=== PATIENT | female | born 1940 | race Caucasian/White ===

== ENCOUNTER → 2017-11-19 12:39 | Outpatient (CLI) | payer MEDICARE, SELFPAY ==
[2017-11-19 13:52] LABS: Hematocrit 40.4 % (37-47); Hemoglobin 13.7 g/dl (12.0-15.0); Mean Corp Hgb Conc 33.9 g/gl (32-36); Mean Corpuscular Hgb 24.2 pg (27.0-32.0); Mean Corpuscular Volume 71.5 fL (81-99); Mean Platelet Vol. 10.3 fl (6.2-12.0); Platelet Count 369 K/mm3 (150-450); RBC Distribution Width CV 19.9 % (11.6-14.6); Red Blood Count 5.65 M/mm3 (4.2-5.4); White Blood Count 9.2 K/mm3 (4.4-11.0)
[2017-11-19 13:54] LABS: Scan Indicated on CBC? Y/N NO
[2017-11-19 14:34] LABS: ALB/GLOB Ratio 0.7 RATIO (0.9-2.4); AST(SGOT) 26 U/L (15-37); Alanine Aminotransfer ALT/SGPT 39 U/L (13-56); Albumin, Serum 3.5 g/dL (3.2-5.0); Alkaline Phosphatase 94 U/L (45-117); Anion Gap 11 (5-15); BUN 21 mg/dL (7-18); BUN/Creat Ratio 16.3 RATIO (10-20); Calcium,Total 9.1 mg/dL (8.5-10.1); Chloride 101 mmol/L (98-107); Cholesterol 139 mg/dL (200); Creatinine, Serum 1.29 mg/dL (0.55-1.02); EST Glomerular Filtration Rate 43 mL/min (>60); Est Glom Filt Rate - Afr Amer 52 mL/min (>60); Globulin 4.9 g/dL (2.2-4.2); Glucose 174 mg/dL (70-110); High Density Lipoprotein 49 mg/dL; Potassium 4.3 mmol/L (3.5-5.1); Protein, Total 8.4 g/dL (6.4-8.2); Sodium Level 136 mmol/L (136-145); Triglycerides 108 mg/dL; Very Low Density Lipoprotein 22 mg/dL (5-40)
[2017-11-19 14:36] LABS: Hemoglobin A1c 6.9 % (4.2-6.3)
== END ==
PROVIDERS: Family Provider Family Medicine; PCP Family Medicine; Visit Provider Family Medicine
DX: I10 Essential (primary) hypertension (principal); E11.9 Type 2 diabetes mellitus without complications; E78.2 Mixed hyperlipidemia
CPT/HCPCS: 36415; 80053; 80061; 82043; 83036; 85027

== ENCOUNTER → 2018-02-25 09:51 | Outpatient (CLI) | payer MEDICARE, SELFPAY ==
[2018-02-25 12:40] LABS: Hemoglobin A1c 7.3 % (4.2-6.3)
[2018-02-25 12:46] LABS: AST(SGOT) 28 U/L (15-37); Alanine Aminotransfer ALT/SGPT 33 U/L (13-56); Albumin, Serum 3.4 g/dL (3.2-5.0); Alkaline Phosphatase 94 U/L (45-117); Anion Gap 12 (5-15); Bilirubin, Direct 0.25 mg/dL (0.00-0.30); Calcium,Total 8.9 mg/dL (8.5-10.1); Chloride 105 mmol/L (98-107); Cholesterol 129 mg/dL (200); EST Glomerular Filtration Rate 39 mL/min (>60); Est Glom Filt Rate - Afr Amer 47 mL/min (>60); Globulin 4.7 g/dL (2.2-4.2); Glucose 161 mg/dL (74-106); High Density Lipoprotein 53 mg/dL; Potassium 4.2 mmol/L (3.5-5.1); Protein, Total 8.1 g/dL (6.4-8.2); Sodium Level 140 mmol/L (136-145); Triglycerides 112 mg/dL; Very Low Density Lipoprotein 22 mg/dL (5-40)
[2018-02-25 13:16] LABS: BUN 21 mg/dL (7-18)
== END ==
PROVIDERS: Family Provider Family Medicine; PCP Family Medicine; Visit Provider Family Medicine
DX: E11.9 Type 2 diabetes mellitus without complications (principal); I10 Essential (primary) hypertension; E78.5 Hyperlipidemia, unspecified
CPT/HCPCS: 36415; 80048; 80061; 80076; 83036

== ENCOUNTER → 2018-02-27 11:33 | Outpatient (CLI) | payer MEDICARE, SELFPAY ==
[2018-02-27 14:02] LABS: Microalbumin:Creatinine Ratio 93.3 mg/g CRE (<30 mg/g CRE)
== END ==
PROVIDERS: Family Provider Family Medicine; PCP Family Medicine; Visit Provider Family Medicine
DX: I10 Essential (primary) hypertension (principal); E78.5 Hyperlipidemia, unspecified; E11.9 Type 2 diabetes mellitus without complications
CPT/HCPCS: 82043; 82570

== ENCOUNTER → 2018-08-07 10:15 | Outpatient (CLI) | payer MEDICARE, SELFPAY ==
[2018-08-07 13:25] LABS: Anion Gap 8 (5-15); BUN 17 mg/dL (7-18); BUN/Creat Ratio 13.8 RATIO (10-20); Calcium,Total 9.1 mg/dL (8.5-10.1); Chloride 105 mmol/L (98-107); Cholesterol 152 mg/dL (200); Creatinine, Serum 1.23 mg/dL (0.55-1.02); EST Glomerular Filtration Rate 45 mL/min (>60); Est Glom Filt Rate - Afr Amer 55 mL/min (>60); Glucose 145 mg/dL (74-106); High Density Lipoprotein 46 mg/dL; Potassium 4.2 mmol/L (3.5-5.1); Sodium Level 137 mmol/L (136-145); Triglycerides 99 mg/dL; Very Low Density Lipoprotein 20 mg/dL (5-40)
== END ==
PROVIDERS: Family Provider Family Medicine; PCP Family Medicine; Visit Provider Family Medicine
DX: I48.91 Unspecified atrial fibrillation (principal); I10 Essential (primary) hypertension
CPT/HCPCS: 36415; 80048; 80061; 82330

== ENCOUNTER → 2019-02-25 15:59 | Outpatient (CLI) | payer MEDICARE, SELFPAY ==
[2019-02-25 18:58] LABS: Anion Gap 10 (5-15); BUN 28 mg/dL (7-18); BUN/Creat Ratio 22.4 RATIO (10-20); Calcium,Total 9.7 mg/dL (8.5-10.1); Chloride 103 mmol/L (98-107); Creatinine, Serum 1.25 mg/dL (0.55-1.02); EST Glomerular Filtration Rate 44 mL/min (>60); Est Glom Filt Rate - Afr Amer 54 mL/min (>60); Glucose 175 mg/dL (74-106); Potassium 5.1 mmol/L (3.5-5.1); Sodium Level 139 mmol/L (136-145)
== END ==
PROVIDERS: Family Provider Family Medicine; PCP Family Medicine; Referring Provider Family Medicine; Visit Provider Family Medicine
DX: I10 Essential (primary) hypertension (principal)
CPT/HCPCS: 36415; 80048

== ENCOUNTER → 2019-05-29 14:59 | Outpatient (CLI) | payer MEDICARE, SELFPAY ==
[2019-05-29 17:19] LABS: Anion Gap 11 (5-15); BUN 20 mg/dL (7-18); BUN/Creat Ratio 14.1 RATIO (10-20); Calcium,Total 9.3 mg/dL (8.5-10.1); Chloride 104 mmol/L (98-107); Cholesterol 158 mg/dL (200); Creatinine, Serum 1.42 mg/dL (0.55-1.02); EST Glomerular Filtration Rate 38 mL/min (>60); Est Glom Filt Rate - Afr Amer 46 mL/min (>60); Glucose 120 mg/dL (74-106); High Density Lipoprotein 50 mg/dL; Potassium 4.6 mmol/L (3.5-5.1); Sodium Level 137 mmol/L (136-145); Triglycerides 138 mg/dL; Very Low Density Lipoprotein 28 mg/dL (5-40)
== END ==
PROVIDERS: Family Provider Family Medicine; PCP Family Medicine; Referring Provider Family Medicine; Visit Provider Family Medicine
DX: E11.9 Type 2 diabetes mellitus without complications (principal)
CPT/HCPCS: 36415; 80048; 80061

== ENCOUNTER 2020-02-17 13:28 | Emergency (ER) | payer MEDICARE, SELFPAY ==
[2020-02-17 13:29] VITALS: BP 133/84; PULSE 118; RESP 24; TEMP 36.2; O2SAT 98; BMI 24.8
--- NOTE | 2020-02-17 14:07 | EKG12_ITS ---
Test Reason : Blood Pressure : / mmHG Vent. Rate : 089 BPM Atrial Rate : 077 BPM P-R Int : 000 ms QRS Dur : 082 ms QT Int : 374 ms P-R-T Axes : 000 009 212 degrees QTc Int : [address] & T wave abnormality, consider inferolateral ischemia Abnormal ECG Confirmed by ABY COLON, FELICIANO ([id number]), editor department CAT LEWIS ([id number]) on 02/22/2020 2:16:50 PM Referred By: JONATHAN Confirmed By:FELICIANO BADILLO MD
[2020-02-17 14:36] LABS: Absolute Lymphocyte Count 1.36 X10^3/uL (0.83-4.51); Absolute Neutrophil Count 11.1 X10^3/uL (2.0-7.7); Basophil# 0.02 X10^3/uL; Basophil% 0.1 % (0-1); Eosinophil# 0.02 X10^3/uL; Eosinophils% 0.1 % (0-5); Hematocrit 31.9 % (37-47); Hemoglobin 9.6 g/dL (12.0-15.0); Lymphocyte # 1.36 X10^3/ul (4.0); Lymphocyte % 9.8 % (19-41); Mean Corp Hgb Conc 30.1 g/dL (32-36); Mean Corpuscular Hgb 21.1 pg (27.0-32.0); Monocyte# 1.16 X10^3/uL; Monocyte% 8.3 % (0-10); NRBC Flagged by Analyzer 1.4 % (0-5); Neutrophil # 11.13 X10^3/uL (2.7-7.7); POSITIVE MORPHOLOGY YES; Platelet Count 360 K/mm3 (150-450); RBC Distribution Width CV 31.2 % (11.6-14.6); RBC Distribution Width SD 63.4 fl (35.1-43.9); Red Blood Count 4.56 M/mm3 (4.2-5.4); White Blood Count 13.9 K/mm3 (4.4-11.0)
[2020-02-17 14:41] LABS: Differential Indicated SCAN CRITERIA MET
--- NOTE | 2020-02-17 14:50 | RAD_ITS ---
STUDY: X-RAY - LEFT FOOT CLINICAL: Female, 79 years old. Poorly healing wound. Swelling. TECHNIQUE: 3 view(s) of the foot. COMPARISON: None. FINDINGS: There is an old, healed fracture of the fifth metatarsal. There is no evidence of acute fracture or dislocation. There are no significant degenerative changes. There are no radiodense foreign bodies. There are no definite radiographic findings of osteomyelitis. There is diffuse soft tissue swelling. RAD/Foot min 3 Views IMPRESSION: Old, healed fracture of the fifth metatarsal. No acute fracture or dislocation. Diffuse soft tissue swelling. No radiodense foreign body. No definite radiographic findings of osteomyelitis. Electronically Signed: José Miguel De Leon, at 15:20 EDT Tel , Service support ,
--- NOTE | 2020-02-17 14:50 | RAD_ITS ---
STUDY: X-RAY CHEST REASON FOR EXAM: Female, 79 years old. Shortness of breath TECHNIQUE: Frontal view of the chest COMPARISON: 07/25/2015 FINDINGS: The lungs are clear. There are no pleural effusions. There is no pneumothorax. The heart is enlarged. The visualized osseous structures are within normal limits. RAD/Chest 1 View (Portable) IMPRESSION: Cardiomegaly. Clear lungs. Electronically Signed: José Miguel De Leon, at 15:23 EDT Tel , Service support ,
[2020-02-17 15:08] LABS: Anisocytosis 1+
[2020-02-17 15:12] LABS: ALB/GLOB Ratio 0.4 RATIO (0.9-2.4); AST(SGOT) 42 U/L (15-37); Alanine Aminotransfer ALT/SGPT 19 U/L (13-56); Albumin, Serum 2.2 g/dL (3.2-5.0); Alkaline Phosphatase 186 U/L (45-117); Anion Gap 7 (5-15); BUN 34 mg/dL (7-18); BUN/Creat Ratio 25.6 RATIO (10-20); Calcium,Total 8.9 mg/dL (8.5-10.1); Chloride 109 mmol/L (98-107); Creatinine, Serum 1.33 mg/dL (0.55-1.02); EST Glomerular Filtration Rate 41 mL/min (>60); Est Glom Filt Rate - Afr Amer 50 mL/min (>60); Estimated Creatinine Clearance 28.02 ml/min; Globulin 5.3 g/dL (2.2-4.2); Glucose 254 mg/dL (74-106); Potassium 5.2 mmol/L (3.5-5.1); Protein, Total 7.5 g/dL (6.4-8.2); Sodium Level 136 mmol/L (136-145)
[2020-02-17 15:35] VITALS: BP 116/69; PULSE 99; RESP 20; TEMP 36.6; O2SAT 100
--- NOTE | 2020-02-17 15:57 | NURSING ---
DR HU FOR DR CASTILLO
--- NOTE | 2020-02-17 16:01 | NURSING ---
DR PETTY IN ER
--- NOTE | 2020-02-17 16:10 | NURSING ---
MED SURG TERELETSKY DRY GANGRENE LEFT GREAT TOE, URI
--- NOTE | 2020-02-17 16:58 | PCM.CONS.GEN ---
Reason for Consult Date of Consultation: 02/17/20 Reason for Consultation: Gangrene left 1st toe History of Present Illness: The patient is a 79 year old female presented to the ER with black left 1st toe. Patient relates she stepped on something in Nov 2019, and now the toe is black. She relates she thinks it is getting better. She did have two appointments scheduled to see me in office as a new patient, however she canceled them, first one she canceled due to concerns about the coronavirus and her other scheduled appointment was suppose to be today however she canceled because she declined to come to the ER instead. I was called by both Dr. Farias and Dr. Trinidad. There is concern about critical limb ischemia and transfer is being considered. Patient has pain to the toe. She is a smoker. Her WBC is elevated. She is resting on the bed in the her room in the ER. Past Medical History Allergies nut - unspecified Allergy (Verified 02/17/20 13:29) Itching Home Medications: Ambulatory Orders Medication Instructions Recorded Apixaban [Eliquis] 5 mg PO BID 02/17/20 Metoprolol Tartrate [Lopressor 50 mg PO BID 02/17/20 (beta margy)] Smoking Status: Former smoker Tobacco Use: Non-smoker - *Family History Maternal History Items: No pertinent history Review of Systems Constitutional: Denies: Chills, Fever Gastrointestinal: Denies: Nausea, Vomiting - Physical Exam Vitals/I&O's: Vital Signs Temp Pulse Resp BP Pulse Ox 98 F 99 20 H 116/69 100 02/17/20 15:35 02/17/20 15:35 02/17/20 15:35 02/17/20 15:35 02/17/20 15:35 Oxygen Delivery Method Room Air Weight: 61.689 kg Body Mass Index (BMI) 24.8 Intake and Output for Last 24 Hours 02/15/20 02/16/20 02/17/20 23:59 23:59 23:59 Intake Total 500 / 500 Balance 500 / 500 General: Alert, Oriented x3, Cooperative, No apparent distress Extremities: No Calf Tenderness, Cool - Left foot is cool, Diminished Peripheral Pulses, Tenderness - to the left 1st toe, - - There is dry gangrene to the 1st toe on the left foot, there is mottled appears to the left foot and distal leg with decreased temperature and delayed capillary fill time to the toes, there is small eschar to the distal left 3rd toe, pedal pulses diminished. There is no visible abscess, and otherwise no open ulcerations, no drainage, no fluctuance, no maloder present to the foot or ankle bilateral. Sensation intact to light touch bilateral foot. Musculoskeletal: Muscle Wasting Psych/Mental Status: Normal Affect, Appropriate, Alert and oriented to time, place, person, mood and affect Laboratory Results 02/17/20 14:18: WBC 13.9 H, RBC 4.56, Hgb 9.6 L, Hct 31.9 L, MCV 70.0 L, MCH 21.1 L, MCHC 30.1 L, RDW Std Deviation 63.4 H, RDW Coeff of Marga 31.2 H, Plt Count 360, MPV 10.0, Immature Gran % (Auto) 1.700 H, Neut % (Auto) 80.0 H, Lymph % (Auto) 9.8 L, Green % (Auto) 8.3, Eos % (Auto) 0.1, Baso % (Auto) 0.1, Absolute Neuts (auto) 11.1 H, Absolute Lymphs (auto) 1.36, Nucleated RBC % 1.4, Anisocytosis 1+ 02/17/20 14:18: Sodium 136, Potassium 5.2 H, Chloride 109 H, Carbon Dioxide 20.0 L, Anion Gap 7, BUN 34 H, Creatinine 1.33 H, Estim Creat Clear Calc 28.02, Est GFR (MDRD) Af Amer 50 L, Est GFR (MDRD) Non-Af 41 L, BUN/Creatinine Ratio 25.6 H, Glucose 254 H, Calcium 8.9, Total Bilirubin 0.70, AST 42 H, ALT 19, Alkaline Phosphatase 186 H, Total Protein 7.5, Albumin 2.2 L, Globulin 5.3 H, Albumin/Globulin Ratio 0.4 L Assessment/Plan All Active Problems Colles' fracture of left radius (Acute) Dehydration (Acute) Atrial fibrillation with RVR (Acute) Diarrhea (Acute) Wrist fracture, left (Acute) Gangrene, critical limb ischemia left foot Lower extremity Peripheral Arterial Disease Evaluation performed. Reviewed findings with patient, discussed with Dr. Farias and Vivi. I was in contact with Dr. Ching to check his availability, and he is not available until Saturday. Given findings patient will be transferred to [facility] today for urgent vascular evaluation and management.
[2020-02-17 17:23] VITALS: BP 104/88; PULSE 113; RESP 14; TEMP 36.6; O2SAT 99
--- NOTE | 2020-02-17 17:54 | ED.VIS.GEN ---
History of Present Illness Chief Complaint: Wound Informant: Patient Onset: Month(s) - 2 Narrative: Presents from home for evaluation wound to left great toe. Reports was walking in the end of November when she felt pain there is no direct injuries. She reports her whole toe was black at one point and has slowly improved. She did not see a healthcare provider since. Reports history of diabetes not on any medications, history of peripheral arterial disease noted from 2016 she is unclear if she seen a vascular surgeon. She is half pack per day smoker. Reports been having increased pain with ambulation. No fevers. No drainage from the wound. Reports daughter was setting up an outpatient podiatry follow-up had one at 1:10 PM today however decided to come to the emergency department. She reports she is had some dyspnea with exertion for the past week with mild cough. Denies fever. Denies wheezing. She is on Eliquis for history of atrial fibrillation along with metoprolol. Denies any headache myalgias vomiting or diarrhea. Prior similar symptoms: No Past Medical History - Allergies and Home Meds Allergies/Adverse Reactions: Allergies nut - unspecified Allergy (Verified 02/17/20 13:29) Itching Primary Care Physician: Theo Hubbard MD [Primary Care Provider] - Past Medical History: - - Atrial fibrillation, diabetes, peripheral arterial disease, Smoking Status: Former smoker - Family History Maternal Family History: Reports: No pertinent history Review of Systems General: Denies: Chills, Fever, Sweats Eyes: Denies: Visual changes - bilaterally, Diplopia ENT: Denies: Rhinorrhea, Sore throat Cardiovascular: Denies: Chest pain, Palpitations Respiratory: Reports: Cough. Denies: Dyspnea, Dyspnea on exertion Gastrointestinal: Denies: Abdominal pain, Nausea, Vomiting, Diarrhea, Melena, Hematochezia Genitourinary: Denies: Dysuria, Hematuria, Frequency Musculoskeletal: Denies: Back pain, Extremity Pain Skin: Reports: Wounds. Denies: Rash Neurological: Denies: Headache, Weakness, Numbness Physical Exam Vital Signs/Narrative: Vital Signs Temp Pulse Resp BP Pulse Ox 02/17/20 17:23 98 F 113 H 14 104/88 H 99 02/17/20 15:35 98 F 99 20 H 116/69 100 Inital Vital Signs reviewed: Yes General: Well nourished, Well developed, No Acute Distress Head: Normocephalic, Atraumatic Eyes: Perrl, EOMI ENT: Moist mucous membranes, No rhinorrhea Neck: Supple, Nontender Cardiovascular: Regular rate, Regular rhythm, No murmurs, Tachycardia Respiratory: No distress, CTA bilaterally, Chest nontender Abdomen: Soft, Nontender, Nondistended, Normal bowel sounds Back: Nontender, Normal Inspection Extremities: - - Left foot: Great toe gangrenous distal phalanx, no drainage. No streaking. Diminished pulses of the left foot however palpable PT pulses. There was noted slight cyanosis distal tips of toes 2 through 4. Skin: - - See above Neurological: Alert, Oriented x3, Cranial nerves II-XII grossly intact, Normal Strength, Normal Sensation Psychological: Normal affect, Normal Mood Diagnostic/Tx/Re-eval Clinical Impression(s) from Imaging Studies Chest X-Ray 02/17/20 14:50 IMPRESSION: Cardiomegaly. Clear lungs. Electronically Signed: José Miguel Haley, at 15:23 EDT Tel , Service support , Foot X-Ray 02/17/20 14:50 IMPRESSION: Old, healed fracture of the fifth metatarsal. No acute fracture or dislocation. Diffuse soft tissue swelling. No radiodense foreign body. No definite radiographic findings of osteomyelitis. Electronically Signed: José Miguel Haley, at 15:20 EDT Tel , Service support , Abnormal Lab Results 02/17/20 02/17/20 14:18 14:18 WBC 13.9 H RBC 4.56 Hgb 9.6 L Hct 31.9 L MCV 70.0 L MCH 21.1 L MCHC 30.1 L RDW Std Deviation 63.4 H RDW Coeff of Marga 31.2 H Plt Count 360 MPV 10.0 Immature Gran % (Auto) 1.700 H Neut % (Auto) 80.0 H Lymph % (Auto) 9.8 L Kay % (Auto) 8.3 Eos % (Auto) 0.1 Baso % (Auto) 0.1 Absolute Neuts (auto) 11.1 H Absolute Lymphs (auto) 1.36 Nucleated RBC % 1.4 Anisocytosis 1+ Sodium 136 Potassium 5.2 H Chloride 109 H Carbon Dioxide 20.0 L Anion Gap 7 BUN 34 H Creatinine 1.33 H Estim Creat Clear Calc 28.02 Est GFR (MDRD) Af Amer 50 L Est GFR (MDRD) Non-Af 41 L BUN/Creatinine Ratio 25.6 H Glucose 254 H Calcium 8.9 Total Bilirubin 0.70 AST 42 H ALT 19 Alkaline Phosphatase 186 H Total Protein 7.5 Albumin 2.2 L Globulin 5.3 H Albumin/Globulin Ratio 0.4 L - Medical Decision Making Patient nontoxic however tachycardic on arrival. Her reported history exam concerns for dry gangrenous screen of the great toe. With patient having appointment with podiatry for which she did not go I did discuss with Dr. Aviles after my evaluation with her reported improving gangrenous findings from her history, he states he would like her admitted for his evaluation likely debridement with vascular involvement. Work-up was initiated, white count 13.9, hemoglobin 9.6, creatinine 1.2. With patient's cough chest x-ray obtained which was negative. EKG is rate controlled atrial fibrillation. I did have hospitalist evaluation in the ED by Dr. Trinidad, who evaluate the patient, states there is limited vascular involvement only on Wednesdays, they will be unable to follow, therefore he asked Dr. Aviles to evaluate in the ED. Evaluated, with concerns of cyanosis and decreased vascular flow, they did feel vascular surgeon needs to be involved therefore recommended tertiary transfer, patient [facility] to [facility]. Transfer line was contacted, patient will be admitted under the service of Dr. Marquez. With concern for dry gangrene, do not feel antibiotics are necessary at this time. ED Disposition - Plan for ED Patient: Disposition: Home or Assisted Living Diagnosis: dry gangrene left great toe, PAD (peripheral artery disease), Intermittent claudication Referrals: Theo Hubbard MD [Primary Care Provider] -
--- NOTE | 2020-02-17 18:02 | NURSING ---
[place] [id number] ROOM 5106 NURSE TO NURSE [phone]ONZ[address]Z
--- NOTE | 2020-02-17 18:10 | NURSING ---
[facility] CALLED. ETA IS 30 TO 45 MIN
--- NOTE | 2020-02-17 18:21 | ED.RN ---
Called report to CHELLE Euceda at [facility].
[2020-02-17 18:30] VITALS: BP 106/76; BP 110/76; PULSE 110; RESP 15; RESP 26; TEMP 36.8; O2SAT 100; O2SAT 99
== END 2020-02-17 19:05 | disposition short-term general hospital (02) ==
PROVIDERS: Emergency Provider Emergency Medicine; PCP Family Medicine
DX: E11.52 Type 2 diabetes mellitus with diabetic peripheral angiopathy with gangrene (principal); I48.91 Unspecified atrial fibrillation; R00.0 Tachycardia, unspecified; R06.09 Other forms of dyspnea; F17.200 Nicotine dependence, unspecified, uncomplicated; Z79.01 Long term (current) use of anticoagulants; Z79.899 Other long term (current) drug therapy
CPT/HCPCS: 71045; 73630; 80053; 85025; 93005; 99285; J7040

== ENCOUNTER → 2020-04-20 15:16 | Outpatient (CLI) | payer MEDICARE, SELFPAY ==
[2020-04-20 17:59] LABS: Vitamin D,25 Hydroxy 57.8 ng/mL
[2020-04-20 18:58] LABS: Anion Gap 8 (5-15); BUN 33 mg/dL (7-18); BUN/Creat Ratio 28.9 RATIO (10-20); Calcium,Total 9.1 mg/dL (8.5-10.1); Chloride 103 mmol/L (98-107); Cholesterol 122 mg/dL (200); Creatinine, Serum 1.14 mg/dL (0.55-1.02); EST Glomerular Filtration Rate 49 mL/min (>60); Est Glom Filt Rate - Afr Amer 59 mL/min (>60); Glucose 133 mg/dL (74-106); High Density Lipoprotein 57 mg/dL; Potassium 4.5 mmol/L (3.5-5.1); Sodium Level 137 mmol/L (136-145); Triglycerides 102 mg/dL; Very Low Density Lipoprotein 20 mg/dL (5-40)
== END ==
PROVIDERS: PCP Family Medicine; Visit Provider Family Medicine
DX: E11.9 Type 2 diabetes mellitus without complications (principal); E55.9 Vitamin D deficiency, unspecified
CPT/HCPCS: 36415; 80048; 80061; 82306

== ENCOUNTER → 2020-05-03 13:31 | Outpatient (CLI) | payer MEDICARE, SELFPAY ==
[2020-05-03 15:14] LABS: Hematocrit 32.4 % (37-47); Hemoglobin 9.4 g/dL (12.0-15.0); Mean Corpuscular Hgb 23.7 pg (27.0-32.0); Mean Corpuscular Volume 81.8 fL (81-99); Mean Platelet Vol. 9.5 fl (6.2-12.0); POSITIVE MORPHOLOGY YES; Platelet Count 438 K/mm3 (150-450); RBC Distribution Width CV 20.7 % (11.6-14.6); RBC Distribution Width SD 61.5 fl (35.1-43.9); Red Blood Count 3.96 M/mm3 (4.2-5.4); White Blood Count 9.5 K/mm3 (4.4-11.0)
[2020-05-03 15:16] LABS: Scan Indicated on CBC? Y/N YES- FLAGS NOTED
[2020-05-03 16:10] LABS: Differential Comment SEE COMMENTS
== END ==
PROVIDERS: PCP Family Medicine
DX: I50.22 Chronic systolic (congestive) heart failure (principal)
CPT/HCPCS: 36415; 85027

== ENCOUNTER → 2020-10-26 15:36 | Outpatient (CLI) | payer MEDICARE, SELFPAY ==
[2020-05-11 13:40] VITALS: BMI 24.8
[2020-10-26 18:37] LABS: Anion Gap 10 (5-15); BUN 48 mg/dL (7-18); BUN/Creat Ratio 29.4 RATIO (10-20); Calcium,Total 9.6 mg/dL (8.5-10.1); Chloride 102 mmol/L (98-107); Cholesterol 140 mg/dL (200); Creatinine, Serum 1.63 mg/dL (0.55-1.02); EST Glomerular Filtration Rate 32 mL/min (>60); Est Glom Filt Rate - Afr Amer 39 mL/min (>60); Glucose 204 mg/dL (74-106); High Density Lipoprotein 66 mg/dL; Potassium 4.9 mmol/L (3.5-5.1); Sodium Level 135 mmol/L (136-145); Triglycerides 89 mg/dL; Very Low Density Lipoprotein 18 mg/dL (5-40)
== END ==
PROVIDERS: PCP Family Medicine; Referring Provider Family Medicine; Visit Provider Family Medicine
DX: E11.9 Type 2 diabetes mellitus without complications (principal)
CPT/HCPCS: 36415; 80048; 80061

== ENCOUNTER 2020-12-27 08:26 | Outpatient (RCR) | payer MEDICARE, SELFPAY ==
[2020-05-11 13:40] VITALS: BMI 24.8
[2020-12-27] MEDS: COVID-19 VACC, MRNA(PFIZER)/PF 30 MCG/0.3 ML SYRINGE IM (11:06)
[2021-01-17] MEDS: COVID-19 VACC, MRNA(PFIZER)/PF 30 MCG/0.3 ML SYRINGE IM (11:03)
== END 2021-03-28 23:59 ==
LOC: IMMUN 08:26
PROVIDERS: PCP Family Medicine; Visit Provider Family Medicine
DX: Z23 Encounter for immunization (principal)
CPT/HCPCS: 0001A; 0002A; 91300

== ENCOUNTER → 2021-01-25 14:42 | Outpatient (CLI) | payer MEDICARE, SELFPAY ==
[2020-05-11 13:40] VITALS: BMI 24.8
[2021-01-25 18:18] LABS: Anion Gap 5 (5-15); BUN 31 mg/dL (7-18); BUN/Creat Ratio 19.9 RATIO (10-20); Calcium,Total 9.5 mg/dL (8.5-10.1); Chloride 105 mmol/L (98-107); Creatinine, Serum 1.56 mg/dL (0.55-1.02); EST Glomerular Filtration Rate 34 mL/min (>60); Est Glom Filt Rate - Afr Amer 41 mL/min (>60); Glucose 162 mg/dL (74-106); Potassium 4.2 mmol/L (3.5-5.1); Sodium Level 135 mmol/L (136-145)
== END ==
PROVIDERS: PCP Family Medicine; Referring Provider Family Medicine; Visit Provider Family Medicine
DX: E11.9 Type 2 diabetes mellitus without complications (principal)
CPT/HCPCS: 36415; 80048

== ENCOUNTER 2021-03-13 20:26 | Inpatient (IN) | payer MEDICARE, SELFPAY ==
[2020-05-11 13:40] VITALS: BMI 24.8
[2021-03-13 20:26] VITALS: BP 125/58; PULSE 65; RESP 18; TEMP 36.6; O2SAT 97; BMI 26.9
[2021-03-13 21:24] LABS: Absolute Lymphocyte Count 2.43 X10^3/uL (0.83-4.51); Absolute Neutrophil Count 6.8 X10^3/uL (2.0-7.7); Basophil# 0.06 X10^3/uL; Basophil% 0.6 % (0-1); Eosinophil# 0.09 X10^3/uL; Eosinophils% 0.9 % (0-5); Lymphocyte # 2.43 X10^3/ul (0.83-4.51); Lymphocyte % 23.1 % (19-41); Mean Corp Hgb Conc 26.3 g/dL (32-36); Mean Corpuscular Hgb 15.7 pg (27.0-32.0); Mean Corpuscular Volume 59.7 fL (81-99); Mean Platelet Vol. 9.9 fl (6.2-12.0); Monocyte# 1.06 X10^3/uL; Monocyte% 10.1 % (0-10); NRBC Flagged by Analyzer 1.7 % (0-5); Neutrophil # 6.84 X10^3/uL (2.7-7.7); Neutrophil % 64.7 % (47-70); POSITIVE COUNT YES; POSITIVE MORPHOLOGY YES; Platelet Count 565 K/mm3 (150-450); RBC Distribution Width CV 20.9 % (11.6-14.6); RBC Distribution Width SD 42.2 fl (35.1-43.9); Red Blood Count 2.68 M/mm3 (4.2-5.4); White Blood Count 10.5 K/mm3 (4.4-11.0)
[2021-03-13 21:53] LABS: Differential Indicated SCAN CRITERIA MET
[2021-03-13 21:54] LABS: Hemoglobin 4.2 g/dL (12.0-15.0)
[2021-03-13 21:55] LABS: Differential Comment SCANNED
[2021-03-13 22:03] LABS: International Normalized Ratio 1.9
[2021-03-13 22:26] VITALS: BP 150/59; PULSE 57; RESP 20; O2SAT 99
--- NOTE | 2021-03-13 22:49 | EX.ED.DYSGE1 ---
HPI History of Present Illness Chief Complaint: Abn Labs Narrative Narrative: Patient presents to the emergency department brought in by her daughter, she has been more somnolent and weak recently, she had an outpatient blood draw which showed low hemoglobin. She does have a history of peripheral vascular disease, she has been seen at [facility], she is on Eliquis. She did say she had a bowel movement today with some blood in it. No abdominal pain, no other injuries. [facility] Medical History (Updated 03/13/21 @ 22:[address] Theo Glover MD) Anemia Atrial fibrillation with RVR CHF (congestive heart failure) Colles' fracture of left radius Congestive heart failure (CHF) Coronary artery disease Dehydration Diabetes Diarrhea High cholesterol PAD (peripheral artery disease) Wrist fracture, left Home Medications apixaban 5 mg PO BID 02/17/20 [History Last Taken 02/17/20] aspirin 81 mg tablet,delayed release 81 mg PO DAILY 05/11/20 [History Last Taken Unknown] atorvastatin 80 mg tablet 80 mg PO DAILY 05/11/20 [History Last Taken Unknown] furosemide 20 mg tablet 20 mg PO DAILY 05/11/20 [History Last Taken Unknown] glipizide 5 mg tablet 5 mg PO DAILY 05/11/20 [History Last Taken Unknown] metoprolol tartrate 50 mg tablet 50 mg PO DAILY tab 05/11/20 [History Last Taken Unknown] amiodarone 200 mg DAILY 03/13/21 [History Last Taken Unknown] Allergy/AdvReac Type Severity Reaction Status Date / Time nut - unspecified Allergy Itching Verified 05/11/20 13:38 Surgical History History of surgery on left wrist S/P arteriogram of extremity S/P cataract extraction S/P right heart catheterization 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 Debbie Adams MD) Smoking Status: Current some day smoker alcohol intake: former ROS ROS ED ROS Narrative Past medical history: Reviewed Medications: Reviewed Social history: Noncontributory Review of systems: All systems negative except as indicated General: No fever. Generalized weakness as in HPI Eyes: No visual changes ENT: No upper airway congestion, normal voice Neck: No neck pain Cardiovascular: No chest pain Respiratory: No shortness of breath or cough Gastrointestinal: No abdominal pain, nausea vomiting or diarrhea. She did notice bright red blood per rectum Genitourinary: No dysuria Musculoskeletal: Denies myalgias no difficulty with ambulation Skin: No rash Neurological: No memory loss, confusion or any focal weakness Psych: No recent behavioral changes Hematologic: No easy bleeding or easy bruising EXAM Physical Exam Narrative Exam Narrative: Physical exam General: Patient appears chronically ill Head: Normocephalic, Atraumatic Eyes: Conjunctiva are quite pale ENT: Slightly dry mucous membranes Neck: Supple, Nontender, No lymphadenopathy Cardiovascular: Regular rate, Regular rhythm Respiratory: No distress, CTA bilaterally Abdomen: Soft, Nontender, Nondistended Back: Nontender, Normal Inspection. Negative for: CVA tenderness Extremities: Nontender, No edema Skin: Pale Rectal: There is bright red blood no obvious hemorrhoid Neurological: Alert, Normal Strength, Normal Sensation Psychological: Normal affect Const Vital Signs: 03/13/21 20:26 03/13/21 20:39 03/13/21 22:26 Temperature 97.8 F Temperature Source Temporal Pulse Rate 65 57 L Respiratory Rate 18 20 H Respiratory Effort Normal Non-Labored Respiratory Pattern Normal Blood Pressure 125/58 H 150/59 H Blood Pressure Mean 80 89 Pulse Ox 97 99 Oxygen Delivery Method Room Air Room Air MDM MDM MDM Narrative Medical decision making narrative: Patient is found to be quite anemic, hemoglobin is 4.2 we will transfuse. Initially she wanted to go to [facility] however they do not have any current beds. I will admit her here in the meantime. If she needs further treatment she can be transferred when there is beds. At this time she is hemodynamically stable thus I believe the bleed was somewhat slow. Lab Data Labs: Laboratory Results - last 24 hr 03/13/21 03/13/21 03/13/21 21:05 21:05 21:05 WBC 10.5 RBC 2.68 L Hgb 4.2 L* Hct 16.0 L MCV 59.7 L MCH 15.7 L MCHC 26.3 L RDW Std Deviation 42.2 RDW Coeff of Marga 20.9 H Plt Count 565 H MPV 9.9 Immature Gran % (Auto) 0.600 Neut % (Auto) 64.7 Lymph % (Auto) 23.1 [place] % (Auto) 10.1 H Eos % (Auto) 0.9 Baso % (Auto) 0.6 Absolute Neuts (auto) 6.8 Absolute Lymphs (auto) 2.43 Nucleated RBC % 1.7 Differential Comment SCANNED Diff Path Review February PT 21.0 H INR 1.9 Blood Type Cancelled Antibody Screen Cancelled Discharge Plan Triage Chief Complaint: Abn Labs ED Provider: Theo Glover Dx/Rx/DC Orders Clinical Impression: Acute GI bleeding, Anemia Prescriptions: No Action furosemide [Lasix] 20 mg tablet 20 mg PO DAILY RF: 0 atorvastatin 80 mg tablet 80 mg PO DAILY RF: 0 aspirin [Adult Low Dose Aspirin] 81 mg tablet,delayed release (DR/EC) 81 mg PO DAILY RF: 0 glipizide 5 mg tablet 5 mg PO DAILY RF: 0 apixaban 5 mg tablet 5 mg PO BID RF: 0 metoprolol tartrate 50 mg tablet 50 mg PO DAILY RF: 0 amiodarone 200 mg tablet 200 mg DAILY RF: 0 Primary Care Provider: Theo Hubbard Referrals: Theo Hubbard MD [Primary Care Provider] - Disposition Disposition: Acute Care Hospital [facility]
--- NOTE | 2021-03-13 23:00 | PCM.HP.STD ---
HPI - General HPI Narrative REBA STEPHENS, is a 80 F who presents to the emergency room after having an outpatient hemoglobin of 4. The patient has a significant past medical history of peripheral vascular disease for which she takes Eliquis routinely. Over the past few days she has noticed some red tinge to her stool. At this time she denies chest pain or shortness of breath, fever or chills and denies nausea. 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 She will be admitted to the hospital for blood transfusion. [facility] Medical History (Updated 03/13/21 @ 22:[address] Theo Glover MD) Anemia Atrial fibrillation with RVR CHF (congestive heart failure) Colles' fracture of left radius Congestive heart failure (CHF) Coronary artery disease Dehydration Diabetes Diarrhea High cholesterol PAD (peripheral artery disease) Wrist fracture, left Home Medications apixaban 5 mg PO BID 02/17/20 [History Last Taken 02/17/20] aspirin 81 mg tablet,delayed release 81 mg PO DAILY 05/11/20 [History Last Taken Unknown] atorvastatin 80 mg tablet 80 mg PO DAILY 05/11/20 [History Last Taken Unknown] furosemide 20 mg tablet 20 mg PO DAILY 05/11/20 [History Last Taken Unknown] glipizide 5 mg tablet 5 mg PO DAILY 05/11/20 [History Last Taken Unknown] metoprolol tartrate 50 mg tablet 50 mg PO DAILY tab 05/11/20 [History Last Taken Unknown] amiodarone 200 mg DAILY 03/13/21 [History Last Taken Unknown] Allergy/AdvReac Type Severity Reaction Status Date / Time nut - unspecified Allergy Itching Verified 05/11/20 13:38 Surgical History History of surgery on left wrist S/P arteriogram of extremity S/P cataract extraction S/P right heart catheterization 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 Debbie dAams MD) Smoking Status: Current some day smoker alcohol intake: former ROS Constitutional Constitutional: Reports fatigue; Denies chills Eyes Eyes: Denies change in vision ENT HEENT: Denies abnormal hearing Cardiovascular Cardiovascular: Denies chest pain Respiratory/Chest Respiratory/Chest: Denies shortness of breath at rest Gastrointestinal Gastrointestinal: Denies abdominal pain Genitourinary Genitourinary: Denies hematuria Integumentary Integumentary: Denies dry skin Neurologic Neurologic: Reports weakness Psychiatric Psychiatric: Denies anxiety Vital Signs Vital Signs Vital Signs: 03/13/21 20:26 03/13/21 20:39 03/13/21 22:26 Temperature 97.8 F Temperature Source Temporal Pulse Rate 65 57 L Respiratory Rate 18 20 H Respiratory Effort Normal Non-Labored Respiratory Pattern Normal Blood Pressure 125/58 H 150/59 H Blood Pressure Mean 80 89 Pulse Ox 97 99 Oxygen Delivery Method Room Air Room Air Weight Weight: 147 lb Body Mass Index (BMI) 26.9 Physical Exam Const oriented x3 Constitutional Narrative: pale HEENT normocephalic Eyes PERRL Neck supple Lymph Lymphatic: no lymphadenopathy noted Resp normal respiratory effort and clear to auscultation bilaterally Cardio regular rate, regular rhythm, S1 normal heart sound and S2 normal heart sound GI soft to palpation and non-tender Skin Skin Narrative: pale Neuro CN's II-XII intact bilaterally Psych affect normal Lab / Micro Data Result Diagrams: 03/13/21 21:05 03/13/21 21:05 Labs: Laboratory Results - last 24 hr 03/13/21 03/13/21 03/13/21 21:05 21:05 21:05 WBC 10.5 RBC 2.68 L Hgb 4.2 L* Hct 16.0 L MCV 59.7 L MCH 15.7 L MCHC 26.3 L RDW Std Deviation 42.2 RDW Coeff of Marga 20.9 H Plt Count 565 H MPV 9.9 Immature Gran % (Auto) 0.600 Neut % (Auto) 64.7 Lymph % (Auto) 23.1 [place] % (Auto) 10.1 H Eos % (Auto) 0.9 Baso % (Auto) 0.6 Absolute Neuts (auto) 6.8 Absolute Lymphs (auto) 2.43 Nucleated RBC % 1.7 Differential Comment SCANNED Diff Path Review February foll PT 21.0 H INR 1.9 Blood Type Cancelled Antibody Screen Cancelled Crossmatch 03/13/21 03/13/21 21:25 21:25 WBC RBC Hgb Hct MCV MCH MCHC RDW Std Deviation RDW Coeff of Marga Plt Count MPV Immature Gran % (Auto) Neut % (Auto) Lymph % (Auto) [place] % (Auto) Eos % (Auto) Baso % (Auto) Absolute Neuts (auto) Absolute Lymphs (auto) Nucleated RBC % Differential Comment Diff Path Review PT INR Blood Type AB POSITIVE Antibody Screen NEGATIVE Crossmatch See Detail Micro: Microbiology 03/13/21 21:10 SARS-CoV-2 Antigen (Rapid) - Final Interface Orders 03/13/21 21:10 Stool Occult Blood (ERIN) - Final Stool Occult Blood Positive Assessment & Plan Assessment/Plan (1) Acute GI bleeding: (2) Status post amputation of toe: (3) Diabetes: (4) Anemia: (5) High cholesterol: (6) PAD (peripheral artery disease): (7) CHF (congestive heart failure): PLAN: Plan 1. Acute anemia secondary to GI blood loss due to anticoagulation with Eliquis?admit patient to general medical floor type cross transfuse 2 units packed red blood cells repeat H&H 1 hour posttransfusion 2. Diabetes?continue home care routine 3. Hyperlipidemia?continue statin 4. DVT prophylaxis?SCDs When hemodynamically stable consider transfer to [facility] or discharge to home to have outpatient procedure to recanalize her bypass in the left leg Visit Charges Inpatient E&M: 07390 Init Hosp L2
[2021-03-13 23:02] LABS: ALB/GLOB Ratio 0.7 RATIO (0.9-2.4); AST(SGOT) 20 U/L (15-37); Alanine Aminotransfer ALT/SGPT 20 U/L (13-56); Albumin, Serum 3.2 g/dL (3.2-5.0); Alkaline Phosphatase 107 U/L (45-117); Anion Gap 12 (5-15); BUN 48 mg/dL (7-18); BUN/Creat Ratio 22.3 RATIO (10-20); Chloride 101 mmol/L (98-107); Creatinine, Serum 2.15 mg/dL (0.55-1.02); EST Glomerular Filtration Rate 24 mL/min (>60); Est Glom Filt Rate - Afr Amer 29 mL/min (>60); Estimated Creatinine Clearance 17.06 ml/min; Globulin 4.8 g/dL (2.2-4.2); Glucose 156 mg/dL (74-106); Sodium Level 133 mmol/L (136-145)
[2021-03-13 23:05] VITALS: BP 144/41; PULSE 57; RESP 15; TEMP 36.8; O2SAT 100
[2021-03-13 23:24] VITALS: BP 144/41; PULSE 60; RESP 17; TEMP 36.4; O2SAT 97
[2021-03-13 23:29] VITALS: BP 138/48; PULSE 59; RESP 13; TEMP 36.6; O2SAT 97
[2021-03-13 23:51] VITALS: BP 138/48; PULSE 56; RESP 13; TEMP 36.8; O2SAT 100
[2021-03-14] VITALS (38 sets, daily range): BP systolic 87–180; BP diastolic 21–101; PULSE 44–63; RESP 16–26; TEMP 30.2–37; O2SAT 17–100; BMI 27.2
[2021-03-14 05:23] LABS: Absolute Lymphocyte Count 2.21 X10^3/uL (0.83-4.51); Absolute Neutrophil Count 4.7 X10^3/uL (2.0-7.7); Basophil# 0.07 X10^3/uL; Basophil% 0.9 % (0-1); Eosinophil# 0.13 X10^3/uL; Eosinophils% 1.6 % (0-5); Hematocrit 22.1 % (37-47); Hemoglobin 6.3 g/dL (12.0-15.0); Lymphocyte # 2.21 X10^3/ul (0.83-4.51); Lymphocyte % 27.9 % (19-41); Mean Corp Hgb Conc 28.5 g/dL (32-36); Mean Corpuscular Hgb 19.6 pg (27.0-32.0); Mean Corpuscular Volume 68.6 fL (81-99); Mean Platelet Vol. 9.3 fl (6.2-12.0); Monocyte# 0.74 X10^3/uL; Monocyte% 9.4 % (0-10); NRBC Flagged by Analyzer 1.5 % (0-5); Neutrophil # 4.73 X10^3/uL (2.7-7.7); Neutrophil % 59.8 % (47-70); POSITIVE MORPHOLOGY YES; Platelet Count 435 K/mm3 (150-450); RBC Distribution Width CV 30.5 % (11.6-14.6); RBC Distribution Width SD 68.7 fl (35.1-43.9); Red Blood Count 3.22 M/mm3 (4.2-5.4); White Blood Count 7.9 K/mm3 (4.4-11.0)
[2021-03-14 05:24] LABS: Differential Indicated SCAN CRITERIA MET
[2021-03-14 05:48] LABS: Differential Comment SCANNED; Hypochromasia 2+
[2021-03-14 05:49] LABS: Anisocytosis 2+; Macrocytosis RARE; Microcytosis 2+
[2021-03-14 05:50] LABS: Anion Gap 7 (5-15); Calcium,Total 8.4 mg/dL (8.5-10.1); Chloride 103 mmol/L (98-107); Creatinine, Serum 1.94 mg/dL (0.55-1.02); EST Glomerular Filtration Rate 27 mL/min (>60); Est Glom Filt Rate - Afr Amer 32 mL/min (>60); Glucose 126 mg/dL (74-106); Potassium 3.8 mmol/L (3.5-5.1); Sodium Level 135 mmol/L (136-145)
[2021-03-14 05:51] LABS: Acanthocytes 2+; BUN 40 mg/dL (7-18); BUN/Creat Ratio 20.6 RATIO (10-20)
--- NOTE | 2021-03-14 08:17 | CASEMGMT ---
As initial nursing assessment, pt has LW/POA, will bring in papers, as per pt daughter Hermila is pt's medical POA. ALONA Wilson
[2021-03-14] MEDS: Amiodarone 200 MG Tablet PO (08:23)
[2021-03-14] MEDS: Metoprolol Tartrate 50 MG Tablet PO (08:23)
[2021-03-14] MEDS: glipiZIDE 5 MG Tablet PO (08:23)
--- NOTE | 2021-03-14 09:40 | CASEMGMT ---
Addendum entered by Dipti Brandt 03/14/21 10:57: TC to pt dtr Hermila to obtain further information. She states that since 2019 until now , pt has had 3 vascular surgeries and one is scheduled for next week. She states pt has had [facility] and recovered at her home after each surgery except for one where she went to a SNF. [facility] is not set up yet but will be when pt has surgery. Hermila sets up pt meds and is involved in her care. She states she feels her mother is getting confused at times and questions her ability to live at home. She states PCP mentioned to the patient that she should not live alone and pt threw a fit. She states she will revisit this again with him. She would like an update from nursing on pt status and plans. Notified nurse. Crib Tender is . Original Note: CHELLE JAIN Assessment: Face to Face with pt for initial transition planning/care coordination assessment. CHELLE JAIN introduced self and role at [facility], pt voices understanding and consents to assessment. Pt is A/O x4 and answers all questions appropriately at this time. Pt lying in bed receiving blood in no distress. Care providers, pharmacy, and demographics verified/updated. Admitting Dx: GI Bleed PCP: Haydee Specialists: Liu, vascular surgeon; Traci, podiatry; biller at [facility] but pt is unsure of his name. Preferred Pharmacy: [facility] [place] Insurance: [facility] Prescription Benefit: yes LW/HPOA: Pt has a LW on file at [facility]. Pt states she does not legally have a DPOA, she states she defers health related decisions to her daughter, Hermila Romero. LNOK: Hermila Romero, daughter Living Arrangements: Pt lives alone in a single story apt with 6 steps, a rail on each side, to enter. Pt states she is independent in ADL's. Transportation: Pt reports she drives self and denies concerns with transportation. DME/HHC/SNF: Pt has a w/c, walker, 2 canes, BSC, 3 grab bars in the bathroom and a shower seat. Pt states she does not currently have HHC but she is planning to stay at her daughter's house after this hospitalization and have [facility]. Asked pt if this was already set up and she states she does not know and asks this RN CM to call her daughter in a couple of hours as she is not home now. Pt states she was supposed to have had vascular surgery and she was going to her daughter's to recooperate. Pt has been in a SNF in [place]. She states never, ever again. Pt states no concerns with going home at time of dc. Pt states no further concerns/needs. CM to follow. Advised pt to ask CM if any further question/concerns/needs arise, voices understanding. Pt Goal: Stay with daughter for short period of time after hospitalization. Plan: Stay at daughter's home with family support. Will follow the [facility].
[2021-03-14 11:55] LABS: Bedside Glucose 134 mg/dL (70-110)
[2021-03-14 12:47] LABS: Pathologist Review Reviewed
[2021-03-14 14:26] LABS: Absolute Lymphocyte Count 1.13 X10^3/uL (0.83-4.51); Absolute Neutrophil Count 7.5 X10^3/uL (2.0-7.7); Basophil# 0.07 X10^3/uL; Basophil% 0.7 % (0-1); Differential Indicated SCAN CRITERIA MET; Eosinophil# 0.08 X10^3/uL; Eosinophils% 0.8 % (0-5); Hemoglobin 8.5 g/dL (12.0-15.0); Lymphocyte # 1.13 X10^3/ul (0.83-4.51); Lymphocyte % 11.6 % (19-41); Mean Corp Hgb Conc 29.3 g/dL (32-36); Mean Corpuscular Volume 71.6 fL (81-99); Mean Platelet Vol. 9.4 fl (6.2-12.0); Monocyte# 0.83 X10^3/uL; Monocyte% 8.5 % (0-10); NRBC Flagged by Analyzer 2.2 % (0-5); Neutrophil # 7.51 X10^3/uL (2.7-7.7); Neutrophil % 77.3 % (47-70); POSITIVE MORPHOLOGY YES; Platelet Count 413 K/mm3 (150-450); RBC Distribution Width CV 29.2 % (11.6-14.6); RBC Distribution Width SD 70.4 fl (35.1-43.9); Red Blood Count 4.05 M/mm3 (4.2-5.4); White Blood Count 9.7 K/mm3 (4.4-11.0)
[2021-03-14 14:40] LABS: Anisocytosis 2+
[2021-03-14 14:41] LABS: Acanthocytes 2+
--- NOTE | 2021-03-14 17:28 | NURSING ---
report called to [facility], daughter informed new room number 116, transferred per wheelchair with belongings to [id number]
--- NOTE | 2021-03-14 18:21 | PCM.PN.HOSP ---
Subjective Subjective Feels better, denies any bloody stools recently. She said on admission that she had some red-tinged stools but she told me that she did not have any dark stools or bright red stools. Occult studies are pending Objective Data Objective Data Vital Signs: Vital Signs Temp Pulse Resp BP Pulse Ox 96.8 F L 55 L 22 H 155/84 H 92 03/14/21 10:28 03/14/21 17:00 03/14/21 17:00 03/14/21 17:00 03/14/21 17:00 Oxygen Flow Rate (L/min) 97 Oxygen Delivery Method Room Air Weight: 149 lb 4.047 oz Body Mass Index (BMI) 27.2 Intake & Output: Intake and Output for Last 24 Hours 03/13/21 03/14/21 03/15/21 03:59 03:59 03:59 Intake Total 810 / 810 1270 / 1270 Output Total 750 / 750 Balance 810 / 810 520 / 520 Lab / Micro Data Result Diagrams: 03/14/21 14:15 03/14/21 05:00 Labs: Laboratory Results - last 24 hr 03/13/21 03/13/21 03/13/21 21:05 21:05 21:05 WBC 10.5 RBC 2.68 L Hgb 4.2 L* Hct 16.0 L MCV 59.7 L MCH 15.7 L MCHC 26.3 L RDW Std Deviation 42.2 RDW Coeff of Marga 20.9 H Plt Count 565 H MPV 9.9 Immature Gran % (Auto) 0.600 Neut % (Auto) 64.7 Lymph % (Auto) 23.1 Duval % (Auto) 10.1 H Eos % (Auto) 0.9 Baso % (Auto) 0.6 Absolute Neuts (auto) 6.8 Absolute Lymphs (auto) 2.43 Nucleated RBC % 1.7 Differential Comment SCANNED Diff Path Review Reviewed Hypochromasia Anisocytosis Microcytosis Macrocytosis Acanthocytes (Spur) PT 21.0 H INR 1.9 Sodium 133 L Potassium 4.0 Chloride 101 Carbon Dioxide 20.0 L Anion Gap 12 BUN 48 H Creatinine 2.15 H Estim Creat Clear Calc 17.06 Est GFR (MDRD) Af Amer 29 L Est GFR (MDRD) Non-Af 24 L BUN/Creatinine Ratio 22.3 H Glucose 156 H Calcium 9.0 Total Bilirubin 1.20 H AST 20 ALT 20 Alkaline Phosphatase 107 Total Protein 8.0 Albumin 3.2 Globulin 4.8 H Albumin/Globulin Ratio 0.7 L POC Glucose Blood Type Antibody Screen Crossmatch 03/13/21 03/13/21 03/13/21 21:05 21:25 21:25 WBC RBC Hgb Hct MCV MCH MCHC RDW Std Deviation RDW Coeff of Marga Plt Count MPV Immature Gran % (Auto) Neut % (Auto) Lymph % (Auto) Duval % (Auto) Eos % (Auto) Baso % (Auto) Absolute Neuts (auto) Absolute Lymphs (auto) Nucleated RBC % Differential Comment Diff Path Review Hypochromasia Anisocytosis Microcytosis Macrocytosis Acanthocytes (Spur) PT INR Sodium Potassium Chloride Carbon Dioxide Anion Gap BUN Creatinine Estim Creat Clear Calc Est GFR (MDRD) Af Amer Est GFR (MDRD) Non-Af BUN/Creatinine Ratio Glucose Calcium Total Bilirubin AST ALT Alkaline Phosphatase Total Protein Albumin Globulin Albumin/Globulin Ratio POC Glucose Blood Type Cancelled AB POSITIVE Antibody Screen Cancelled NEGATIVE Crossmatch See Detail 03/13/21 03/13/21 03/14/21 21:25 21:25 05:00 WBC 7.9 RBC 3.22 L Hgb 6.3 L Hct 22.1 L MCV 68.6 L D MCH 19.6 L MCHC 28.5 L D RDW Std Deviation 68.7 H RDW Coeff of Marga 30.5 H Plt Count 435 MPV 9.3 Immature Gran % (Auto) 0.400 Neut % (Auto) 59.8 Lymph % (Auto) 27.9 Duval % (Auto) 9.4 Eos % (Auto) 1.6 Baso % (Auto) 0.9 Absolute Neuts (auto) 4.7 Absolute Lymphs (auto) 2.21 Nucleated RBC % 1.5 Differential Comment SCANNED Diff Path Review Hypochromasia 2+ Anisocytosis 2+ Microcytosis 2+ Macrocytosis RARE Acanthocytes (Spur) 2+ PT INR Sodium Potassium Chloride Carbon Dioxide Anion Gap BUN Creatinine Estim Creat Clear Calc Est GFR (MDRD) Af Amer Est GFR (MDRD) Non-Af BUN/Creatinine Ratio Glucose Calcium Total Bilirubin AST ALT Alkaline Phosphatase Total Protein Albumin Globulin Albumin/Globulin Ratio POC Glucose Blood Type Antibody Screen Crossmatch See Detail See Detail 03/14/21 03/14/21 03/14/21 05:00 11:49 14:15 WBC 9.7 RBC 4.05 L Hgb 8.5 L Hct 29.0 L MCV 71.6 L MCH 21.0 L MCHC 29.3 L RDW Std Deviation 70.4 H RDW Coeff of Marga 29.2 H Plt Count 413 MPV 9.4 Immature Gran % (Auto) 1.100 H Neut % (Auto) 77.3 H Lymph % (Auto) 11.6 L Duval % (Auto) 8.5 Eos % (Auto) 0.8 Baso % (Auto) 0.7 Absolute Neuts (auto) 7.5 Absolute Lymphs (auto) 1.13 Nucleated RBC % 2.2 Differential Comment Diff Path Review Hypochromasia Anisocytosis 2+ Microcytosis Macrocytosis Acanthocytes (Spur) 2+ PT INR Sodium 135 L Potassium 3.8 Chloride 103 Carbon Dioxide 25.0 Anion Gap 7 BUN 40 H Creatinine 1.94 H Estim Creat Clear Calc 18.90 Est GFR (MDRD) Af Amer 32 L Est GFR (MDRD) Non-Af 27 L BUN/Creatinine Ratio 20.6 H Glucose 126 H Calcium 8.4 L Total Bilirubin AST ALT Alkaline Phosphatase Total Protein Albumin Globulin Albumin/Globulin Ratio POC Glucose 134 H Blood Type Antibody Screen Crossmatch Micro: Microbiology 03/13/21 21:10 Interface Orders SARS-CoV-2 Antigen (Rapid) - Final 03/13/21 21:10 Stool Stool Occult Blood (ERIN) - Final Occult Blood Positive Physical Exam Const alert, oriented x3 and no apparent distress Constitutional Narrative: pale HEENT normocephalic and moist oral mucous membranes Head and Scalp: normocephalic Eyes PERRL, EOMs intact bilaterally and conjunctivae normal Neck supple and no JVD Lymph Lymphatic: no lymphadenopathy noted Resp normal respiratory effort and clear to auscultation bilaterally Auscultation: Negative for crackles, rales, rhonchi or wheezes Cardio regular rate, regular rhythm, S1 normal heart sound, S2 normal heart sound and no murmurs GI soft to palpation, non-tender and non-distended; Negative for hepatosplenomegaly Extremity no clubbing, cyanosis or edema Skin no rashes or lesions noted Neuro no focal motor deficits and no sensory deficits noted Psych affect normal Assessment & Plan Assessment/Plan (1) Acute GI bleeding: (2) Status post amputation of toe: (3) Diabetes: QUALIFIERS: Diabetes mellitus type: type 2 Diabetes mellitus complication status: with kidney complications Diabetes mellitus complication detail: with chronic kidney disease Chronic kidney disease stage: stage 3 (moderate) Chronic kidney disease stage 3 subtype: stage 3b (GFR 30-44) Diabetes mellitus intermediate insulin use: without intermediate use Qualified Code(s): E11.22 - Type 2 diabetes mellitus with diabetic chronic kidney disease; N18.32 - Chronic kidney disease, stage 3b (4) Anemia: QUALIFIERS: Anemia type: other cause Other causes of anemia: acute posthemorrhagic Qualified Code(s): D62 - Acute posthemorrhagic anemia (5) High cholesterol: (6) PAD (peripheral artery disease): (7) CHF (congestive heart failure): QUALIFIERS: Heart failure type: diastolic Heart failure chronicity: chronic Qualified Code(s): I50.32 - Chronic diastolic (congestive) heart failure PLAN: 1. Anemia secondary to acute GI bleed -She had a normal hemoglobin until February 17, 2020 when she was 9.6 and since then she has trended down until she was 4.2 on March 13, 2021 -Status post 4 units PRBCs -Recheck hemoglobin this evening -We will check fecal occult stool as she told me that she did not have any blood in her stools but she told the admitting provider that she had some red tinge to her stools -We will hold her Eliquis secondary to the GI bleed, she will have an outpatient procedure next week to hopefully recannulize her femoral bypass -Continue with PPI twice daily 2. A. fib/chronic diastolic CHF/PAD/HTN/HLD -Continue with amiodarone but will hold her aspirin and her Plavix -Continue with Lipitor but hold Lasix secondary to renal function -Continue with metoprolol -Plan for outpatient procedure next week as long as her hemoglobin stabilizes can plan for discharge versus transfer 3. DM2 -Continue with glipizide -We will continue to monitor blood sugars with sliding scale insulin and Accu-Cheks AC at bedtime DVT: SCDs Visit Charges Inpatient E&M: 83290 Subs Hosp L2
[2021-03-14] MEDS: 0.9% Saline Lock 10 ML Syringe IV (20:16)
[2021-03-14 21:19] LABS: Hemoglobin 8.5 g/dL (12.0-15.0)
[2021-03-14] MEDS: Insulin Lispro 100 UNIT/ML INSULN.PEN SC (21:42)
[2021-03-14] MEDS: Atorvastatin Calcium 80 MG Tablet PO (21:42)
[2021-03-14 22:21] LABS: Bedside Glucose 162 mg/dL (70-110)
[2021-03-15] VITALS (8 sets, daily range): BP systolic 118–155; BP diastolic 45–62; PULSE 54–67; RESP 12–16; TEMP 36.6–36.9; O2SAT 94–98
[2021-03-15 06:50] LABS: Bedside Glucose 129 mg/dL (70-110)
[2021-03-15 07:02] LABS: Absolute Lymphocyte Count 1.46 X10^3/uL (0.83-4.51); Absolute Neutrophil Count 6.5 X10^3/uL (2.0-7.7); Basophil# 0.05 X10^3/uL; Basophil% 0.6 % (0-1); Eosinophil# 0.14 X10^3/uL; Eosinophils% 1.6 % (0-5); Hematocrit 27.7 % (37-47); Hemoglobin 8.3 g/dL (12.0-15.0); Lymphocyte # 1.46 X10^3/ul (0.83-4.51); Lymphocyte % 16.3 % (19-41); Mean Corpuscular Volume 69.9 fL (81-99); Mean Platelet Vol. 9.4 fl (6.2-12.0); Monocyte# 0.73 X10^3/uL; Monocyte% 8.2 % (0-10); NRBC Flagged by Analyzer 1.6 % (0-5); Neutrophil # 6.49 X10^3/uL (2.7-7.7); Neutrophil % 72.6 % (47-70); POSITIVE MORPHOLOGY YES; Platelet Count 372 K/mm3 (150-450); RBC Distribution Width CV 28.9 % (11.6-14.6); Red Blood Count 3.96 M/mm3 (4.2-5.4); White Blood Count 8.9 K/mm3 (4.4-11.0)
[2021-03-15 07:06] LABS: Differential Indicated SCAN CRITERIA MET
[2021-03-15 07:33] LABS: Acanthocytes 2+; Anisocytosis 2+; Target Cells RARE; Tear Drop Cell RARE
[2021-03-15 07:52] LABS: Anion Gap 6 (5-15); BUN 32 mg/dL (7-18); BUN/Creat Ratio 20.3 RATIO (10-20); Calcium,Total 8.6 mg/dL (8.5-10.1); Chloride 108 mmol/L (98-107); Creatinine, Serum 1.58 mg/dL (0.55-1.02); EST Glomerular Filtration Rate 34 mL/min (>60); Est Glom Filt Rate - Afr Amer 41 mL/min (>60); Estimated Creatinine Clearance 23.21 ml/min; Glucose 120 mg/dL (74-106); Potassium 3.9 mmol/L (3.5-5.1); Sodium Level 136 mmol/L (136-145)
[2021-03-15] MEDS: glipiZIDE 5 MG Tablet PO (09:24)
[2021-03-15] MEDS: Metoprolol Tartrate 50 MG Tablet PO (09:25)
[2021-03-15] MEDS: Amiodarone 200 MG Tablet PO (09:25)
[2021-03-15] MEDS: 0.9% Saline Lock 10 ML Syringe IV (09:46)
[2021-03-15 12:16] LABS: Bedside Glucose 159 mg/dL (70-110)
[2021-03-15] MEDS: Insulin Lispro 100 UNIT/ML INSULN.PEN SC (12:16)
[2021-03-15] MEDS: Ferrous Sulfate 325 MG Tablet PO (12:37)
[2021-03-15 13:32] LABS: Hematocrit 28.8 % (37-47); Hemoglobin 8.6 g/dL (12.0-15.0)
--- NOTE | 2021-03-15 13:46 | PCM.DC ---
Discharge Instructions Diet Discharge Diet: Carb Control Diet Activity Discharge Activity: Return to Normal Activity Dressing / Incision Call your doctor if you observe: Fever of 101 or Higher, Shortness of breath, Dizziness, Fainting spells, Swelling in the ankles, Chest pain, Increased palpitations (irregular heartbeat) and - (Bloody stool) Follow Up Care Test Results: Test results from this visit will be discussed in further detail at your follow-up appointment, if applicable. Discharge Plan Admission Admit Date/Time: 03/13/21 23:11 Attending Provider: Colt Dickerson Primary Care Provider: Theo Hubbard Discharge Orders/Prescriptions Prescriptions: New ferrous sulfate 325 mg (65 mg iron) Tablet 325 mg PO 1200,1700 Qty: 60 RF: 0 ascorbic acid (vitamin C) [Vitamin C] 500 mg tablet 500 mg PO BID Qty: 60 RF: 0 pantoprazole [Protonix] 40 mg tablet,delayed release (DR/EC) 40 mg PO DAILY Qty: 30 RF: 0 Continued furosemide [Lasix] 20 mg tablet 20 mg PO DAILY RF: 0 atorvastatin 80 mg tablet 80 mg PO DAILY RF: 0 aspirin [Adult Low Dose Aspirin] 81 mg tablet,delayed release (DR/EC) 81 mg PO DAILY RF: 0 glipizide 5 mg tablet 5 mg PO DAILY RF: 0 metoprolol tartrate 50 mg tablet 50 mg PO DAILY RF: 0 amiodarone 200 mg tablet 200 mg DAILY RF: 0 Held apixaban 5 mg tablet 5 mg PO BID RF: 0 Hold Instructions: Resume on 03/24/21. Hold until after your vascular intervention Referrals / Follow Up: Theo Hubbard MD [Primary Care Provider] - 03/23/21 11:00 am Disposition Disposition (needs filled in before D/C Order can be placed): Home, self care
--- NOTE | 2021-03-15 14:47 | CASEMGMT ---
Per therapy, pt would benefit from PT at discharge. Pt is agreeable at this time and states would like [facility] as she has had them in the recent past and she has [facility]. Call to John at [facility] and he states they can accept pt at this time. Referral faxed to [facility] and they are aware pt to discharge today. John states they will do a start of care tomorrow. Pt also states will be going to stay with daughter in [place] and John aware as well as it was marked on facesheet regarding same. Pt declined need for SN at this time. Pt voices no further questions/concerns/needs. Jeremy CORBETT CM
--- NOTE | 2021-03-15 15:02 | PHA.DC.MC ---
Pharmacy Service has performed discharge medication reconciliation and counseling for this patient. 1. FERROUS SULFATE 325MG PO BID 2. ASCORBIC ACID 500MG PO BID 3. PANTOPRAZOLE 40MG PO DAILY The patient's discharge medication list was reviewed for discrepancies and discrepancies were resolved. Home Medications apixaban 5 mg PO BID 02/17/20 aspirin 81 mg tablet,delayed release 81 mg PO DAILY 05/11/20 atorvastatin 80 mg tablet 80 mg PO DAILY 05/11/20 furosemide 20 mg tablet 20 mg PO DAILY 05/11/20 glipizide 5 mg tablet 5 mg PO DAILY 05/11/20 metoprolol tartrate 50 mg tablet 50 mg PO DAILY tab 05/11/20 amiodarone 200 mg DAILY 03/13/21 ascorbic acid (vitamin C) [Vitamin C] 500 mg PO BID #60 tab 03/15/21 ferrous sulfate 325 mg PO 1200,1700 #60 tab 03/15/21 pantoprazole [Protonix] 40 mg PO DAILY #30 tab 03/15/21 The patient was counseled on the following discharge medications and changes in medications for homegoing were reviewed. The Reason for Use, instructions for use, and potential side effects were reviewed for all new medications. The patient's questions regarding all of their medications were answered. The patient was able to verbally demonstrate an understanding of their discharge medications.
--- NOTE | 2021-03-15 15:14 | PCM.DC.SUM ---
Providers Date of Admission: 03/13/21 Primary Care Physician: Dr. Theo Hubbard MD Reason For Visit: GASTROINTESTINAL BLEED Diagnosis Discharge Diagnosis (1) Acute GI bleeding: Status: Acute Code(s): K92.2 - Gastrointestinal hemorrhage, unspecified (2) Diabetes: Status: Acute Code(s): E11.9 - Type 2 diabetes mellitus without complications Qualifiers: Chronic kidney disease stage: stage 3 (moderate) Chronic kidney disease stage 3 subtype: stage 3b (GFR 30-44) Diabetes mellitus complication detail: with chronic kidney disease Diabetes mellitus complication status: with kidney complications Diabetes mellitus correction insulin use: without correction use Diabetes mellitus type: type 2 Qualified Code(s): E11.22 - Type 2 diabetes mellitus with diabetic chronic kidney disease; N18.32 - Chronic kidney disease, stage 3b (3) Anemia: Status: Acute Code(s): D64.9 - Anemia, unspecified Qualifiers: Anemia type: other cause Other causes of anemia: acute posthemorrhagic Qualified Code(s): D62 - Acute posthemorrhagic anemia (4) High cholesterol: Status: Acute Code(s): E78.00 - Pure hypercholesterolemia, unspecified (5) PAD (peripheral artery disease): Status: Acute Code(s): I73.9 - Peripheral vascular disease, unspecified (6) CHF (congestive heart failure): Status: Acute Code(s): I50.9 - Heart failure, unspecified Qualifiers: Heart failure chronicity: chronic Heart failure type: diastolic Qualified Code(s): I50.32 - Chronic diastolic (congestive) heart failure (7) PAULINA (acute kidney injury): Status: Resolved Code(s): N17.9 - Acute kidney failure, unspecified Medications at Discharge Home Medications apixaban 5 mg PO BID 02/17/20 aspirin 81 mg tablet,delayed release 81 mg PO DAILY 05/11/20 atorvastatin 80 mg tablet 80 mg PO DAILY 05/11/20 furosemide 20 mg tablet 20 mg PO DAILY 05/11/20 glipizide 5 mg tablet 5 mg PO DAILY 05/11/20 metoprolol tartrate 50 mg tablet 50 mg PO DAILY tab 05/11/20 amiodarone 200 mg DAILY 03/13/21 ascorbic acid (vitamin C) [Vitamin C] 500 mg PO BID #60 tab 03/15/21 ferrous sulfate 325 mg PO 1200,1700 #60 tab 03/15/21 pantoprazole [Protonix] 40 mg PO DAILY #30 tab 03/15/21 Hospital Course Operations None Procedures None Summary of Care Provided Minutes Spent on Discharge: 35 Hospital Course: Per HPI: REBA STEPHENS, is a 80 F who presents to the emergency room after having an outpatient hemoglobin of 4.? The patient has a significant past medical history of peripheral vascular disease for which she takes Eliquis routinely.? Over the past few days she has noticed some red tinge to her stool.? At this time she denies chest pain or shortness of breath, fever or chills and denies nausea.? 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 She will be admitted to the hospital for blood transfusion. Hospital Course: 1. Anemia secondary to acute on chronic GI bleed/likely iron deficiency [id number] female presented from home because of abnormal labs. She is getting worked up to have a recannulization of her left femoral bypass and was found to be severely anemic with a hemoglobin of 4.2. She was sent into the hospital for transfusions. She was transfused 4 units PRBCs and has stabilized with a hemoglobin of 8.6 today up from 8.3 this morning. It also appears that she is likely been bleeding since about January of last year and states that at the time she was supposed to have a colonoscopy however she was having a CHF exacerbation at the time so the test was delayed and then never followed back up with general surgery. It also appears based on lab work that she is likely iron deficient therefore after the transfusions she was started on iron replacement. Since she will be on a PPI for about the next month I do recommend that she also take a vitamin C at the same time that she takes her iron supplementation. I recommended she follow-up with her PCP next week and have referral to surgery for an EGD and a colonoscopy after her revascularization procedure next week in [place]. I discussed with her and her daughter the risks and benefits of discharge today and possible outcomes, they expressed understanding and are comfortable with going home today with outpatient follow-up. I discussed with them that if she is to have recurrent GI bleeding that she is to come back into the hospital. At this time she will remain off of her Eliquis until she has had repair of her left femoral bypass by vascular surgery. 2. A. fib, chronic diastolic CHF, peripheral artery disease, hypertension, hyperlipidemia, type 2 diabetes her chronic medical conditions which complicate her care. Her home medications were continued Physical Exam Const alert, oriented x3 and no apparent distress HEENT normocephalic and moist oral mucous membranes Eyes PERRL, EOMs intact bilaterally and conjunctivae normal Neck supple and no JVD Lymph Lymphatic: no lymphadenopathy noted Resp normal respiratory effort and clear to auscultation bilaterally Auscultation: Negative for crackles, rales, rhonchi or wheezes Cardio regular rate, regular rhythm, S1 normal heart sound, S2 normal heart sound and no murmurs GI soft to palpation, non-tender and non-distended; Negative for hepatosplenomegaly Extremity no clubbing, cyanosis or edema Skin no rashes or lesions noted Neuro no focal motor deficits and no sensory deficits noted Psych affect normal ABG / Lab / Microbiology Data Result Diagrams: 03/15/21 13:20 03/15/21 06:30 Laboratory: Laboratory Results - last 24 hr 03/14/21 03/14/21 03/15/21 21:00 21:32 06:30 WBC 8.9 RBC 3.96 L Hgb 8.5 L 8.3 L Hct 29.0 L 27.7 L MCV 69.9 L MCH 21.0 L MCHC 30.0 L RDW Std Deviation 69.0 H RDW Coeff of Marga 28.9 H Plt Count 372 MPV 9.4 Immature Gran % (Auto) 0.700 Neut % (Auto) 72.6 H Lymph % (Auto) 16.3 L Gentry % (Auto) 8.2 Eos % (Auto) 1.6 Baso % (Auto) 0.6 Absolute Neuts (auto) 6.5 Absolute Lymphs (auto) 1.46 Nucleated RBC % 1.6 Anisocytosis 2+ Target Cells RARE Tear Drop Cells RARE Acanthocytes (Spur) 2+ Sodium Potassium Chloride Carbon Dioxide Anion Gap BUN Creatinine Estim Creat Clear Calc Est GFR (MDRD) Af Amer Est GFR (MDRD) Non-Af BUN/Creatinine Ratio Glucose Calcium POC Glucose 162 H 03/15/21 03/15/21 03/15/21 06:30 06:40 12:11 WBC RBC Hgb Hct MCV MCH MCHC RDW Std Deviation RDW Coeff of Marga Plt Count MPV Immature Gran % (Auto) Neut % (Auto) Lymph % (Auto) Gentry % (Auto) Eos % (Auto) Baso % (Auto) Absolute Neuts (auto) Absolute Lymphs (auto) Nucleated RBC % Anisocytosis Target Cells Tear Drop Cells Acanthocytes (Spur) Sodium 136 Potassium 3.9 Chloride 108 H Carbon Dioxide 22.0 Anion Gap 6 BUN 32 H Creatinine 1.58 H Estim Creat Clear Calc 23.21 Est GFR (MDRD) Af Amer 41 L Est GFR (MDRD) Non-Af 34 L BUN/Creatinine Ratio 20.3 H Glucose 120 H Calcium 8.6 POC Glucose 129 H 159 H 03/15/21 13:20 WBC RBC Hgb 8.6 L Hct 28.8 L MCV MCH MCHC RDW Std Deviation RDW Coeff of Marga Plt Count MPV Immature Gran % (Auto) Neut % (Auto) Lymph % (Auto) Gentry % (Auto) Eos % (Auto) Baso % (Auto) Absolute Neuts (auto) Absolute Lymphs (auto) Nucleated RBC % Anisocytosis Target Cells Tear Drop Cells Acanthocytes (Spur) Sodium Potassium Chloride Carbon Dioxide Anion Gap BUN Creatinine Estim Creat Clear Calc Est GFR (MDRD) Af Amer Est GFR (MDRD) Non-Af BUN/Creatinine Ratio Glucose Calcium POC Glucose Microbiology: Microbiology 03/13/21 21:10 Interface Orders SARS-CoV-2 Antigen (Rapid) - Final 03/13/21 21:10 Stool Stool Occult Blood (ERIN) - Final Occult Blood Positive D/C Instructions Discharge Diet: Carb Control Diet Discharge Activity: Return to Normal Activity Call your doctor if you observe: Fever of 101 or Higher, Shortness of breath, Dizziness, Fainting spells, Swelling in the ankles, Chest pain, Increased palpitations (irregular heartbeat) and - (Bloody stool) Meaningful Use Info Meaningful Use Diagnoses (Choose all that apply): None applicable Discharge Plan Admission Admit Date/Time: 03/13/21 23:11 Attending Provider: Colt Dickerson Primary Care Provider: Theo Hubbard Discharge Orders/Prescriptions Prescriptions: New ferrous sulfate 325 mg (65 mg iron) Tablet 325 mg PO 1200,1700 Qty: 60 RF: 0 ascorbic acid (vitamin C) [Vitamin C] 500 mg tablet 500 mg PO BID Qty: 60 RF: 0 pantoprazole [Protonix] 40 mg tablet,delayed release (DR/EC) 40 mg PO DAILY Qty: 30 RF: 0 Continued furosemide [Lasix] 20 mg tablet 20 mg PO DAILY RF: 0 atorvastatin 80 mg tablet 80 mg PO DAILY RF: 0 aspirin [Adult Low Dose Aspirin] 81 mg tablet,delayed release (DR/EC) 81 mg PO DAILY RF: 0 glipizide 5 mg tablet 5 mg PO DAILY RF: 0 metoprolol tartrate 50 mg tablet 50 mg PO DAILY RF: 0 amiodarone 200 mg tablet 200 mg DAILY RF: 0 Held apixaban 5 mg tablet 5 mg PO BID RF: 0 Hold Instructions: Resume on 03/24/21. Hold until after your vascular intervention Referrals / Follow Up: Theo Hubbard MD [Primary Care Provider] - 03/23/21 11:00 am Disposition Disposition (needs filled in before D/C Order can be placed): Home, self care Visit Charges Inpatient E&M: 86505 [facility]
--- NOTE | 2021-03-16 15:13 | CASEMGMT ---
CHELLE JAIN Discharge Follow-Up Phone Call. [place]: 10 Strata: 3 Discharge Date: 03/15/21 Adm Dx: GIB Call to pt to inquire about how she has been doing since being discharged from the hospital. Pt's daughter, Hermila, answered and states pt is napping at this time and would answer any questions. Hermila states pt is Happy to be home and is doing well. She said pt did have a small amt of bright red blood on the TP this morning when she wiped but has not had any further bleeding. She stated pt did not have a BM, but they plan to use BSC from now on to monitor for any further bleeding more closely. They are holding the Eliquis as instructed. They did get the [address] [facility] prior to going home and Hermila states she has re-done pt's med box w/all the new changes. She states they were at [facility] this morning for pre-admission testing and pt's Hgb was 9.2. Pt has a CT scan scheduled for tomorrow to [place] for vascular surgery. She states they may admit pt at [facility] a day early prior to her scheduled surgery next week to monitor for any further issues prior to going to OR. Pt states she rescheduled f/u PCP appt w/Dr Hubbard for 03/22 d/t pt will be @ [facility] 03/23. CHELLE JAIN inquired if [facility] has been out to see pt today. Hermila states, Mom was kind of mixed up when they talked to her about HHC. She does not want HHC until after she comes from having her leg surgery. Hermila states she did notify [facility] of same and they are holding HHC until pt returns home from surgery. Hermial denies having any questions about the discharge instructions and thanked CHELLE JAIN for calling. Estuardo WOODARD RN, CM
== END 2021-03-15 15:50 | disposition home or self-care (01) | DRG 812 ==
LOC: ED 23:07 → ICU 03-14 06:34 → PCU 03-15 11:12 → ICU 03-15 12:59 → PCU 03-15 12:59
PROVIDERS: Admitting Provider Family Medicine; Emergency Provider Emergency Medicine; PCP Family Medicine; Visit Provider Family Medicine
DX: D62 Acute posthemorrhagic anemia (principal); K92.2 Gastrointestinal hemorrhage, unspecified; I13.0 Hypertensive heart and chronic kidney disease with heart failure and stage 1 through stage 4 chronic kidney disease, or unspecified chronic kidney disease; I50.32 Chronic diastolic (congestive) heart failure; N17.9 Acute kidney failure, unspecified; E11.51 Type 2 diabetes mellitus with diabetic peripheral angiopathy without gangrene; E11.22 Type 2 diabetes mellitus with diabetic chronic kidney disease; N18.32 Chronic kidney disease, stage 3b; I48.91 Unspecified atrial fibrillation; Z20.822 Contact with and (suspected) exposure to COVID-19; I25.10 Atherosclerotic heart disease of native coronary artery without angina pectoris; E78.5 Hyperlipidemia, unspecified; F17.200 Nicotine dependence, unspecified, uncomplicated; Z79.01 Long term (current) use of anticoagulants; Z79.84 Long term (current) use of oral hypoglycemic drugs; Z79.82 Long term (current) use of aspirin; Z79.899 Other long term (current) drug therapy; Z89.429 Acquired absence of other toe(s), unspecified side
CPT/HCPCS: 36415; 80048; 80053; 82274; 82962; 85014; 85018; 85025; 85610; 86850; 86900; 86901; 86920; 86922; 87426; 97161; 97165; 99284; P9016; P9040; A4216

== ENCOUNTER → 2021-04-11 09:30 | Outpatient (CLI) | payer MEDICARE, SELFPAY ==
[2021-03-14 00:06] VITALS: BMI 27.2
[2021-04-11 12:40] LABS: Absolute Lymphocyte Count 2.24 X10^3/uL (0.83-4.51); Absolute Neutrophil Count 5.2 X10^3/uL (2.0-7.7); Basophil# 0.08 X10^3/uL; Basophil% 0.9 % (0-1); Eosinophil# 0.19 X10^3/uL; Eosinophils% 2.2 % (0-5); Hematocrit 35.4 % (37-47); Hemoglobin 10.3 g/dL (12.0-15.0); Lymphocyte # 2.24 X10^3/ul (0.83-4.51); Lymphocyte % 25.8 % (19-41); Mean Corp Hgb Conc 29.1 g/dL (32-36); Mean Corpuscular Hgb 24.6 pg (27.0-32.0); Mean Corpuscular Volume 84.5 fL (81-99); Mean Platelet Vol. 9.3 fl (6.2-12.0); Monocyte# 0.95 X10^3/uL; NRBC Flagged by Analyzer 0 % (0-5); Neutrophil # 5.18 X10^3/uL (2.7-7.7); Neutrophil % 59.8 % (47-70); POSITIVE MORPHOLOGY YES; Platelet Count 556 K/mm3 (150-450); Red Blood Count 4.19 M/mm3 (4.2-5.4); White Blood Count 8.7 K/mm3 (4.4-11.0)
[2021-04-11 12:52] LABS: Differential Indicated SCAN CRITERIA MET
== END ==
PROVIDERS: PCP Family Medicine; Referring Provider Family Medicine; Visit Provider Family Medicine
DX: D64.9 Anemia, unspecified (principal)
CPT/HCPCS: 36415; 85025

== ENCOUNTER 2021-04-28 16:41 | Emergency (ER) | payer MEDICARE, SELFPAY ==
[2021-03-14 00:06] VITALS: BMI 27.2
[2021-04-28 16:42] VITALS: BP 143/85; PULSE 73; RESP 18; TEMP 36.4; O2SAT 97; BMI 26.9
--- NOTE | 2021-04-28 17:31 | EX.ED.DYSGE1 ---
HPI History of Present Illness Chief Complaint: Nosebleed Informant: patient Narrative Narrative: Patient is a 80-year-old female with a past medical history of CAD, A. fib on Eliquis who presents to the emerge department for bleeding from right nostril. It started around 11 AM this morning. She has had nosebleeds before in the past. She denies any digital trauma. She states that she does typically use Afrin daily but has not over the past 2 days. She denies any symptoms of anemia including any lightheadedness, chest pain, shortness of breath or syncope. She denies any nausea or vomiting. She tried using Afrin as well as compressing the area today which only helped temporarily but the bleeding returned. [facility] Medical History (Updated 04/28/21 @ 18:[address] Tristan Newton ) Anemia Atrial fibrillation with RVR CHF (congestive heart failure) Colles' fracture of left radius Congestive heart failure (CHF) Coronary artery disease Dehydration Diabetes Diarrhea High cholesterol PAD (peripheral artery disease) Stage 3b chronic kidney disease Wrist fracture, left Home Medications apixaban 5 mg PO BID 02/17/20 [History Last Taken 02/17/20] aspirin 81 mg tablet,delayed release 81 mg PO DAILY 05/11/20 [History Last Taken Unknown] atorvastatin 80 mg tablet 80 mg PO DAILY 05/11/20 [History Last Taken Unknown] furosemide 20 mg tablet 20 mg PO DAILY 05/11/20 [History Last Taken Unknown] glipizide 5 mg tablet 5 mg PO BID 05/11/20 [History Last Taken Unknown] metoprolol tartrate 50 mg tablet 50 mg PO DAILY tab 05/11/20 [History Last Taken Unknown] amiodarone 200 mg DAILY 03/13/21 [History Last Taken Unknown] ascorbic acid (vitamin C) [Vitamin C] 500 mg PO BID #60 tab 03/15/21 [Rx Last Taken Unknown] ferrous sulfate 325 mg PO 1200,1700 #60 tab 03/15/21 [Rx Last Taken Unknown] pantoprazole [Protonix] 40 mg PO DAILY #30 tab 03/15/21 [Rx Last Taken Unknown] sulfamethoxazole 500 mg PO DAILY 04/28/21 [History Last Taken Unknown] Allergy/AdvReac Type Severity Reaction Status Date / Time No Known Allergies Allergy Verified 04/28/21 17:45 Surgical History History of surgery on left wrist S/P arteriogram of extremity S/P cataract extraction S/P right heart catheterization 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 Social History Smoking Status: Former smoker alcohol intake: former ROS ROS ED Constitutional Constitutional ED: Denies chills or fever(s) Eyes Eyes: Denies change in vision ENT ENT ED: Reports other Details: Epistaxis ; Denies rhinorrhea Cardiovascular Cardiovascular: Denies chest pain or palpitations Respiratory/Chest Respiratory/Chest: Denies cough, dyspnea or dyspnea on exertion Gastrointestinal Gastrointestinal: Denies abdominal pain, diarrhea, nausea or vomiting Musculoskeletal Musculoskeletal: Denies back pain or neck pain Integumentary Reports other Details: Sunburn to legs Neurologic Neurologic: Denies dizziness, headache(s) or weakness EXAM Physical Exam Const Vital Signs: 04/28/21 16:42 Temperature 97.6 F L Temperature Source Temporal Pulse Rate 73 Respiratory Rate 18 Blood Pressure 143/85 H Blood Pressure Mean 104 Pulse Ox 97 Oxygen Delivery Method Room Air Positive well nourished and well developed General Appearance ED: well developed and NAD HEENT Reports normocephalic, head/scalp atraumatic and moist mucous membranes HEENT Narrative: Right nostril appears to have cut on nasal septum. Bright red blood present. No pulsatile bleeding present. No foreign body appreciated. Septal perforation present. Eyes PERRL and EOMs intact bilaterally Neck supple Resp normal respiratory effort and clear to auscultation bilaterally Auscultation: Negative for rales, rhonchi or wheezes Cardio regular rate, regular rhythm and no murmurs Extremity normal to inspection General Extremety ED: Negative for edema or tenderness General Extremity: Negative for edema Neuro CN's II-XII intact bilaterally and no sensory deficits noted Sensorium / Orientation: alert Motor Exam: strength 5/5 throughout Psych mental status grossly normal MDM MDM MDM Narrative Medical decision making narrative: Patient presents to the emergency department for right-sided epistaxis. She denies any symptoms of anemia with this. She is on Eliquis. Upon arrival to the ED vital signs within normal limits. Slow venous ooze on examination. There was a small area of bleeding which I did attempt to cauterize with silver nitrate. Patient still had a very slow ooze present afterward. I did attempt to pass a Rhino Rocket but she did not tolerate this at all and was having significant pain. Because of the bleeding was so slow I was able to pack it with a Surgicel which gave her significant relief. She is feeling much better this time. No rebleeding. She is given ENT referral to call Saturday morning for evaluation. Patient was not previously aware of her septal perforation. Discharged home in stable condition. All questions were answered. Discharge Plan Triage Chief Complaint: Nosebleed ED Provider: Tristan Newton Dx/Rx/DC Orders Clinical Impression: Epistaxis Instructions: Nosebleed Prescriptions: No Action furosemide [Lasix] 20 mg tablet 20 mg PO DAILY RF: 0 atorvastatin 80 mg tablet 80 mg PO DAILY RF: 0 aspirin [Adult Low Dose Aspirin] 81 mg tablet,delayed release (DR/EC) 81 mg PO DAILY RF: 0 glipizide 5 mg tablet 5 mg PO BID RF: 0 apixaban 5 mg tablet 5 mg PO BID RF: 0 Hold Instructions: Resume on 03/24/21. Hold until after your vascular intervention metoprolol tartrate 50 mg tablet 50 mg PO DAILY RF: 0 amiodarone 200 mg tablet 200 mg DAILY RF: 0 ferrous sulfate 325 mg (65 mg iron) Tablet 325 mg PO 1200,1700 Qty: 60 RF: 0 ascorbic acid (vitamin C) [Vitamin C] 500 mg tablet 500 mg PO BID Qty: 60 RF: 0 pantoprazole [Protonix] 40 mg tablet,delayed release (DR/EC) 40 mg PO DAILY Qty: 30 RF: 0 sulfamethoxazole 500 mg Tablet 500 mg PO DAILY RF: 0 Primary Care Provider: Theo Hubbard Referrals: Joey Brown MD [STAFF PHYSICIAN] - As Needed Theo Hubbard MD [Primary Care Provider] - Disposition Disposition: Home, Self Care Discharge Date/Time: 04/28/21 20:10
[2021-04-28] MEDS: Silver Nitrate (BKC) 1 EACH TOPICAL (17:45)
[2021-04-28] MEDS: Lidocaine 4% 50 ML Bottle TOPICAL (17:45)
== END 2021-04-28 20:10 | disposition home or self-care (01) ==
PROVIDERS: Emergency Provider Emergency Medicine; PCP Family Medicine
DX: R04.0 Epistaxis (principal); J34.89 Other specified disorders of nose and nasal sinuses; I48.91 Unspecified atrial fibrillation; I25.10 Atherosclerotic heart disease of native coronary artery without angina pectoris; I13.0 Hypertensive heart and chronic kidney disease with heart failure and stage 1 through stage 4 chronic kidney disease, or unspecified chronic kidney disease; I50.9 Heart failure, unspecified; E11.22 Type 2 diabetes mellitus with diabetic chronic kidney disease; N18.32 Chronic kidney disease, stage 3b; E11.51 Type 2 diabetes mellitus with diabetic peripheral angiopathy without gangrene; E78.00 Pure hypercholesterolemia, unspecified; Z79.01 Long term (current) use of anticoagulants; Z79.82 Long term (current) use of aspirin; Z79.84 Long term (current) use of oral hypoglycemic drugs; Z87.891 Personal history of nicotine dependence
CPT/HCPCS: 30901; 99282

== ENCOUNTER → 2021-06-15 10:52 | Outpatient (CLI) | payer MEDICARE, SELFPAY ==
[2021-06-15 12:37] LABS: Hematocrit 37.4 % (37-47); Hemoglobin 11.7 g/dL (12.0-15.0); Mean Corp Hgb Conc 31.3 g/dL (32-36); Mean Corpuscular Hgb 28.3 pg (27.0-32.0); Mean Corpuscular Volume 90.6 fL (81-99); Platelet Count 302 K/mm3 (150-450); RBC Distribution Width SD 49.9 fl (35.1-43.9); Red Blood Count 4.13 M/mm3 (4.2-5.4); White Blood Count 6.8 K/mm3 (4.4-11.0)
== END ==
PROVIDERS: PCP Family Medicine
DX: I25.10 Atherosclerotic heart disease of native coronary artery without angina pectoris (principal)
CPT/HCPCS: 36415; 85027

== ENCOUNTER → 2021-07-26 14:29 | Outpatient (CLI) | payer MEDICARE, SELFPAY ==
[2021-07-26 19:01] LABS: Anion Gap 8 (5-15); BUN 30 mg/dL (7-18); BUN/Creat Ratio 18.6 RATIO (10-20); Calcium,Total 9.2 mg/dL (8.5-10.1); Chloride 101 mmol/L (98-107); Cholesterol 122 mg/dL (200); Creatinine, Serum 1.61 mg/dL (0.55-1.02); EST Glomerular Filtration Rate 33 mL/min (>60); Est Glom Filt Rate - Afr Amer 40 mL/min (>60); Glucose 161 mg/dL (74-106); High Density Lipoprotein 88 mg/dL; Potassium 4.4 mmol/L (3.5-5.1); Sodium Level 136 mmol/L (136-145); Triglycerides 96 mg/dL; Very Low Density Lipoprotein 19 mg/dL (5-40)
== END ==
PROVIDERS: PCP Family Medicine; Referring Provider Family Medicine; Visit Provider Family Medicine
DX: E11.9 Type 2 diabetes mellitus without complications (principal)
CPT/HCPCS: 36415; 80048; 80061

== ENCOUNTER 2022-01-24 14:44 | Outpatient (CLI) | payer MEDICARE, SELFPAY ==
[2022-01-24 18:44] LABS: Anion Gap 7 (5-15); BUN 35 mg/dL (7-18); BUN/Creat Ratio 18.3 RATIO (10-20); Calcium,Total 9.5 mg/dL (8.5-10.1); Chloride 103 mmol/L (98-107); Creatinine, Serum 1.91 mg/dL (0.55-1.02); EST Glomerular Filtration Rate 27 mL/min (>60); Est Glom Filt Rate - Afr Amer 33 mL/min (>60); Glucose 388 mg/dL (74-106); Potassium 4.4 mmol/L (3.5-5.1); Sodium Level 135 mmol/L (136-145); Thyroid Stim Hormone (TSH) 1.28 uIU/mL (0.358-3.74)
== END 2022-01-24 23:59 | disposition home or self-care (01) ==
LOC: MFPLAB 14:47
PROVIDERS: PCP Family Medicine; Referring Provider Family Medicine; Visit Provider Family Medicine
DX: R60.9 Edema, unspecified (principal); J43.9 Emphysema, unspecified; R63.5 Abnormal weight gain
CPT/HCPCS: 36415; 80048; 83880; 84443

== ENCOUNTER → 2022-04-26 | Outpatient (CLI) | payer MEDICARE, SELFPAY ==
[2022-04-26 18:22] LABS: Anion Gap 10 (5-15); BUN 41 mg/dL (7-18); BUN/Creat Ratio 24.6 RATIO (10-20); Calcium,Total 9.4 mg/dL (8.5-10.1); Chloride 100 mmol/L (98-107); Cholesterol 136 mg/dL (200); Creatinine, Serum 1.67 mg/dL (0.55-1.02); EST Glomerular Filtration Rate 31 mL/min (>60); Est Glom Filt Rate - Afr Amer 38 mL/min (>60); Glucose 169 mg/dL (74-106); High Density Lipoprotein 72 mg/dL; Sodium Level 135 mmol/L (136-145); Triglycerides 73 mg/dL; Very Low Density Lipoprotein 15 mg/dL (5-40)
== END | disposition home or self-care (01) ==
LOC: MFPLAB 15:08
PROVIDERS: PCP Family Medicine; Visit Provider Family Medicine
DX: E11.9 Type 2 diabetes mellitus without complications (principal)
CPT/HCPCS: 36415; 80048; 80061

== ENCOUNTER → 2022-07-26 | Outpatient (CLI) | payer MEDICARE, SELFPAY ==
[2022-07-26 10:26] LABS: Anion Gap 11 (5-15); BUN 78 mg/dL (7-18); BUN/Creat Ratio 33.3 RATIO (10-20); Calcium,Total 9.6 mg/dL (8.5-10.1); Chloride 100 mmol/L (98-107); Cholesterol 119 mg/dL (200); Creatinine, Serum 2.34 mg/dL (0.55-1.02); EST Glomerular Filtration Rate 21 mL/min (>60); Est Glom Filt Rate - Afr Amer 26 mL/min (>60); Glucose 255 mg/dL (74-106); High Density Lipoprotein 59 mg/dL; Sodium Level 133 mmol/L (136-145); Triglycerides 126 mg/dL; Very Low Density Lipoprotein 25 mg/dL (5-40)
[2022-07-26 15:37] LABS: Microalbumin,Random Urine 35.8 mg/L (NO RANGE EST.); Microalbumin:Creatinine Ratio 69.8 mg/g CRE (<30 mg/g CRE)
== END | disposition home or self-care (01) ==
LOC: MFPLAB 08:12
PROVIDERS: PCP Family Medicine; Referring Provider Family Medicine; Visit Provider Family Medicine
DX: E11.9 Type 2 diabetes mellitus without complications (principal)
CPT/HCPCS: 36415; 80048; 80061; 82043; 82570

== ENCOUNTER 2022-08-23 15:45 | Inpatient (IN) | payer MEDICARE, SELFPAY ==
[2022-08-23] VITALS (12 sets, daily range): BP systolic 111–168; BP diastolic 56–145; PULSE 50–65; RESP 13–19; TEMP 36.6; O2SAT 93–98; BMI 27.1; BMI 29.3
[2022-08-23 17:33] LABS: Mucous, Urine 0 SEEN /hpf (<or=2+)
[2022-08-23 17:34] LABS: Color, Urine Yellow (Yellow); Glucose, Dipstick 1000 mg/dl (Normal); Ketone-Dipstick 5 mg/dl (Negative); Leukocyte Esterase-Dipstick 500 /ul (Negative); Nitrite-Dipstick Negative (Negative); Occult Blood-Urine 25 /ul (Negative); Protein-Dipstick Negative (Negative); Urine Bilirubin Dipstick Negative (Negative); Urine Clarity Cloudy (Clear); Urine Urobilinogen Normal (Normal)
[2022-08-23 17:43] LABS: Bacteria 3+ /hpf (None Seen); Red Blood Cells-Urine 0-5 SEEN /hpf (0-5); Squamous Epithelial Cells - UA 0-5 SEEN /hpf (5-10); White Blood Cells 10-25 SEEN /hpf (0-5)
[2022-08-23 17:46] LABS: Absolute Lymphocyte Count 1.29 X10^3/uL (0.83-4.51); Absolute Neutrophil Count 8.7 X10^3/uL (2.0-7.7); Basophil# 0.05 X10^3/uL; Basophil% 0.5 % (0-1); Eosinophil# 0.03 X10^3/uL; Eosinophils% 0.3 % (0-5); Hematocrit 34.9 % (37-47); Hemoglobin 11.6 g/dL (12.0-15.0); Lymphocyte # 1.29 X10^3/ul (0.83-4.51); Lymphocyte % 11.7 % (19-41); Mean Corp Hgb Conc 33.2 g/dL (32-36); Mean Corpuscular Hgb 26.5 pg (27.0-32.0); Mean Corpuscular Volume 79.7 fL (81-99); Mean Platelet Vol. 11.2 fl (6.2-12.0); Monocyte# 1.01 X10^3/uL; Monocyte% 9.1 % (0-10); NRBC Flagged by Analyzer 0 % (0-5); Neutrophil # 8.65 X10^3/uL (2.7-7.7); Platelet Count 397 K/mm3 (150-450); RBC Distribution Width CV 16.5 % (11.6-14.6); RBC Distribution Width SD 46.5 fl (35.1-43.9); Red Blood Count 4.38 M/mm3 (4.2-5.4); White Blood Count 11.1 K/mm3 (4.4-11.0)
--- NOTE | 2022-08-23 18:27 | EDS_ITS ---
HPI History of Present Illness Chief Complaint: Fatigue [facility] Medical History (Updated 08/23/22 @ 19:[address] An Hurley MD) Anemia Colles' fracture of left radius Congestive heart failure (CHF) Coronary artery disease Diabetes FH: coronary artery bypass surgery High cholesterol PAD (peripheral artery disease) PAF (paroxysmal atrial fibrillation) Stage 3b chronic kidney disease Home Medications apixaban 5 mg tablet 2.5 mg PO BID blood thinner 02/17/20 [History Last Taken 02/17/20] aspirin 81 mg tablet,delayed release (Adult Low Dose Aspirin) 81 mg PO DAILY 05/11/20 [History Last Taken Unknown] atorvastatin 80 mg tablet 80 mg PO DAILY 05/11/20 [History Last Taken Unknown] furosemide 20 mg tablet (Lasix) 40 mg PO DAILY 05/11/20 [History Last Taken Unknown] metoprolol tartrate 50 mg tablet 50 mg PO DAILY heart 05/11/20 [History Last Taken Unknown] amiodarone 200 mg tablet 200 mg PO DAILY 03/13/21 [History Last Taken Unknown] ascorbic acid (vitamin C) 500 mg tablet (Vitamin C) 500 mg PO BID #60 tabs 03/15/21 [Rx Last Taken Unknown] ferrous sulfate 325 mg (65 mg iron) tablet 325 mg PO 1200,1700 #60 tabs 03/15/21 [Rx Last Taken Unknown] pantoprazole 40 mg tablet,delayed release (Protonix) 40 mg PO DAILY #30 tabs 03/15/21 [Rx Last Taken Unknown] empagliflozin 10 mg tablet (Jardiance) 10 mg PO DAILY 08/23/22 [History Last Taken Unknown] lisinopril 5 mg tablet 10 mg PO QHS 08/23/22 [History Last Taken Unknown] Allergy/AdvReac Type Severity Reaction Status Date / Time No Known Allergies Allergy Verified 08/23/22 15:45 Surgical History (Updated 08/23/22 @ 19:[address] 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 An Hurley MD) household members: none Smoking Status: Former smoker how long ago did patient quit smoking: Smoked 1-3 ppd from 21 until quit 1 yr prior (2020). alcohol intake: never substance use type: does not use EXAM Physical Exam Const Vital Signs: 08/23/22 15:45 08/23/22 16:46 08/23/22 18:03 Temperature 97.8 F Temperature Source Temporal Pulse Rate 65 61 Respiratory Rate 18 18 Respiratory Effort Normal Non-Labored Respiratory Pattern Normal Blood Pressure 138/56 H 111/75 Blood Pressure Mean 83 87 Pulse Ox 98 96 Oxygen Delivery Method Room Air Room Air MDM MDM MDM Narrative Medical decision making narrative: With fatigue and high blood sugar reading need to evaluate for hyperosmolar nonketotic hyperglycemia versus DKA. We will need to evaluate for metabolic infectious causes as well. Patient was started on insulin drip 0.1 units/kg/h. Lab Data Attestation: I reviewed the patient's lab results. Lab results narrative: White count is slightly elevated with shift which is not significant. Urine is consistent with infection. Will send urine culture. I was informed by the lab that her BUN is 90 with a sodium of 122 and a glucose of 686. There are ketones noted in her urine. If there is an anion gap she has mild DKA. There is a component of pseudohyponatremia due to the elevated blood sugar. Furthermore suspect the hyponatremia is due to loop diuretic. Labs: Laboratory Results - last 24 hr 08/23/22 08/23/22 08/23/22 17:20 17:34 17:34 WBC 11.1 H RBC 4.38 Hgb 11.6 L Hct 34.9 L MCV 79.7 L MCH 26.5 L MCHC 33.2 RDW Std Deviation 46.5 H RDW Coeff of Marga 16.5 H Plt Count 397 MPV 11.2 Immature Gran % (Auto) 0.400 Neut % (Auto) 78.0 H Lymph % (Auto) 11.7 L [place] % (Auto) 9.1 Eos % (Auto) 0.3 Baso % (Auto) 0.5 Absolute Neuts (auto) 8.7 H Absolute Lymphs (auto) 1.29 Nucleated RBC % 0 Sodium 122 L Potassium 4.8 Chloride 85 L Carbon Dioxide 20.0 L Anion Gap 17 H BUN 90 H Creatinine 2.78 H Estim Creat Clear Calc 12.98 Est GFR (MDRD) Af Amer 21 L Est GFR (MDRD) Non-Af 17 L BUN/Creatinine Ratio 32.4 H Glucose 686 H* Calcium 10.0 Urine Color Yellow Urine Clarity Cloudy Urine pH 5.0 Ur Specific [place] 1.010 Urine Protein Negative Urine Glucose (UA) 1000 H Urine Ketones 5 H Urine Occult Blood 25 H Urine Nitrite Negative Urine Bilirubin Negative Urine Urobilinogen Normal Ur Leukocyte Esterase 500 H Urine RBC 0-5 SEEN Urine WBC 10-25 SEEN Ur Squamous Epith Cells 0-5 SEEN Urine Bacteria 3+ Urine Mucus 0 SEEN EKG Initial EKG: Attestation: I personally reviewed and interpreted this EKG as follows: Interpretation: Sinus Rhythm (Sinus bradycardia rate of 53. There is an ossific changes which is artifact. TN interval is 170 ms. QS duration 86 ms. QT duration 480 ms. [place] is normal.) Critical Care Time Critical Care Time: Yes Critical care time (excluding procedures): 30-74 minutes (36), Including time spent: (History, physical, documentation, review of prior records), Discussing w/Patient &/or Family/Supplier Quality Specialist, Discussing w/Consultants and Arranging Admission or Transfer Discharge Plan Dx/Rx/DC Orders Clinical Impression: DKA, type 2, Urinary tract infection, Acute hyponatremia, Acute prerenal azotemia, Acute kidney injury superimposed on chronic kidney disease Disposition Disposition: Acute Care Hospital [facility] Discharge Date/Time: 08/23/22 19:20
[2022-08-23 18:28] LABS: Anion Gap 17 (5-15); BUN 90 mg/dL (7-18); BUN/Creat Ratio 32.4 RATIO (10-20); Chloride 85 mmol/L (98-107); Creatinine, Serum 2.78 mg/dL (0.55-1.02); EST Glomerular Filtration Rate 17 mL/min (>60); Est Glom Filt Rate - Afr Amer 21 mL/min (>60); Estimated Creatinine Clearance 12.98 ml/min; Glucose 686 mg/dL (74-106); Potassium 4.8 mmol/L (3.5-5.1); Sodium Level 122 mmol/L (136-145)
--- NOTE | 2022-08-23 18:46 | HP.PCM.HOS_ITS ---
HPI - General General Date of Admission: 08/23/22 Date of Service: 08/23/22 Chief Complaint: Elevated BS, elevated BP, weakness, debility. HPI Narrative The patient is a 81 y/o F w/ PMHx: Former heavy tobacco use, Chronic anemia/Fe deficiency, Chronic Presumed Diastolic CHF, HTN, HLD, PAF, PAD, CAD s/p CABG, CKD stage IIIb, Diabetes mellitus type II, Hx GI bleed who presents to the [facility] ED on 08/23/22 with history of significant fatigue and malaise, decreased recent oral intake, suprapubic discomfort and increased urinary frequency as well as polydipsia with notably elevated blood sugars above her normal range with general decline at least 2 to 3 days with no fevers or chills however significant debility prompting her to call family to even help her ambulate or function prompting eventual ED transition for evaluation. She denies any COVID type symptoms of note. Work-up in the ED included T97.8, heart rate 65, BP 130/56, respiratory rate 18, 98% on room air, CBC with WC 11.1, hemoglobin 11.6, MCV 79.7, platelet 397 with left shift, BMP with sodium 122, potassium 4.8, chloride 85,, dioxide 20, anion gap 17, BUN/creat 90/2.78, glucose 686, urinalysis with 1000 glucose, ketone 5, occult blood 25, negative nitrite, leukocyte Estrace 500, urine WC is 10-25 with 3+ urine bacteria, UCx pending. In the ED patient initiated on IV Rocephin therapy and insulin drip. [facility] Medical History (Updated 08/23/22 @ 19:[address] An Hurley MD) Anemia Colles' fracture of left radius Congestive heart failure (CHF) Coronary artery disease Diabetes FH: coronary artery bypass surgery High cholesterol PAD (peripheral artery disease) PAF (paroxysmal atrial fibrillation) Stage 3b chronic kidney disease Home Medications apixaban 5 mg tablet 2.5 mg PO BID blood thinner 02/17/20 [History Last Taken 02/17/20] aspirin 81 mg tablet,delayed release (Adult Low Dose Aspirin) 81 mg PO DAILY 05/11/20 [History Last Taken Unknown] atorvastatin 80 mg tablet 80 mg PO DAILY 05/11/20 [History Last Taken Unknown] furosemide 20 mg tablet (Lasix) 40 mg PO DAILY 05/11/20 [History Last Taken Unknown] metoprolol tartrate 50 mg tablet 50 mg PO DAILY heart 05/11/20 [History Last Taken Unknown] amiodarone 200 mg tablet 200 mg PO DAILY 03/13/21 [History Last Taken Unknown] ascorbic acid (vitamin C) 500 mg tablet (Vitamin C) 500 mg PO BID #60 tabs 03/15/21 [Rx Last Taken Unknown] ferrous sulfate 325 mg (65 mg iron) tablet 325 mg PO 1200,1700 #60 tabs 03/15/21 [Rx Last Taken Unknown] pantoprazole 40 mg tablet,delayed release (Protonix) 40 mg PO DAILY #30 tabs 03/15/21 [Rx Last Taken Unknown] empagliflozin 10 mg tablet (Jardiance) 10 mg PO DAILY 08/23/22 [History Last Taken Unknown] lisinopril 5 mg tablet 10 mg PO QHS 08/23/22 [History Last Taken Unknown] Allergy/AdvReac Type Severity Reaction Status Date / Time No Known Allergies Allergy Verified 08/23/22 15:45 other (Patient family in [place] thus she has no knowlege of her family hx.) Surgical History (Updated 08/23/22 @ 19:[address] 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 An Hurley MD) household members: none Smoking Status: Former smoker how long ago did patient quit smoking: Smoked 1-3 ppd from 21 until quit 1 yr prior (2020). alcohol intake: never substance use type: does not use ROS ROS Narrative Admission Review of Systems: CONSTITUTIONAL: No weight loss, fever, chills, + weakness or fatigue. HEENT: Eyes: No visual loss, blurred vision, double vision or yellow sclerae. Ears, Nose, Throat: No hearing loss, sneezing, congestion, runny nose or sore throat. SKIN: No rash or itching, lesions, wounds. CARDIOVASCULAR: No chest pain, chest pressure or chest discomfort, palpitations, edema, orthopnea, syncopal events. RESPIRATORY: No shortness of breath, cough or sputum, wheezing, hemoptysis. GASTROINTESTINAL:+ anorexia, nausea, suprapubic/lower mid-abd discomfort, No vomiting or diarrhea, melena, BRBPR. GENITOURINARY: + suprapubic pain, frequency. NEUROLOGICAL: No headache, dizziness, syncope, paralysis, ataxia, numbness or tingling in the extremities, focal weakness, change in bowel or bladder control, seizure. MUSCULOSKELETAL: + muscle, back pain, joint pain or stiffness. HEMATOLOGIC: + anemia, bleeding or bruising. LYMPHATICS: No enlarged nodes. No history of splenectomy. PSYCHIATRIC: No history of depression or anxiety. ENDOCRINOLOGIC: No reports of sweating, cold or heat intolerance. No polyuria or polydipsia. ALLERGIES: No history of asthma, hives, eczema or rhinitis. Vital Signs Vital Signs Vital Signs: 08/23/22 15:45 08/23/22 16:46 08/23/22 18:03 Temperature 97.8 F Temperature Source Temporal Pulse Rate 65 61 Respiratory Rate 18 18 Respiratory Effort Normal Non-Labored Respiratory Pattern Normal Blood Pressure 138/56 H 111/75 Blood Pressure Mean 83 87 Pulse Ox 98 96 Oxygen Delivery Method Room Air Room Air Weight Weight: 148 lb Body Mass Index (BMI) 27.1 Physical Exam Narrative Physical Examination: General: Awake, alert, oriented x 3 and cooperative, seated upright in the ED bed, fatigued, no acute distress. Skin: Normal color, normal turgor, no icterus, no cyanosis except for occasional staged ecchymoses. HEENT: AT/NC, EOMI, PERRLA, dry MM, no carotid bruits or JVD noted. Lungs: Mildly diminished, greater bases, appropriate effort, no rales, ronchi or wheezing. Heart: Mildly bradycardic; no gallop, rub audible. Abdomen: Soft, notable suprapubic discomfort with palpation otherwise abdomen nontender to palpation, ND, mildly hyperactive BS, no HSM. Extremities: No cyanosis, clubbing, or edema. Neurological: Patient awake, alert, oriented as noted, cognitive function intact; pupils equally reactive to light and accommodation, cranial nerves II- XII grossly normal, moving all 4 extremities, no focal deficits, strength moderately to severely global decreased secondary to acute presentation Psychiatric: Affect appears fatigued otherwise normal, no acute evidence of depressive or anxiety feelings. Results Lab / Micro Data Result Diagrams: 08/23/22 17:34 08/23/22 17:34 Labs: Laboratory Results - last 24 hr 08/23/22 17:20: Urine Color Yellow, Urine Clarity Cloudy, Urine pH 5.0, Ur Specific [place] 1.010, Urine Protein Negative, Urine Glucose (UA) 1000 H, Urine Ketones 5 H, Urine Occult Blood 25 H, Urine Nitrite Negative, Urine Bilirubin Negative, Urine Urobilinogen Normal, Ur Leukocyte Esterase 500 H, Urine RBC 0-5 SEEN, Urine WBC 10-25 SEEN, Ur Squamous Epith Cells 0-5 SEEN, Urine Bacteria 3+, Urine Mucus 0 SEEN 08/23/22 17:34: WBC 11.1 H, RBC 4.38, Hgb 11.6 L, Hct 34.9 L, MCV 79.7 L, MCH 26.5 L, MCHC 33.2, RDW Std Deviation 46.5 H, RDW Coeff of Marga 16.5 H, Plt Count 397, MPV 11.2, Immature Gran % (Auto) 0.400, Neut % (Auto) 78.0 H, Lymph % (Auto) 11.7 L, Mckenzie % (Auto) 9.1, Eos % (Auto) 0.3, Baso % (Auto) 0.5, Absolute Neuts (auto) 8.7 H, Absolute Lymphs (auto) 1.29, Nucleated RBC % 0 08/23/22 17:34: Sodium 122 L, Potassium 4.8, Chloride 85 L, Carbon Dioxide 20.0 L, Anion Gap 17 H, BUN 90 H, Creatinine 2.78 H, Estim Creat Clear Calc 12.98, Est GFR (MDRD) Af Amer 21 L, Est GFR (MDRD) Non-Af 17 L, BUN/Creatinine Ratio 32.4 H, Glucose 686 H*, Calcium 10.0 Assessment & Plan Assessment/Plan (1) DKA, type 2: PLAN: Plan The patient is a 81 y/o F w/ PMHx: Former heavy tobacco use, Chronic anemia/Fe deficiency, Chronic Presumed Diastolic CHF, HTN, HLD, PAF, PAD, CAD s/p CABG, CKD stage IIIb, Diabetes mellitus type II, Hx GI bleed who presents to the [facility] ED on 08/23/22 with history of significant fatigue and malaise, decreased recent oral intake, suprapubic discomfort and increased urinary frequency as well as polydipsia with general decline at least 2 to 3 days with elevated BS. #1. DKA w/ Diabetes mellitus type II: Will admit to the ICU, continue on insulin drip, check serial K+, glucose w/ IVF changes pending these levels, serial chemistry, obtain mag, phos daily w/ repletion as needed, hemoglobin A1c requested, nutrition consultation. Encouraged diet and insulin regimen compliance. We will as noted continue IV fluids however will perform this judiciously given presumed diastolic CHF however last echo was 2014. #2. Acute Complicated Urinary Tract Infection: UA upon ED evaluation remarkable, pending UCx, continue judicious IVFs, monitor I/Os, continue IV Rocephin w/ transition as able pending sensitivities and speciation. Bld cx x 2 obtained in the ED. #3. PAULINA on Chronic Kidney Disease Stage IIIb: Secondary to acute presentation with DKA as noted, admission BUN/Cr 90/2.78, baseline renal function 1.4-1.9 primarily however 07/26/2022 patient creatinine 2.34, repeat BMP in AM. #4. Chronic anemia, microcytic, currently MCV 79.7/Fe deficiency anemia: Admission hemoglobin 11.6, baseline appears - recently, stable but has been much lower in the past with history of prior GI bleed of note, trend CBC. Continue Fe supplementation. #5. Chronic Presumed Diastolic CHF: 07/26/15 w/ ECHO w/ normal LV systolic function, EF 60%, mildly enlarged LA, mild MVI, mild TVI, trivial PVI, RVSP 31 mmHg. Will continue hydration cautiously given CHF history listed although last ECHO as noted 2014, will continue aspirin, lower dose apixaban, statin therapy, metoprolol, holding lisinopril and Lasix given acute presentation with PAULINA and DKA as noted, resume once appropriate. #6. CAD, PAD: s/p prior peripheral angioplasties as well as CABG, will continue aspirin, lower dose apixaban, statin therapy, metoprolol, holding lisinopril given acute presentation with PAULINA and DKA as noted, resume once appropriate. #7. PAF: We will continue patient home amiodarone, metoprolol as well as apixaban home regimen #8. Hypertension: We will continue patient home metoprolol regimen, holding lisinopril given PAULINA as well as Lasix. As needed IV hydralazine #9. Hyperlipidemia: We will continue patient on statin therapy. #10. Former heavy tobacco use: Encourage continued cessation. #11. DVT prophylaxis: SCDs, apixaban. #12. CODE status: Patient DANIELLE is her daughter who is and living will is currently in place. Discussed CODE status at length including difference between FULL code, DNR-CCA and DNR-CC status. Following discussions about the differences in these status, requested Full Code status. Advanced Care Planning Face to Face Time: 16 minutes. Charges/Coding Visit Charges Inpatient E&M: 14433 Init Hosp L3 Procedures Hospitalists Procedures: 45863 Advncd Care Plan 30 Min
--- NOTE | 2022-08-23 18:46 | EKG12_ITS ---
Test Reason : FATIGUE Blood Pressure : / mmHG Vent. Rate : 053 BPM Atrial Rate : 053 BPM P-R Int : 172 ms QRS Dur : 086 ms QT Int : 480 ms P-R-T Axes : 048 -04 040 degrees QTc Int : 450 ms Sinus bradycardia Nonspecific ST and T wave abnormality Abnormal ECG Confirmed by SUJATHA COLON, EZ ([id number]), technical editor TING DUEÑAS ([id number]) on 08/27/2022 1:13:36 PM Referred By: KATHRYN Confirmed By:EZ SOLARES MD
[2022-08-23] MEDS: Ceftriaxone 1 GM/50 ML BAG IV (19:08)
[2022-08-23 19:36] LABS: Lactic Acid 1.6 mmol/L (0.4-1.9)
[2022-08-23 19:52] LABS: Magnesium 2.8 mg/dL (1.6-2.6); Phosphorus 4.7 mg/dL (2.5-4.9)
[2022-08-23] MEDS: 0.9% Normal Saline 1,000 ML 999 ML IV (20:13)
[2022-08-23] MEDS: Atorvastatin Calcium 80 MG Tablet PO (21:23)
[2022-08-23] MEDS: APIXABAN 2.5 MG TABLET PO (21:23)
[2022-08-23] MEDS: 0.9% Normal Saline 1,000 ML 125 ML IV (21:25)
[2022-08-23 21:50] LABS: Anion Gap 13 (5-15); BUN 88 mg/dL (7-18); BUN/Creat Ratio 34.5 RATIO (10-20); Calcium,Total 8.8 mg/dL (8.5-10.1); Chloride 95 mmol/L (98-107); Creatinine, Serum 2.55 mg/dL (0.55-1.02); EST Glomerular Filtration Rate 19 mL/min (>60); Est Glom Filt Rate - Afr Amer 23 mL/min (>60); Glucose 576 mg/dL (74-106); Potassium 3.5 mmol/L (3.5-5.1); Sodium Level 128 mmol/L (136-145)
[2022-08-24] VITALS (22 sets, daily range): BP systolic 87–139; BP diastolic 39–89; PULSE 51–67; RESP 15–21; TEMP 36.3–37; O2SAT 92–98
[2022-08-24 00:36] LABS: Bedside Glucose 497 mg/dL (74-106)
[2022-08-24 00:36] LABS: Bedside Glucose > 500 mg/dL (74-106)
[2022-08-24 00:36] LABS: Bedside Glucose 392 mg/dL (74-106)
[2022-08-24 00:36] LABS: Bedside Glucose 464 mg/dL (74-106)
[2022-08-24 01:41] LABS: Bedside Glucose 334 mg/dL (74-106)
[2022-08-24 02:11] LABS: Anion Gap 14 (5-15); BUN 80 mg/dL (7-18); BUN/Creat Ratio 33.6 RATIO (10-20); Chloride 97 mmol/L (98-107); Creatinine, Serum 2.38 mg/dL (0.55-1.02); EST Glomerular Filtration Rate 21 mL/min (>60); Est Glom Filt Rate - Afr Amer 25 mL/min (>60); Estimated Creatinine Clearance 14.46 ml/min; Glucose 373 mg/dL (74-106); Potassium 3.8 mmol/L (3.5-5.1); Sodium Level 131 mmol/L (136-145)
[2022-08-24] MEDS: 0.9% Normal Saline 1,000 ML 125 ML IV (04:30)
[2022-08-24 04:40] LABS: Absolute Lymphocyte Count 1.25 X10^3/uL (0.83-4.51); Absolute Neutrophil Count 11.2 X10^3/uL (2.0-7.7); Basophil# 0.04 X10^3/uL; Basophil% 0.3 % (0-1); Eosinophil# 0.04 X10^3/uL; Eosinophils% 0.3 % (0-5); Hematocrit 31.2 % (37-47); Hemoglobin 10.1 g/dL (12.0-15.0); Lymphocyte # 1.25 X10^3/ul (0.83-4.51); Lymphocyte % 9.1 % (19-41); Mean Corp Hgb Conc 32.4 g/dL (32-36); Mean Corpuscular Hgb 26.3 pg (27.0-32.0); Mean Corpuscular Volume 81.3 fL (81-99); Mean Platelet Vol. 11.1 fl (6.2-12.0); Monocyte# 1.16 X10^3/uL; Monocyte% 8.4 % (0-10); NRBC Flagged by Analyzer 0 % (0-5); Neutrophil # 11.23 X10^3/uL (2.7-7.7); Neutrophil % 81.5 % (47-70); Platelet Count 299 K/mm3 (150-450); RBC Distribution Width CV 16.3 % (11.6-14.6); RBC Distribution Width SD 47.9 fl (35.1-43.9); Red Blood Count 3.84 M/mm3 (4.2-5.4); White Blood Count 13.8 K/mm3 (4.4-11.0)
[2022-08-24 05:21] LABS: Bedside Glucose 327 mg/dL (74-106)
[2022-08-24 05:21] LABS: Bedside Glucose 314 mg/dL (74-106)
[2022-08-24 05:21] LABS: Bedside Glucose 275 mg/dL (74-106)
[2022-08-24 05:21] LABS: Bedside Glucose 265 mg/dL (74-106)
[2022-08-24 05:51] LABS: Bedside Glucose 249 mg/dL (74-106)
[2022-08-24 07:00] LABS: Anion Gap 11 (5-15); BUN 80 mg/dL (7-18); BUN/Creat Ratio 34.5 RATIO (10-20); Chloride 101 mmol/L (98-107); Creatinine, Serum 2.32 mg/dL (0.55-1.02); EST Glomerular Filtration Rate 22 mL/min (>60); Est Glom Filt Rate - Afr Amer 26 mL/min (>60); Estimated Creatinine Clearance 14.84 ml/min; Glucose 261 mg/dL (74-106); Potassium 3.7 mmol/L (3.5-5.1); Sodium Level 134 mmol/L (136-145)
--- NOTE | 2022-08-24 08:39 | PCM.PN.HOSP ---
Subjective Subjective DOS: 08/24/2022 CC: Follow-up DKA and UTI Reports feeling much better today, denies abdominal pain or suprapubic pain, did have urinary retention earlier and felt better after straight cath. Feels ready to eat. Gap closed overnight and will be transitioned to subcu insulin. Denies chest pain or shortness of breath. Objective Data Objective Data Vital Signs: Vital Signs Temp Pulse Resp BP Pulse Ox O2 Del Method 98.6 F 61 16 124/48 H 95 Room Air 08/24/22 04:00 08/24/22 08:00 08/24/22 07:00 08/24/22 07:00 08/24/22 07:00 08/24/22 07:00 Oxygen Delivery Method Room Air Weight: 71.5 kg Body Mass Index (BMI) 29.3 Intake & Output: Intake and Output for Last 24 Hours 08/22/22 08/23/22 08/24/22 23:59 23:59 23:59 Intake Total 1063.52 / 1063.52 893.95 / 893.95 Balance 1063.52 / 1063.52 893.95 / 893.95 Lab / Micro Data Result Diagrams: 08/24/22 04:30 08/24/22 08:45 Labs: Laboratory Results - last 24 hr 08/23/22 09:21: Sodium 128 L, Potassium 3.5, Chloride 95 L, Carbon Dioxide 20.0 L, Anion Gap 13, BUN 88 H, Creatinine 2.55 H, Estim Creat Clear Calc 13.50, Est GFR (MDRD) Af Amer 23 L, Est GFR (MDRD) Non-Af 19 L, BUN/Creatinine Ratio 34.5 H, Glucose 576 H*, Calcium 8.8 08/23/22 17:20: Urine Color Yellow, Urine Clarity Cloudy, Urine pH 5.0, Ur Specific [place] 1.010, Urine Protein Negative, Urine Glucose (UA) 1000 H, Urine Ketones 5 H, Urine Occult Blood 25 H, Urine Nitrite Negative, Urine Bilirubin Negative, Urine Urobilinogen Normal, Ur Leukocyte Esterase 500 H, Urine RBC 0-5 SEEN, Urine WBC 10-25 SEEN, Ur Squamous Epith Cells 0-5 SEEN, Urine Bacteria 3+, Urine Mucus 0 SEEN 08/23/22 17:34: WBC 11.1 H, RBC 4.38, Hgb 11.6 L, Hct 34.9 L, MCV 79.7 L, MCH 26.5 L, MCHC 33.2, RDW Std Deviation 46.5 H, RDW Coeff of Marga 16.5 H, Plt Count 397, MPV 11.2, Immature Gran % (Auto) 0.400, Neut % (Auto) 78.0 H, Lymph % (Auto) 11.7 L, [place] % (Auto) 9.1, Eos % (Auto) 0.3, Baso % (Auto) 0.5, Absolute Neuts (auto) 8.7 H, Absolute Lymphs (auto) 1.29, Nucleated RBC % 0 08/23/22 17:34: Sodium 122 L, Potassium 4.8, Chloride 85 L, Carbon Dioxide 20.0 L, Anion Gap 17 H, BUN 90 H, Creatinine 2.78 H, Estim Creat Clear Calc 12.98, Est GFR (MDRD) Af Amer 21 L, Est GFR (MDRD) Non-Af 17 L, BUN/Creatinine Ratio 32.4 H, Glucose 686 H*, Calcium 10.0 08/23/22 17:34: Phosphorus 4.7, Magnesium 2.8 H 08/23/22 19:02: Lactic Acid 1.6 08/23/22 19:47: POC Glucose > 500 H* 08/23/22 21:18: POC Glucose 497 H* 08/23/22 22:00: COVID-19 (RUTH) Not Detected 08/23/22 22:18: POC Glucose 464 H* 08/23/22 23:20: POC Glucose 392 H 08/24/22 00:17: POC Glucose 334 H 08/24/22 01:15: Sodium 131 L, Potassium 3.8, Chloride 97 L, Carbon Dioxide 20.0 L, Anion Gap 14, BUN 80 H, Creatinine 2.38 H, Estim Creat Clear Calc 14.46, Est GFR (MDRD) Af Amer 25 L, Est GFR (MDRD) Non-Af 21 L, BUN/Creatinine Ratio 33.6 H, Glucose 373 H, Calcium 9.0 08/24/22 01:16: POC Glucose 314 H 08/24/22 02:30: POC Glucose 327 H 08/24/22 03:30: POC Glucose 275 H 08/24/22 04:30: WBC 13.8 H, RBC 3.84 L, Hgb 10.1 L, Hct 31.2 L, MCV 81.3, MCH 26.3 L, MCHC 32.4, RDW Std Deviation 47.9 H, RDW Coeff of Marga 16.3 H, Plt Count 299, MPV 11.1, Immature Gran % (Auto) 0.400, Neut % (Auto) 81.5 H, Lymph % (Auto) 9.1 L, [place] % (Auto) 8.4, Eos % (Auto) 0.3, Baso % (Auto) 0.3, Absolute Neuts (auto) 11.2 H, Absolute Lymphs (auto) 1.25, Nucleated RBC % 0 08/24/22 04:30: Hemoglobin A1c 12.0 H 08/24/22 04:32: POC Glucose 265 H 08/24/22 05:28: POC Glucose 249 H 08/24/22 05:55: Sodium Cancelled, Potassium Cancelled, Chloride Cancelled, Carbon Dioxide Cancelled, Anion Gap Cancelled, BUN Cancelled, Creatinine Cancelled, Estim Creat Clear Calc Cancelled, Est GFR (MDRD) Af Amer Cancelled, Est GFR (MDRD) Non-Af Cancelled, BUN/Creatinine Ratio Cancelled, Glucose Cancelled, Calcium Cancelled 08/24/22 06:35: Sodium 134 L, Potassium 3.7, Chloride 101, Carbon Dioxide 22.0, Anion Gap 11, BUN 80 H, Creatinine 2.32 H, Estim Creat Clear Calc 14.84, Est GFR (MDRD) Af Amer 26 L, Est GFR (MDRD) Non-Af 22 L, BUN/Creatinine Ratio 34.5 H, Glucose 261 H, Calcium 9.0 Physical Exam Const alert and no apparent distress Constitutional Narrative: Oriented HEENT normocephalic and head/scalp atraumatic Eyes Eyes Narrative: EOM grossly intact, anicteric Neck supple Resp normal respiratory effort and clear to auscultation bilaterally Cardio regular rate and regular rhythm GI soft to palpation, non-tender and non-distended Extremity Extremity Narrative: No edema appreciated Neuro moves all extremities Neuro Narrative: No overt focal deficits appreciated Psych Psych Narrative: Cooperative Assessment & Plan Assessment/Plan (1) DKA, type 2: PLAN: Plan Ms. Merlos is a 81-year-old female with past medical history of former heavy tobacco use, chronic anemia/iron deficiency anemia, chronic presumed diastolic congestive heart failure, hypertension, paroxysmal A. fib, PAD, CAD status post CABG, CKD stage IIIb, type II diabetes mellitus, and history of GI bleed who presented to [facility] 09/19/2022 with fatigue and malaise with a decrease in recent oral intake and suprapubic discomfort with increased urinary frequency and polydipsia and also noted elevated glucose for 2 to 3 days. #Acute complicated urinary tract infection with debility UA consistent with urinary tract infection Urine culture pending Blood cultures pending On Rocephin Has been retaining some urine, straight cath x1 and will have another postvoid this afternoon to assess for further retention PT/OT as well given worsened ability #Type 2 diabetes mellitus with DKA and CKD stage IIIb Was admitted to ICU, hyperglycemia likely worsened by acute UTI Was not on insulin at home and is not a type I however was on SGLT2 inhibitor Gap closed with fluids and insulin Will stop both and start on sliding scale insulin as well as 5 units of glargine, suspect that infection contributed to her significant hyperglycemia and with improving infection glucose will decrease and requirements will be lower than anticipated. May be a good Victoza candidate as an outpatient as she wants to minimize injections but given kidney function and inability to tolerate SGLT2 inhibitor options may be limited A1c is pending Nutrition was consulted #CAD status post CABG Aspirin, statin #PAULINA on CKD stage IIIb Avoid nephrotoxic agents, lisinopril held given PAULINA Baseline renal function 1.4?1.9 and on admission it was 2.78 (of note earlier in July it was also elevated over baseline) Trend BMP #Paroxysmal atrial fibrillation On Eliquis and amiodarone Continue metoprolol #Presumed heart failure with preserved ejection fraction, chronic Last echo 07/26/2015?normal left ventricular systolic dysfunction with EF of 60%, mildly enlarged left atrium, mild MVI, mild TBI, trivial PVI, RVSP 31 mmHg. Cautious hydration, Lasix held Lisinopril held given PAULINA Metoprolol #Chronic anemia, at this time normocytic Actually appears somewhat higher than baseline, could be hemoconcentrated #Chronic hyponatremia Close to baseline, sodium on admission read as 122 however corrected for glucose it was 131 #DVT ppx: SCDs, apixaban Symone Cowart MD Charges/Coding Visit Charges Inpatient E&M: 03049 Subs Hosp L2
[2022-08-24 09:30] LABS: Anion Gap 14 (5-15); BUN 80 mg/dL (7-18); Calcium,Total 9.3 mg/dL (8.5-10.1); Chloride 100 mmol/L (98-107); Creatinine, Serum 2.22 mg/dL (0.55-1.02); EST Glomerular Filtration Rate 23 mL/min (>60); Est Glom Filt Rate - Afr Amer 27 mL/min (>60); Estimated Creatinine Clearance 15.51 ml/min; Glucose 243 mg/dL (74-106); Potassium 3.9 mmol/L (3.5-5.1); Sodium Level 135 mmol/L (136-145)
[2022-08-24] MEDS: Insulin Glargine-YFGN 100 UNIT/ML Pen SC (09:41)
--- NOTE | 2022-08-24 09:55 | CASEMGMT ---
RN CM MEASURER CM to room to meet with patient for initial transition planning/care coordination assessment. RN USSY introduced self and role at [facility]. Pt voices understanding and consents to assessment at this time. Pt resting in bed in no distress at this time. Dtr/POÁlvaro, Hermila, @ bedside and pt agreeable to her being present during assessment. Pt is A/O at this time and answers all questions appropriately. Care providers, pharmacy, and demographics verified/updated at this time. PCP: Dr Hubbard Specialists: Vascular surgeon @ [facility], Dr Acevedo-supervisor broadloom @ [facility], Dr Bay--[facility], podiatry. Preferred Pharmacy: [facility] Insurance: [facility] Prescription Benefit: yes Living Will/HPOA: Has both LW and HPOA, which is her daughter, Hermila LNOK: DtrHermila Living Arrangements: Lives alone in an apt w/6 steps to enter and is independent @ baseline. Plan is to d/c to Hermila's home and will stay there for awhile until ready to return to her apt. Hermila states they have an in-law suite at her home that pt may move into in the future, bur for now, pt will be in Hermila's home/FFSU w/no steps to enter. Hermila will assist pt w/any care needs and can assist w/medication set up as needed. Transportation: Pt states drives self and states no transportation concerns at this time. DME: States has the following DME: w/c, walker, canes, quad cane, BSC, grab bars, bed side-rail, RTS, shower chair, BP machine, functioning glucometer w/supplies. They state no need for further DME at this time. HHC/SNF: Hx of [facility] and has been to a SNF in [place]. Discussed options of HHC. Hermila and pt state they do not feel pt needs HHC at this time. She was made aware, if they decide once pt gets to her home that they would like HHC, to f/u with pt's PCP. She voices understanding. Pt and dtr wish for pt to discharge to dtr's home and state they have no concerns with her going home at time of discharge. CM to follow for any further discharge planning/needs. Pt and dtr voice no further concerns/needs at this time. Advised them to ask for CM if any further questions/concerns/needs arise. They voice understanding. PLAN: Discharge to dtr's home. Dtr states they will need insulin admin education. RN, Aparna, marifer. Dtr also provided /[facility] rac card/contact info. Estuardo WOODARD RN CM
[2022-08-24] MEDS: Ceftriaxone 1 GM/50 ML BAG IV (10:22)
[2022-08-24] MEDS: APIXABAN 2.5 MG TABLET PO ×2 (10:26→21:16)
[2022-08-24] MEDS: Pantoprazole Sodium 40 MG Tablet PO (10:27)
[2022-08-24] MEDS: Aspirin E.C. 81 MG Tablet PO (10:27)
[2022-08-24] MEDS: Metoprolol Tartrate 50 MG Tablet PO (10:27)
[2022-08-24] MEDS: Amiodarone 200 MG Tablet PO (10:27)
[2022-08-24] MEDS: Ferrous Sulfate 325 MG Tablet PO ×2 (10:27→16:54)
[2022-08-24 12:55] LABS: Bedside Glucose 209 mg/dL (74-106)
[2022-08-24 12:55] LABS: Bedside Glucose 227 mg/dL (74-106)
[2022-08-24 12:55] LABS: Bedside Glucose 293 mg/dL (74-106)
[2022-08-24 13:20] LABS: Anion Gap 13 (5-15); BUN 82 mg/dL (7-18); BUN/Creat Ratio 35.7 RATIO (10-20); Chloride 100 mmol/L (98-107); EST Glomerular Filtration Rate 22 mL/min (>60); Est Glom Filt Rate - Afr Amer 26 mL/min (>60); Estimated Creatinine Clearance 14.97 ml/min; Glucose 332 mg/dL (74-106); Potassium 4.2 mmol/L (3.5-5.1); Sodium Level 133 mmol/L (136-145)
[2022-08-24] MEDS: Insulin Lispro 100 UNIT/ML INSULN.PEN SC ×2 (16:52→21:23)
[2022-08-24] MEDS: Glucerna Shake 120 ML LIQUID PO (16:59)
[2022-08-24 17:16] LABS: Bedside Glucose 288 mg/dL (74-106)
[2022-08-24] MEDS: Atorvastatin Calcium 80 MG Tablet PO (21:16)
[2022-08-24] MEDS: Insulin Glargine-YFGN 100 UNIT/ML Pen 10 UNIT SC (21:19)
[2022-08-24 21:46] LABS: Bedside Glucose 418 mg/dL (74-106)
[2022-08-25] VITALS (11 sets, daily range): BP systolic 93–168; BP diastolic 50–73; PULSE 51–71; RESP 18–20; TEMP 36.4–36.9; O2SAT 96–100
[2022-08-25 04:23] LABS: Absolute Lymphocyte Count 1.29 X10^3/uL (0.83-4.51); Absolute Neutrophil Count 7.4 X10^3/uL (2.0-7.7); Basophil# 0.04 X10^3/uL; Basophil% 0.4 % (0-1); Eosinophil# 0.12 X10^3/uL; Eosinophils% 1.2 % (0-5); Hematocrit 30.9 % (37-47); Hemoglobin 9.4 g/dL (12.0-15.0); Lymphocyte # 1.29 X10^3/ul (0.83-4.51); Lymphocyte % 13.2 % (19-41); Mean Corp Hgb Conc 30.4 g/dL (32-36); Mean Corpuscular Hgb 25.3 pg (27.0-32.0); Mean Corpuscular Volume 83.1 fL (81-99); Mean Platelet Vol. 11.1 fl (6.2-12.0); Monocyte# 0.93 X10^3/uL; Monocyte% 9.5 % (0-10); NRBC Flagged by Analyzer 0 % (0-5); Neutrophil # 7.39 X10^3/uL (2.7-7.7); Neutrophil % 75.4 % (47-70); Platelet Count 274 K/mm3 (150-450); RBC Distribution Width CV 16.7 % (11.6-14.6); RBC Distribution Width SD 49.4 fl (35.1-43.9); Red Blood Count 3.72 M/mm3 (4.2-5.4); White Blood Count 9.8 K/mm3 (4.4-11.0)
[2022-08-25 04:59] LABS: ALB/GLOB Ratio 0.5 RATIO (0.9-2.4); AST(SGOT) 23 U/L (15-37); Alanine Aminotransfer ALT/SGPT 31 U/L (13-56); Albumin, Serum 2.6 g/dL (3.2-5.0); Alkaline Phosphatase 86 U/L (45-117); Anion Gap 12 (5-15); BUN 84 mg/dL (7-18); BUN/Creat Ratio 35.4 RATIO (10-20); Calcium,Total 9.1 mg/dL (8.5-10.1); Chloride 100 mmol/L (98-107); Creatinine, Serum 2.37 mg/dL (0.55-1.02); EST Glomerular Filtration Rate 21 mL/min (>60); Est Glom Filt Rate - Afr Amer 25 mL/min (>60); Estimated Creatinine Clearance 14.52 ml/min; Globulin 4.9 g/dL (2.2-4.2); Glucose 308 mg/dL (74-106); Protein, Total 7.5 g/dL (6.4-8.2); Sodium Level 132 mmol/L (136-145)
[2022-08-25] MEDS: Insulin Lispro 100 UNIT/ML INSULN.PEN SC ×3 (06:16→16:30)
[2022-08-25 06:40] LABS: Bedside Glucose 336 mg/dL (74-106)
--- NOTE | 2022-08-25 07:24 | PCM.PN.HOSP ---
Subjective Subjective DOS: 08/25/2022 CC: Had to be straight cathed again Doing fairly well this morning but was retaining urine again overnight and had to be straight cath. Eating well, no nausea or vomiting. No chest pain or shortness of breath. Glucoses remain uncontrolled. Reports good bowel movements. Denies other complaints this morning Objective Data Objective Data Vital Signs: Vital Signs Temp Pulse Resp BP Pulse Ox O2 Del Method 97.5 F L 52 L 18 93/64 96 Room Air 08/25/22 02:00 08/25/22 04:00 08/25/22 02:00 08/25/22 02:00 08/25/22 02:00 08/25/22 02:00 Oxygen Delivery Method Room Air Weight: 71.4 kg Body Mass Index (BMI) 29.3 Intake & Output: Intake and Output for Last 24 Hours 08/23/22 08/24/22 08/25/22 23:59 23:59 23:59 Intake Total 1063.52 / 1063.52 1502.20 / 1502.20 Output Total 520 / 520 375 / 375 Balance 1063.52 / 1063.52 982.20 / 982.20 -375 / -375 Lab / Micro Data Result Diagrams: 08/25/22 04:15 08/25/22 04:15 Labs: Laboratory Results - last 24 hr 08/24/22 04:30: Hemoglobin A1c 12.0 H 08/24/22 06:45: POC Glucose 227 H 08/24/22 07:30: POC Glucose 209 H 08/24/22 08:45: Sodium 135 L, Potassium 3.9, Chloride 100, Carbon Dioxide 21.0, Anion Gap 14, BUN 80 H, Creatinine 2.22 H, Estim Creat Clear Calc 15.51, Est GFR (MDRD) Af Amer 27 L, Est GFR (MDRD) Non-Af 23 L, BUN/Creatinine Ratio 36.0 H, Glucose 243 H, Calcium 9.3 08/24/22 12:30: Sodium 133 L, Potassium 4.2, Chloride 100, Carbon Dioxide 20.0 L, Anion Gap 13, BUN 82 H, Creatinine 2.30 H, Estim Creat Clear Calc 14.97, Est GFR (MDRD) Af Amer 26 L, Est GFR (MDRD) Non-Af 22 L, BUN/Creatinine Ratio 35.7 H, Glucose 332 H, Calcium 9.0 08/24/22 12:35: POC Glucose 293 H 08/24/22 16:49: POC Glucose 288 H 08/24/22 21:21: POC Glucose 418 H 08/25/22 04:15: WBC 9.8, RBC 3.72 L, Hgb 9.4 L, Hct 30.9 L, MCV 83.1, MCH 25.3 L, MCHC 30.4 L D, RDW Std Deviation 49.4 H, RDW Coeff of Marga 16.7 H, Plt Count 274, MPV 11.1, Immature Gran % (Auto) 0.300, Neut % (Auto) 75.4 H, Lymph % (Auto) 13.2 L, [place] % (Auto) 9.5, Eos % (Auto) 1.2, Baso % (Auto) 0.4, Absolute Neuts (auto) 7.4, Absolute Lymphs (auto) 1.29, Nucleated RBC % 0 08/25/22 04:15: Sodium 132 L, Potassium 4.0, Chloride 100, Carbon Dioxide 20.0 L, Anion Gap 12, BUN 84 H, Creatinine 2.37 H, Estim Creat Clear Calc 14.52, Est GFR (MDRD) Af Amer 25 L, Est GFR (MDRD) Non-Af 21 L, BUN/Creatinine Ratio 35.4 H, Glucose 308 H, Calcium 9.1, Total Bilirubin 0.50, AST 23, ALT 31, Alkaline Phosphatase 86, Total Protein 7.5, Albumin 2.6 L, Globulin 4.9 H, Albumin/Globulin Ratio 0.5 L 08/25/22 06:15: POC Glucose 336 H Micro: Microbiology 08/23/22 19:02 Blood Culture (Wb) - Anticubital Left Blood Culture - Preliminary GNR lactose paid search marketing analyst 08/23/22 17:20 Urine, Clean Catch Urine Culture - Preliminary GNR lactose paid search marketing analyst Physical Exam Const alert and no apparent distress Constitutional Narrative: Oriented HEENT normocephalic and head/scalp atraumatic Eyes Eyes Narrative: EOM grossly intact, anicteric Neck supple Resp normal respiratory effort and clear to auscultation bilaterally Cardio regular rate and regular rhythm GI soft to palpation, non-tender and non-distended Extremity Extremity Narrative: No edema appreciated Neuro moves all extremities Neuro Narrative: No overt focal deficits appreciated Psych Psych Narrative: Cooperative Assessment & Plan Assessment/Plan (1) DKA, type 2: PLAN: Plan Ms. Merlos is a 81-year-old female with past medical history of former heavy tobacco use, chronic anemia/iron deficiency anemia, chronic presumed diastolic congestive heart failure, hypertension, paroxysmal A. fib, PAD, CAD status post CABG, CKD stage IIIb, type II diabetes mellitus, and history of GI bleed who presented to [facility] 09/19/2022 with fatigue and malaise with a decrease in recent oral intake and suprapubic discomfort with increased urinary frequency and polydipsia and also noted elevated glucose for 2 to 3 days. #Acute complicated urinary tract infection with debility UA consistent with urinary tract infection Urine culture pending Blood cultures pending On Rocephin Has been retaining some urine, straight cath x1 and will have another postvoid this afternoon to assess for further retention PT/OT as well given worsened ability 08/25/2022: Gram-negative minh lactose paid search marketing analyst in urine and 1 out of 2 in blood. On Rocephin, await sensitivities. White count resolved #Type 2 diabetes mellitus with DKA and CKD stage IIIb Was admitted to ICU, hyperglycemia likely worsened by acute UTI Was not on insulin at home and is not a type I however was on SGLT2 inhibitor Gap closed with fluids and insulin Will stop both and start on sliding scale insulin as well as 5 units of glargine, suspect that infection contributed to her significant hyperglycemia and with improving infection glucose will decrease and requirements will be lower than anticipated. May be a good Victoza candidate as an outpatient as she wants to minimize injections but given kidney function and inability to tolerate SGLT2 inhibitor options may be limited A1c is pending Nutrition was consulted 08/25/2022: Reports that previously A1c was roughly 9, A1c here has been 12. And started on 5 units of glargine in the morning and 10 at bedtime however has continued to have significantly elevated glucose, will increase morning to 15, high-dose sliding scale insulin. Gap had closed. Will monitor today with intensified insulin management, BMP this afternoon. If glucose better controlled tomorrow will likely be able to DC with outpatient follow-up. Could consider Victoza on an outpatient basis but given A1c of 12 unfortunately may need insulin as well #Normocytic anemia Has appear. To have anemia since sometime in 2019, on admission hemoglobin was 11.6 and is down trended to 9.4. No active bleeding, suspect that she was very dehydrated and has been volume repleted but will obtain iron studies as well as B12 and folate. Discussed with the patient and she has always been anemic #CAD status post CABG Aspirin, statin, had a decreased beta-margy dose given low BP yesterday #PAULINA on CKD stage IIIb Avoid nephrotoxic agents, lisinopril held given PAULINA Baseline renal function 1.4?1.9 and on admission it was 2.78 (of note earlier in July it was also elevated over baseline) Trend BMP 08/25: Creatinine remains elevated, unclear if new baseline. Will obtain urine studies and kidney ultrasound. Could be if she is retaining and has reflux in the kidneys that this is what is worsening her kidney function. Unclear why she is retaining but could still be a urinary tract infection. Continue IV antibiotics #Paroxysmal atrial fibrillation On Eliquis and amiodarone Continue metoprolol with holding parameters #Presumed heart failure with preserved ejection fraction, chronic Last echo 07/26/2015?normal left ventricular systolic dysfunction with EF of 60%, mildly enlarged left atrium, mild MVI, mild TBI, trivial PVI, RVSP 31 mmHg. Cautious hydration, Lasix held Lisinopril held given PAULINA Metoprolol #Chronic anemia, at this time normocytic Actually appears somewhat higher than baseline, could be hemoconcentrated #Chronic hyponatremia Close to baseline, sodium on admission read as 122 however corrected for glucose it was 131 08/25: Given hyperglycemia continues to look falsely low. Continue to monitor #DVT ppx: SCDs, apixaban Symone Cowart MD Charges/Coding Visit Charges Inpatient E&M: 99406 Subs Hosp L2
--- NOTE | 2022-08-25 07:34 | US_ITS ---
STUDY: RENAL ULTRASOUND - COMPLETE REASON FOR EXAM: Female, 81 years old. Worsening kidney function TECHNIQUE: Ultrasound evaluation of the kidneys was performed with real-time and static lyon-scale imaging. COMPARISON: None. FINDINGS: RIGHT KIDNEY: Length: 10 cm Parenchyma: Limited detail. Mild cortical thinning. 1.3 x 1 x 1.3 cm cyst. Small 0.7 cm echogenic focus likely a calculus upper pole. Hydronephrosis: None. LEFT KIDNEY: Length: 8.3 cm Parenchyma: Limited detail. 1.3 x 1 x 1.1 cm cyst. Hydronephrosis: None. BLADDER: Not evaluated. US/Kidney and Bladder IMPRESSION: No hydronephrosis. Bladder not evaluated. Electronically Signed: Gypsy Jose MD at 8:00 EST ,
[2022-08-25 08:15] LABS: Ferritin 35 ng/mL (8-252); Iron 78 ug/dL (50-170); Iron Binding Capacity,Total 331 ug/dL (250-450)
[2022-08-25 08:30] LABS: Bedside Glucose 267 mg/dL (74-106)
[2022-08-25] MEDS: Insulin Glargine-YFGN 100 UNIT/ML Pen 15 UNIT SC ×2 (08:40→21:01)
[2022-08-25] MEDS: Amiodarone 200 MG Tablet PO (08:50)
[2022-08-25] MEDS: Aspirin E.C. 81 MG Tablet PO (08:50)
[2022-08-25] MEDS: Pantoprazole Sodium 40 MG Tablet PO (08:50)
[2022-08-25] MEDS: APIXABAN 2.5 MG TABLET PO ×2 (08:51→20:53)
[2022-08-25] MEDS: Metoprolol Tartrate 25 MG Tablet 12.5 MG PO ×2 (08:54→20:52)
[2022-08-25] MEDS: Ceftriaxone 1 GM/50 ML BAG IV (09:05)
[2022-08-25] MEDS: Glucerna Shake 120 ML LIQUID PO (11:30)
[2022-08-25] MEDS: Ferrous Sulfate 325 MG Tablet PO ×2 (11:31→16:31)
[2022-08-25 12:05] LABS: Bedside Glucose 381 mg/dL (74-106)
[2022-08-25 12:29] LABS: Urine Chloride < 10 mmol/L (Not Establ.); Urine Sodium 17 mmol/L (Not Establ.)
[2022-08-25 12:31] LABS: Osmolality, Urine 434 mOsm/KG
[2022-08-25] MEDS: Nystatin Powder 15gm Bottle 1 APPLIC TOPICAL ×2 (12:58→21:00)
[2022-08-25 13:40] LABS: Anion Gap 11 (5-15); BUN 79 mg/dL (7-18); BUN/Creat Ratio 30.4 RATIO (10-20); Calcium,Total 9.2 mg/dL (8.5-10.1); Chloride 101 mmol/L (98-107); EST Glomerular Filtration Rate 19 mL/min (>60); Est Glom Filt Rate - Afr Amer 23 mL/min (>60); Estimated Creatinine Clearance 13.24 ml/min; Glucose 404 mg/dL (74-106); Potassium 3.7 mmol/L (3.5-5.1); Sodium Level 132 mmol/L (136-145)
[2022-08-25 20:31] LABS: Bedside Glucose 434 mg/dL (74-106)
--- NOTE | 2022-08-25 20:50 | PCM.HOSP.N ---
Hospitalist Note Called for markedly elevated blood sugar greater than 400 at approximately 8:30 PM. Stat BMP pending as patient did present with DKA. Increase Lantus to 15 twice daily. Add Humalog 8 units Q8 and continue sliding scale. Will give 1 L LR as I do anticipate patient is having some ongoing osmotic diuresis with blood sugars that high and this also should help with bringing her sugars down some. A1c noted as greater than 12.
[2022-08-25] MEDS: Atorvastatin Calcium 80 MG Tablet PO (20:53)
[2022-08-25] MEDS: Insulin Lispro 100 UNIT/ML INSULN.PEN 20 UNIT SC (21:01)
[2022-08-25] MEDS: Lactated Ringers 1,000 ML 100 ML IV (21:01)
[2022-08-25 22:03] LABS: Anion Gap 10 (5-15); BUN 74 mg/dL (7-18); BUN/Creat Ratio 34.6 RATIO (10-20); Calcium,Total 9.4 mg/dL (8.5-10.1); Chloride 101 mmol/L (98-107); Creatinine, Serum 2.14 mg/dL (0.55-1.02); EST Glomerular Filtration Rate 24 mL/min (>60); Est Glom Filt Rate - Afr Amer 29 mL/min (>60); Estimated Creatinine Clearance 16.09 ml/min; Glucose 547 mg/dL (74-106); Potassium 4.4 mmol/L (3.5-5.1); Sodium Level 130 mmol/L (136-145)
[2022-08-25 23:01] LABS: Bedside Glucose 369 mg/dL (74-106)
[2022-08-25 23:01] LABS: Bedside Glucose 494 mg/dL (74-106)
[2022-08-26] VITALS (8 sets, daily range): BP systolic 106–118; BP diastolic 38–81; PULSE 52–88; RESP 18; TEMP 36.5–36.6; O2SAT 94–99
[2022-08-26] MEDS: Nystatin Powder 15gm Bottle 1 APPLIC TOPICAL ×2 (06:45→14:12)
[2022-08-26 07:06] LABS: Bedside Glucose 196 mg/dL (74-106)
[2022-08-26 08:26] LABS: Absolute Lymphocyte Count 1.63 X10^3/uL (0.83-4.51); Absolute Neutrophil Count 6.4 X10^3/uL (2.0-7.7); Basophil# 0.05 X10^3/uL; Basophil% 0.5 % (0-1); Eosinophil# 0.14 X10^3/uL; Eosinophils% 1.5 % (0-5); Hematocrit 31.8 % (37-47); Lymphocyte # 1.63 X10^3/ul (0.83-4.51); Lymphocyte % 17.7 % (19-41); Mean Corp Hgb Conc 31.4 g/dL (32-36); Mean Corpuscular Hgb 25.6 pg (27.0-32.0); Mean Corpuscular Volume 81.3 fL (81-99); Mean Platelet Vol. 11.3 fl (6.2-12.0); Monocyte# 0.92 X10^3/uL; NRBC Flagged by Analyzer 0 % (0-5); Neutrophil # 6.41 X10^3/uL (2.7-7.7); Neutrophil % 69.4 % (47-70); Platelet Count 244 K/mm3 (150-450); RBC Distribution Width CV 17.1 % (11.6-14.6); RBC Distribution Width SD 49.3 fl (35.1-43.9); Red Blood Count 3.91 M/mm3 (4.2-5.4); White Blood Count 9.2 K/mm3 (4.4-11.0)
[2022-08-26] MEDS: Insulin Lispro 100 UNIT/ML INSULN.PEN SC ×3 (08:44→17:28)
[2022-08-26] MEDS: Insulin Lispro 100 UNIT/ML INSULN.PEN 8 UNIT SC ×3 (08:45→17:29)
[2022-08-26 09:14] LABS: Anion Gap 12 (5-15); BUN 55 mg/dL (7-18); Calcium,Total 9.7 mg/dL (8.5-10.1); Chloride 103 mmol/L (98-107); Creatinine, Serum 1.62 mg/dL (0.55-1.02); EST Glomerular Filtration Rate 33 mL/min (>60); Est Glom Filt Rate - Afr Amer 39 mL/min (>60); Estimated Creatinine Clearance 21.25 ml/min; Glucose 222 mg/dL (74-106); Potassium 3.9 mmol/L (3.5-5.1); Sodium Level 135 mmol/L (136-145)
[2022-08-26] MEDS: APIXABAN 2.5 MG TABLET PO (10:43)
[2022-08-26] MEDS: Aspirin E.C. 81 MG Tablet PO (10:43)
[2022-08-26] MEDS: Metoprolol Tartrate 25 MG Tablet 12.5 MG PO (10:43)
[2022-08-26] MEDS: Pantoprazole Sodium 40 MG Tablet PO (10:43)
[2022-08-26] MEDS: Amiodarone 200 MG Tablet PO (10:43)
[2022-08-26] MEDS: Insulin Glargine-YFGN 100 UNIT/ML Pen 15 UNIT SC (10:48)
[2022-08-26] MEDS: 0.9% Saline Lock 10 ML Syringe IV (11:00)
[2022-08-26] MEDS: Ceftriaxone 1 GM/50 ML BAG IV (11:00)
[2022-08-26] MEDS: Ferrous Sulfate 325 MG Tablet PO ×2 (12:10→17:34)
[2022-08-26] MEDS: Glucerna Shake 120 ML LIQUID PO ×2 (12:14→17:42)
[2022-08-26 12:31] LABS: Bedside Glucose 249 mg/dL (74-106)
--- NOTE | 2022-08-26 18:12 | PCM.DC ---
Discharge Instructions Diet Discharge Diet: - (Please follow instructions given to you by nutrition) Activity Discharge Activity: Return to Normal Activity Follow Up Care Test Results: Test results from this visit will be discussed in further detail at your follow-up appointment, if applicable. Discharge Plan Admission Admit Date/Time: 08/23/22 18:57 Primary Reason for Your Visit: Elevated blood sugar, weakness, debility Attending Provider: Symone Cowart Primary Care Provider: Theo Hubbard Consulting Providers: An Hurley ; Marquise Leung Instructions Patient Instructions: Hypoglycemia (Low Blood Sugar), Injection Pens Dc, Diabetes Care Ch, Diabetes Coping Ch, Insulin and Type 2 Diabetes, ED Diabetes- Overview, ED Using an Injection Pen Additional Instructions / Restrictions: *Please take this with you to your next doctors appointment* ?Please do not take your Jardiance -Given your kidney function please hold your lisinopril until cleared to resume by your primary care physician ?Would recommend getting a BMP (lab work) within 3 to 5 days to monitor your kidney function ?You have been started on insulin. You will take 15 units of long-acting insulin (glargine) twice daily and you will take 8 units of short acting (aspart) in addition to sliding scale insulin with meals. ? It is important that you check your blood sugar every morning and that you check it before meals and doses sliding scale accordingly ?You will be given a prescription for glucometer, test strips and lancets. This paper prescription can be taken to the pharmacy of your choice. ?You take Lasix daily, with your elevated blood sugar and urinary frequency you have not required this. Would hold this and continue to check your weight daily, if you gain more than 2 pounds please call your primary care physician. At your follow-up you will likely be restarted on this ?You are noted to have a urinary tract infection, you will need to complete 10 days total of antibiotics. You will be discharged on Keflex, please take 500 mg 4 times a day for an additional 7 days?your insulin and Keflex were sent to the [facility] on [facility] in [facility] ?Continue your other home medications Your sliding scale is as follows: 150-199 mg/dl = 2 units 200-259 mg/dl = 4 units 260-324 mg/dl = 6 units 325-374 mg/dl = 8 units 375-409 mg/dl = 10 units 410-449 mg/dl = 11 units -Please call your primary care provider's office upon discharge to schedule a hospital follow up within 1 week. -For any concerning signs or symptoms please call 911 or proceed to the nearest emergency department Discharge Orders/Prescriptions Prescriptions: New insulin lispro [Humalog KwikPen Insulin] 100 unit/mL Insulin Pen See Protocol subcut ACHS Qty: 15 0RF Protocol: 4. Sliding Scale Insulin High-Med Dosing Condition: 150-199 mg/dl = 2 units Condition: 200-259 mg/dl = 4 units Condition: 260-324 mg/dl = 6 units Condition: 325-374 mg/dl = 8 units Condition: 375-409 mg/dl = 10 units Condition: 410-449 mg/dl = 11 units Condition: Greater than 449 call physician Protocol Text: - Use for Total Daily Dose of Insulin 56-80 units - Patient who are insulin resistant or septic HIGH MEDIUM DOSING ALGORITHM Rx Instructions: Take 8 units of short acting (insulin aspart) with meals in addition to the sliding scale insulin. Scale will be provided for you. Max 19 units at one time and Max 68 units daily insulin glargine [Lantus Solostar U-100 Insulin] 100 unit/mL (3 mL) insulin pen 15 unit subcut BID Qty: 15 0RF cephalexin 500 mg capsule 500 mg PO Q6H 7 Days Qty: 28 0RF Rx Instructions: To start 08/27/22 Continued atorvastatin 80 mg tablet 80 mg PO DAILY aspirin [Adult Low Dose Aspirin] 81 mg tablet,delayed release (DR/EC) 81 mg PO DAILY apixaban 5 mg tablet 2.5 mg PO BID Hold Instructions: Resume on 03/24/21. Hold until after your vascular intervention Label Comments: TAKE 1 TABLET BY MOUTH TWICE DAILY metoprolol tartrate 50 mg tablet 50 mg PO DAILY amiodarone 200 mg tablet 200 mg PO DAILY Label Comments: TAKE 1 TABLET BY MOUTH EVERY DAY ferrous sulfate 325 mg (65 mg iron) Tablet 325 mg PO 1200,1700 Qty: 60 0RF ascorbic acid (vitamin C) [Vitamin C] 500 mg tablet 500 mg PO BID Qty: 60 0RF Rx Instructions: Take with iron tablets pantoprazole [Protonix] 40 mg tablet,delayed release (DR/EC) 40 mg PO DAILY Qty: 30 0RF Held furosemide [Lasix] 20 mg tablet 40 mg PO DAILY Hold Instructions: Resume on 08/29/22. lisinopril 5 mg tablet 10 mg PO QHS Hold Instructions: Resume on 09/12/22. Given your kidney function please hold your lisinopril until cleared to resume by your primary care physician Label Comments: TAKE 1 TABLET BY MOUTH EVERY DAY Discontinued Jardiance 10 mg tablet 10 mg PO DAILY Other Ambulatory Orders: Glucometer (Routine) Timeframe: 1 Day Location: Determined by Patient Ordered By: Dr. Symone Cowart Referrals / Follow Up: Theo Hubbard MD [Primary Care Provider] - Within 1 Week Disposition Disposition (needs filled in before D/C Order can be placed): Home, Self Care
[2022-08-26 18:40] LABS: Bedside Glucose 233 mg/dL (74-106)
--- NOTE | 2022-08-26 19:03 | NURSING ---
spoke with Dr. Steinberg and Pharmacist. due to all pharmacies being closed at this time nurse Renetta instructed to send insulin pens and a few needles home with pt to given insulin tonight. instructed to give only the 15units of Glargine-YFGN tonight and to mixing picker tender scripts at [facility] first thing in the morning and follow sliding scale and standard unit orders.
--- NOTE | 2022-08-26 19:05 | PCM.DC.SUM ---
Providers Date of Admission: 08/23/22 Date of Discharge: 08/26/22 Primary Care Physician: Dr. Theo Hubbard MD Consultations 08/23/22 20:08 Consult: Rivet Passer / Pulmonary Medicine Routine Consulting Provider: Marquise Leung Reason for Consult: DKA EMERGENT Consult: No MD Notified: Yes Date Notified: 08/23/22 Time Notified: 19:02 Method of Notification: Text Reason For Visit: DKA Diagnosis Discharge Diagnosis (1) DKA, type 2: Status: Acute Code(s): E11.10 - Type 2 diabetes mellitus with ketoacidosis without coma Plan #Acute complicated urinary tract infection with debility #Type 2 diabetes mellitus with DKA and CKD stage IIIb #Normocytic anemia #CAD status post CABG #PAULINA on CKD stage IIIb #Paroxysmal atrial fibrillation #Presumed heart failure with preserved ejection fraction, chronic #Chronic anemia, at this time normocytic #Chronic hyponatremia Medications at Discharge Home Medications apixaban 5 mg tablet 2.5 mg PO BID blood thinner 02/17/20 aspirin 81 mg tablet,delayed release (Adult Low Dose Aspirin) 81 mg PO DAILY 05/11/20 atorvastatin 80 mg tablet 80 mg PO DAILY 05/11/20 furosemide 20 mg tablet (Lasix) 40 mg PO DAILY 05/11/20 metoprolol tartrate 50 mg tablet 50 mg PO DAILY heart 05/11/20 amiodarone 200 mg tablet 200 mg PO DAILY 03/13/21 ascorbic acid (vitamin C) 500 mg tablet (Vitamin C) 500 mg PO BID #60 tabs 03/15/21 ferrous sulfate 325 mg (65 mg iron) tablet 325 mg PO 1200,1700 #60 tabs 03/15/21 pantoprazole 40 mg tablet,delayed release (Protonix) 40 mg PO DAILY #30 tabs 03/15/21 lisinopril 5 mg tablet 10 mg PO QHS 08/23/22 cephalexin 500 mg capsule 500 mg PO Q6H 7 days #28 caps 08/26/22 insulin glargine 100 unit/mL (3 mL) subcutaneous pen (Lantus Solostar U-100 Insulin) 15 unit (0.15 mL) subcut BID #15 mL 08/26/22 insulin lispro 100 unit/mL subcutaneous pen (Humalog KwikPen (U-100) Insulin) See Protocol subcut ACHS #15 mL 08/26/22 Hospital Course Summary of Care Provided Minutes Spent on Discharge: 35 Hospital Course: Ms. Merlos is a 81-year-old female with past medical history of former heavy tobacco use, chronic anemia/iron deficiency anemia, chronic presumed diastolic congestive heart failure, hypertension, paroxysmal A. fib, PAD, CAD status post CABG, CKD stage IIIb, type II diabetes mellitus, and history of GI bleed who presented to [facility] 09/19/2022 with fatigue and malaise with a decrease in recent oral intake and suprapubic discomfort with increased urinary frequency and polydipsia and also noted elevated glucose for 2 to 3 days. She was found to have both DKA and UTI. A1c was 12. Her SGLT2 inhibitor was held and she was started on insulin which was titrated. Could possibly be a good Victoza candidate as well to minimize insulin need as an outpatient. She was seen by nutrition while on inpatient. She additionally had a UTI, E. coli, which also grew in 1 out of 2 blood cultures. She was treated with Rocephin and discharged with Keflex. Did well. Did have some urinary retention early on but this resolved with antibiotics and post void prior to discharge did not reveal any retention. On day of d/c pharmacy closed but able to provide insulin pens for patient. Patient and family (going to live with daughter) were comfortable with that and with plan to medicinal plant picker her medications in the AM as no other medications due night of d/c. Discharge instructions for patient as follows: *Please take this with you to your next doctors appointment* ?Please do not take your Jardiance -Given your kidney function please hold your lisinopril until cleared to resume by your primary care physician ?Would recommend getting a BMP (lab work) within 3 to 5 days to monitor your kidney function ?You have been started on insulin.? You will take 15 units of long-acting insulin (glargine) twice daily and you will take 8 units of short acting (aspart) in addition to sliding scale insulin with meals. ? It is important that you check your blood sugar every morning and that you check it before meals and doses sliding scale accordingly ?You will be given a prescription for glucometer, test strips and lancets.? This paper prescription can be taken to the pharmacy of your choice. ?You take Lasix daily, with your elevated blood sugar and urinary frequency you have not required this.? Would hold this and continue to check your weight daily, if you gain more than 2 pounds please call your primary care physician.? At your follow-up you will likely be restarted on this ?You are noted to have a urinary tract infection, you will need to complete 10 days total of antibiotics.? You will be discharged on Keflex, please take 500 mg 4 times a day for an additional 7 days?your insulin and Keflex were sent to the [facility] on [facility] [address] [facility] ?Continue your other home medications Your sliding scale is as follows: 150-199 mg/dl = 2 units 200-259 mg/dl = 4 units 260-324 mg/dl = 6 units 325-374 mg/dl = 8 units 375-409 mg/dl = 10 units 410-449 mg/dl = 11 units -Please call your primary care provider's office upon discharge to schedule a hospital follow up within 1 week. -For any concerning signs or symptoms please call 911 or proceed to the nearest emergency department Physical Exam Const alert and no apparent distress Constitutional Narrative: Oriented HEENT normocephalic and head/scalp atraumatic Eyes Eyes Narrative: EOM grossly intact, anicteric Neck supple Resp normal respiratory effort and clear to auscultation bilaterally Cardio regular rate and regular rhythm GI soft to palpation, non-tender and non-distended Extremity Extremity Narrative: No edema appreciated Neuro moves all extremities Neuro Narrative: No overt focal deficits appreciated Psych Psych Narrative: Cooperative Weight / BMI Weight Weight: 69.7 kg Body Mass Index (BMI) 29.3 ABG / Lab / Microbiology Data Result Diagrams: 08/26/22 08:10 08/26/22 08:10 Laboratory: Laboratory Results - last 24 hr 08/25/22 16:27: POC Glucose 434 H 08/25/22 20:34: POC Glucose 494 H* 08/25/22 21:00: Sodium 130 L, Potassium 4.4, Chloride 101, Carbon Dioxide 19.0 L, Anion Gap 10, BUN 74 H, Creatinine 2.14 H, Estim Creat Clear Calc 16.09, Est GFR (MDRD) Af Amer 29 L, Est GFR (MDRD) Non-Af 24 L, BUN/Creatinine Ratio 34.6 H, Glucose 547 H*, Calcium 9.4 08/25/22 22:39: POC Glucose 369 H 08/26/22 06:44: POC Glucose 196 H 08/26/22 08:10: WBC 9.2, RBC 3.91 L, Hgb 10.0 L, Hct 31.8 L, MCV 81.3, MCH 25.6 L, MCHC 31.4 L, RDW Std Deviation 49.3 H, RDW Coeff of Marga 17.1 H, Plt Count 244, MPV 11.3, Immature Gran % (Auto) 0.900, Neut % (Auto) 69.4, Lymph % (Auto) 17.7 L, Peach % (Auto) 10.0, Eos % (Auto) 1.5, Baso % (Auto) 0.5, Absolute Neuts (auto) 6.4, Absolute Lymphs (auto) 1.63, Nucleated RBC % 0 08/26/22 08:10: Sodium 135 L, Potassium 3.9, Chloride 103, Carbon Dioxide 20.0 L, Anion Gap 12, BUN 55 H, Creatinine 1.62 H, Estim Creat Clear Calc 21.25, Est GFR (MDRD) Af Amer 39 L, Est GFR (MDRD) Non-Af 33 L, BUN/Creatinine Ratio 34.0 H, Glucose 222 H, Calcium 9.7 08/26/22 12:01: POC Glucose 249 H 08/26/22 17:19: POC Glucose 233 H Microbiology: Microbiology 08/23/22 19:00 Blood Culture (Wb) - Anticubital Right Blood Culture - Preliminary No growth in 48 hours. 08/23/22 19:02 Blood Culture (Wb) - Anticubital Left Blood Culture - Final Escherichia coli 08/23/22 17:20 Urine, Clean Catch Urine Culture - Final Escherichia coli Radiography Diagnostic Testing: Radiology Impression Renal Ultrasound 08/25/22 07:34 IMPRESSION: No hydronephrosis. Bladder not evaluated. Electronically Signed: Gypsy Jose MD at 8:00 EST , D/C Instructions Discharge Diet: - (Please follow instructions given to you by nutrition) Meaningful Use Info Meaningful Use Diagnoses (Choose all that apply): None applicable Discharge Plan Admission Admit Date/Time: 08/23/22 18:57 Primary Reason for Your Visit: Elevated blood sugar, weakness, debility Attending Provider: Symone Cowart Primary Care Provider: Theo Hubbard Consulting Providers: An Hurley ; Marquise Leung Instructions Patient Instructions: Hypoglycemia (Low Blood Sugar), Injection Pens Dc, Diabetes Care Ch, Diabetes Coping Ch, Insulin and Type 2 Diabetes, ED Diabetes- Overview, ED Using an Injection Pen Additional Instructions / Restrictions: *Please take this with you to your next doctors appointment* ?Please do not take your Jardiance -Given your kidney function please hold your lisinopril until cleared to resume by your primary care physician ?Would recommend getting a BMP (lab work) within 3 to 5 days to monitor your kidney function ?You have been started on insulin. You will take 15 units of long-acting insulin (glargine) twice daily and you will take 8 units of short acting (aspart) in addition to sliding scale insulin with meals. ? It is important that you check your blood sugar every morning and that you check it before meals and doses sliding scale accordingly ?You will be given a prescription for glucometer, test strips and lancets. This paper prescription can be taken to the pharmacy of your choice. ?You take Lasix daily, with your elevated blood sugar and urinary frequency you have not required this. Would hold this and continue to check your weight daily, if you gain more than 2 pounds please call your primary care physician. At your follow-up you will likely be restarted on this ?You are noted to have a urinary tract infection, you will need to complete 10 days total of antibiotics. You will be discharged on Keflex, please take 500 mg 4 times a day for an additional 7 days?your insulin and Keflex were sent to the [facility] on [facility] [address] [facility] ?Continue your other home medications Your sliding scale is as follows: 150-199 mg/dl = 2 units 200-259 mg/dl = 4 units 260-324 mg/dl = 6 units 325-374 mg/dl = 8 units 375-409 mg/dl = 10 units 410-449 mg/dl = 11 units -Please call your primary care provider's office upon discharge to schedule a hospital follow up within 1 week. -For any concerning signs or symptoms please call 911 or proceed to the nearest emergency department Discharge Orders/Prescriptions Prescriptions: New insulin lispro [Humalog KwikPen Insulin] 100 unit/mL Insulin Pen See Protocol subcut ACHS Qty: 15 0RF Protocol: 4. Sliding Scale Insulin High-Med Dosing Condition: 150-199 mg/dl = 2 units Condition: 200-259 mg/dl = 4 units Condition: 260-324 mg/dl = 6 units Condition: 325-374 mg/dl = 8 units Condition: 375-409 mg/dl = 10 units Condition: 410-449 mg/dl = 11 units Condition: Greater than 449 call physician Protocol Text: - Use for Total Daily Dose of Insulin 56-80 units - Patient who are insulin resistant or septic HIGH MEDIUM DOSING ALGORITHM Rx Instructions: Take 8 units of short acting (insulin aspart) with meals in addition to the sliding scale insulin. Scale will be provided for you. Max 19 units at one time and Max 68 units daily insulin glargine [Lantus Solostar U-100 Insulin] 100 unit/mL (3 mL) insulin pen 15 unit subcut BID Qty: 15 0RF cephalexin 500 mg capsule 500 mg PO Q6H 7 Days Qty: 28 0RF Rx Instructions: To start 08/27/22 Continued atorvastatin 80 mg tablet 80 mg PO DAILY aspirin [Adult Low Dose Aspirin] 81 mg tablet,delayed release (DR/EC) 81 mg PO DAILY apixaban 5 mg tablet 2.5 mg PO BID Hold Instructions: Resume on 03/24/21. Hold until after your vascular intervention Label Comments: TAKE 1 TABLET BY MOUTH TWICE DAILY metoprolol tartrate 50 mg tablet 50 mg PO DAILY amiodarone 200 mg tablet 200 mg PO DAILY Label Comments: TAKE 1 TABLET BY MOUTH EVERY DAY ferrous sulfate 325 mg (65 mg iron) Tablet 325 mg PO 1200,1700 Qty: 60 0RF ascorbic acid (vitamin C) [Vitamin C] 500 mg tablet 500 mg PO BID Qty: 60 0RF Rx Instructions: Take with iron tablets pantoprazole [Protonix] 40 mg tablet,delayed release (DR/EC) 40 mg PO DAILY Qty: 30 0RF Held furosemide [Lasix] 20 mg tablet 40 mg PO DAILY Hold Instructions: Resume on 08/29/22. lisinopril 5 mg tablet 10 mg PO QHS Hold Instructions: Resume on 09/12/22. Given your kidney function please hold your lisinopril until cleared to resume by your primary care physician Label Comments: TAKE 1 TABLET BY MOUTH EVERY DAY Discontinued Jardiance 10 mg tablet 10 mg PO DAILY Other Ambulatory Orders: Glucometer (Routine) Timeframe: 1 Day Location: Determined by Patient Ordered By: Dr. Symone Cowart Referrals / Follow Up: Theo Hubbard MD [Primary Care Provider] - Within 1 Week Disposition Disposition (needs filled in before D/C Order can be placed): Home, Self Care Charges/Coding Visit Charges Inpatient E&M: 10181 Disch Hosp
--- NOTE | 2022-08-26 20:03 | NURSING ---
1950 patient and family given insulin pen(short acting) for home administration. Kaleb Vaughn RN
[2022-08-27 08:17] LABS: Vitamin B12 1225 pg/mL (211-911)
== END 2022-08-26 19:50 | disposition home or self-care (01) | DRG 638 ==
LOC: ED 18:57 → ICU 19:10 → MS3 08-25 14:18
PROVIDERS: Internal Medicine; Admitting Provider Family Medicine; Emergency Provider Emergency Medicine; PCP Family Medicine; Visit Provider Internal Medicine
DX: E11.10 Type 2 diabetes mellitus with ketoacidosis without coma (principal); N17.9 Acute kidney failure, unspecified; I13.0 Hypertensive heart and chronic kidney disease with heart failure and stage 1 through stage 4 chronic kidney disease, or unspecified chronic kidney disease; N39.0 Urinary tract infection, site not specified; E87.1 Hypo-osmolality and hyponatremia; I50.32 Chronic diastolic (congestive) heart failure; E11.65 Type 2 diabetes mellitus with hyperglycemia; B96.20 Unspecified Escherichia coli [E. coli] as the cause of diseases classified elsewhere; E11.22 Type 2 diabetes mellitus with diabetic chronic kidney disease; E11.51 Type 2 diabetes mellitus with diabetic peripheral angiopathy without gangrene; I48.0 Paroxysmal atrial fibrillation; N18.32 Chronic kidney disease, stage 3b; Z79.4 Long term (current) use of insulin; D50.9 Iron deficiency anemia, unspecified; E78.00 Pure hypercholesterolemia, unspecified; I25.10 Atherosclerotic heart disease of native coronary artery without angina pectoris; R33.9 Retention of urine, unspecified; Z79.01 Long term (current) use of anticoagulants; Z79.82 Long term (current) use of aspirin; Z87.891 Personal history of nicotine dependence; Z95.1 Presence of aortocoronary bypass graft
CPT/HCPCS: 36415; 76770; 80048; 80053; 81001; 82436; 82570; 82607; 82728; 82746; 82962; 83036; 83540; 83550; 83605; 83735; 83935; 84100; 84133; 84300; 85025; 87040; 87077; 87086; 87088; 87186; 87635; 93005; 94762; 97110; 97116; 97162; 97166; 97530; 97535; 97802; 99251; 99284; J7030; J7120; A4216; G0463; U0003; U0005

== ENCOUNTER 2022-09-04 21:53 | Emergency (ER) | payer MEDICARE, SELFPAY ==
[2022-09-04 21:55] VITALS: BP 189/74; PULSE 70; RESP 16; TEMP 36.8; O2SAT 95; BMI 30.6
--- NOTE | 2022-09-04 22:14 | EKG12_ITS ---
Test Reason : DYSRHYTHMIA Blood Pressure : / mmHG Vent. Rate : 065 BPM Atrial Rate : 064 BPM P-R Int : 000 ms QRS Dur : 074 ms QT Int : 426 ms P-R-T Axes : 000 004 011 degrees QTc Int : 443 ms Junctional rhythm Nonspecific ST and T wave abnormality Abnormal ECG Confirmed by SUJATHA COLON, EZ ([id number]), telegraph editor SHRUTI HEREDIA ([id number]) on 09/05/2022 2:42:52 PM Referred By: INDIO Confirmed By:EZ SOLARES MD
[2022-09-04 22:15] VITALS: O2SAT 93
--- NOTE | 2022-09-04 22:31 | RAD_ITS ---
STUDY: X-RAY CHEST REASON FOR EXAM: Female, 81 years old. Short of breath. TECHNIQUE: AP COMPARISON: 02/17/2020 CXR FINDINGS: Interstitial and vascular prominence bilaterally, mild, but new compared to prior. Cardiomegaly and atherosclerosis of the thoracic aorta again demonstrated. Mild left basilar atelectasis. No evidence of pneumothorax. Surgical clips overlie the left upper lung, new. RAD/Chest 1 View (Portable) IMPRESSION: Mild CHF with interstitial edema and vascular congestion. Electronically Signed: Casye Lindsey MD at 23:44 EST Reading Location ID and State: [facility] / [place] Tel , Service support ,
--- NOTE | 2022-09-04 22:59 | EX.ED.DYSGE1 ---
HPI History of Present Illness Chief Complaint: Shortness of Breath Narrative Narrative: Patient is a 81-year-old female with a history of insulin-dependent diabetes as well as peripheral arterial disease congestive heart failure and atrial fibrillation. She was recently admitted to the hospital for approximately 5 days secondary to DKA. Patient states that in the last 1 to 2 days she has noticed congestion drainage and mild cough. She states she has been having increased shortness of breath as well. She states this evening she just transferred from her bed to her potty chair and with this was severely short of breath and therefore decided to come in for evaluation based on the worsening symptoms. [facility] Medical History Acute hyponatremia Acute kidney injury superimposed on chronic kidney disease Acute prerenal azotemia Anemia Colles' fracture of left radius Congestive heart failure (CHF) Coronary artery disease Diabetes DKA, type 2 FH: coronary artery bypass surgery High cholesterol PAD (peripheral artery disease) PAF (paroxysmal atrial fibrillation) Stage 3b chronic kidney disease Home Medications apixaban 5 mg tablet 2.5 mg PO BID blood thinner 02/17/20 [History Last Taken 02/17/20] aspirin 81 mg tablet,delayed release (Adult Low Dose Aspirin) 81 mg PO DAILY 05/11/20 [History Last Taken Unknown] atorvastatin 80 mg tablet 80 mg PO DAILY 05/11/20 [History Last Taken Unknown] furosemide 20 mg tablet (Lasix) 40 mg PO DAILY 05/11/20 [History Last Taken Unknown] metoprolol tartrate 50 mg tablet 50 mg PO DAILY heart 05/11/20 [History Last Taken Unknown] amiodarone 200 mg tablet 200 mg PO DAILY 03/13/21 [History Last Taken Unknown] ascorbic acid (vitamin C) 500 mg tablet (Vitamin C) 500 mg PO BID #60 tabs 03/15/21 [Rx Last Taken Unknown] ferrous sulfate 325 mg (65 mg iron) tablet 325 mg PO 1200,1700 #60 tabs 03/15/21 [Rx Last Taken Unknown] pantoprazole 40 mg tablet,delayed release (Protonix) 40 mg PO DAILY #30 tabs 03/15/21 [Rx Last Taken Unknown] lisinopril 5 mg tablet 10 mg PO QHS 08/23/22 [History Last Taken Unknown] cephalexin 500 mg capsule 500 mg PO Q6H 7 days #28 caps 08/26/22 [Rx Last Taken Unknown] insulin glargine 100 unit/mL (3 mL) subcutaneous pen (Lantus Solostar U-100 Insulin) 15 unit (0.15 mL) subcut BID #15 mL 08/26/22 [Rx Last Taken Unknown] insulin lispro 100 unit/mL subcutaneous pen (Humalog KwikPen (U-100) Insulin) See Protocol subcut ACHS #15 mL 08/26/22 [Rx Last Taken Unknown] Allergy/AdvReac Type Severity Reaction Status Date / Time No Known Allergies Allergy Verified 09/04/22 22:10 Surgical History History of appendectomy History of surgery on left wrist Hx of heart bypass surgery S/P arteriogram of extremity S/P cataract extraction S/P right heart catheterization 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 An Hurley MD) household members: none Smoking Status: Former smoker how long ago did patient quit smoking: Smoked 1-3 ppd from 21 until quit 1 yr prior (2020). alcohol intake: never substance use type: does not use ROS ROS ED Constitutional Constitutional ED: Denies chills or fever(s) ENT ENT ED: Reports rhinorrhea; Denies sore throat Cardiovascular Cardiovascular: Denies chest pain Respiratory/Chest Respiratory/Chest: Reports cough, dyspnea and dyspnea on exertion Gastrointestinal Gastrointestinal: Denies abdominal pain, diarrhea, nausea or vomiting Genitourinary Genitourinary ED: Denies dysuria Musculoskeletal Musculoskeletal: Denies myalgias Integumentary Denies rash Neurologic Neurologic: Denies headache(s) Hematologic/Lymphatic Hematologic/Lymphatic: Reports easy bleeding and easy bruising EXAM Physical Exam Const Vital Signs: 09/04/22 21:55 09/04/22 22:15 09/04/22 23:58 Temperature 98.3 F Temperature Source Temporal Pulse Rate 70 61 Respiratory Rate 16 18 Respiratory Effort Short of Breath Labored Respiratory Depth Shallow Respiratory Pattern Normal Blood Pressure 189/74 H 128/56 H Blood Pressure Mean 112 80 Pulse Ox 95 91 Oxygen Delivery Method Room Air Room Air Room Air Positive well nourished and well developed General Appearance ED: well developed and pallor HEENT Reports dry mucous membranes Mouth ED: Yes dry mucous membranes Mouth: dry mucous membranes Eyes PERRL and EOMs intact bilaterally General Eye ED: Yes pale conjunctiva Neck supple and no JVD Chest Wall palpation of chest normal Resp Resp Narrative: Patient has mild increased work of breathing with accessory muscle use and mild tachypnea. Breath sounds are diminished throughout but overall clear to auscultation Cardio regular rate and regular rhythm Rate: other Other Details: Radial pulses are plus 2 out of 4 bilaterally are equal and symmetric GI normal to inspection, nondistended, normoactive bowel sounds, non-tender and non-distended GI Narrative: No voluntary guarding or pulsatile mass. No fluid wave noted Auscultation: normoactive bowel sounds Palpation: soft Extremity Extremity Narrative: Trace edema to the bilateral lower extremities Neuro oriented x3 and CN's II-XII intact bilaterally Sensorium / Orientation: alert Psych mental status grossly normal Skin no rashes or lesions noted General Skin Exam: pallor MDM MDM MDM Narrative Medical decision making narrative: Patient presented to the ER with mild increased work of breathing but still satting in the low to mid 90s on room air. With her significant past medical history there was concern she could be short of breath from severe anemia congestive heart failure or secondary infection or even return of DKA. A work-up was obtained which showed her creatinine approaching normal at 1.13. However her proBNP is elevated approximately 580 and chest x-ray does show vascular congestion changes consistent with CHF. I did elect to perform a D-dimer as patient was recently hospitalized and it is elevated. However she is not tachycardic she has no chest pain and she is on Eliquis already. I discussed patient and family the possibility of a CTA but as they have concerned that the contrast could lead to worsening kidney function and my clinical suspicion for PE is low especially as we have a reason for the shortness of breath and the heart failure they do not want to perform. The patient was ambulated and her pulse ox remained 92 to 93% on room air with ambulation indicating no need for supplemental oxygen. Therefore patient will be given IV Lasix in the ER and can be discharged and can contact her family doctor to discuss restarting her diuretic Lab Data Attestation: I reviewed the patient's lab results. Labs: Laboratory Results - last 24 hr 09/04/22 09/04/22 09/04/22 23:20 23:20 23:20 WBC RBC Hgb Hct MCV MCH MCHC RDW Std Deviation RDW Coeff of Marga Plt Count MPV Immature Gran % (Auto) Neut % (Auto) Lymph % (Auto) [place] % (Auto) Eos % (Auto) Baso % (Auto) Absolute Neuts (auto) Absolute Lymphs (auto) Nucleated RBC % Anisocytosis Amol Cells D-Dimer Quant (PE/DVT) 1.18 H* Sodium 139 Potassium 4.5 Chloride 110 H Carbon Dioxide 21.0 Anion Gap 8 BUN 19 H Creatinine 1.13 H Estim Creat Clear Calc 30.46 Est GFR (MDRD) Af Amer 60 Est GFR (MDRD) Non-Af 49 L BUN/Creatinine Ratio 16.8 Glucose 62 L Calcium 9.0 Magnesium 2.1 B-Natriuretic Peptide 576.6 H Urine Color Urine Clarity Urine pH Ur Specific [place] Urine Protein Urine Glucose (UA) Urine Ketones Urine Occult Blood Urine Nitrite Urine Bilirubin Urine Urobilinogen Ur Leukocyte Esterase Urine RBC Urine WBC Ur Squamous Epith Cells Urine Bacteria Urine Mucus 09/04/22 09/05/22 23:20 00:10 WBC 11.6 H RBC 3.47 L Hgb 9.5 L Hct 30.1 L MCV 86.7 MCH 27.4 MCHC 31.6 L RDW Std Deviation 65.1 H RDW Coeff of Marga 21.5 H Plt Count 281 MPV 10.1 Immature Gran % (Auto) 0.800 Neut % (Auto) 70.0 Lymph % (Auto) 15.5 L [place] % (Auto) 11.9 H Eos % (Auto) 1.3 Baso % (Auto) 0.5 Absolute Neuts (auto) 8.2 H Absolute Lymphs (auto) 1.80 Nucleated RBC % 0 Anisocytosis 2+ [place] Cells 1+ D-Dimer Quant (PE/DVT) Sodium Potassium Chloride Carbon Dioxide Anion Gap BUN Creatinine Estim Creat Clear Calc Est GFR (MDRD) Af Amer Est GFR (MDRD) Non-Af BUN/Creatinine Ratio Glucose Calcium Magnesium B-Natriuretic Peptide Urine Color Yellow Urine Clarity Clear Urine pH 6.0 Ur Specific [place] 1.010 Urine Protein 30 H Urine Glucose (UA) Normal Urine Ketones Negative Urine Occult Blood Negative Urine Nitrite Negative Urine Bilirubin Negative Urine Urobilinogen Normal Ur Leukocyte Esterase 25 H Urine RBC 0 SEEN Urine WBC 0 SEEN Ur Squamous Epith Cells 0 SEEN Urine Bacteria 0 SEEN Urine Mucus 0 SEEN Radiography Diagnostic Testing: Clinical Impression(s) from Imaging Studies Chest X-Ray 09/04/22 22:31 IMPRESSION: Mild CHF with interstitial edema and vascular congestion. Electronically Signed: Casey Lindsey MD at 23:44 EST Reading Location ID and State: [address] [place] [address] Tel , Service support , 1 view chest x-ray as interpreted by the emergency medicine physician reveals mild CHF with vascular congestion Discharge Plan Triage Chief Complaint: Shortness of Breath ED Provider: Darell Casey Dx/Rx/DC Orders Clinical Impression: Acute exacerbation of CHF (congestive heart failure), Diabetes, Current use of [employer] anticoagulation Instructions: ED Heart Failure, Congestive (CHF) Prescriptions: No Action furosemide [Lasix] 20 mg tablet 40 mg PO DAILY Hold Instructions: Resume on 08/29/22. atorvastatin 80 mg tablet 80 mg PO DAILY aspirin [Adult Low Dose Aspirin] 81 mg tablet,delayed release (DR/EC) 81 mg PO DAILY apixaban 5 mg tablet 2.5 mg PO BID Hold Instructions: Resume on 03/24/21. Hold until after your vascular intervention Label Comments: TAKE 1 TABLET BY MOUTH TWICE DAILY metoprolol tartrate 50 mg tablet 50 mg PO DAILY amiodarone 200 mg tablet 200 mg PO DAILY Label Comments: TAKE 1 TABLET BY MOUTH EVERY DAY ferrous sulfate 325 mg (65 mg iron) Tablet 325 mg PO 1200,1700 Qty: 60 0RF ascorbic acid (vitamin C) [Vitamin C] 500 mg tablet 500 mg PO BID Qty: 60 0RF Rx Instructions: Take with iron tablets pantoprazole [Protonix] 40 mg tablet,delayed release (DR/EC) 40 mg PO DAILY Qty: 30 0RF lisinopril 5 mg tablet 10 mg PO QHS Hold Instructions: Resume on 09/12/22. Given your kidney function please hold your lisinopril until cleared to resume by your primary care physician Label Comments: TAKE 1 TABLET BY MOUTH EVERY DAY insulin lispro [Humalog KwikPen Insulin] 100 unit/mL Insulin Pen See Protocol subcut ACHS Qty: 15 0RF Protocol: 4. Sliding Scale Insulin High-Med Dosing Condition: 150-199 mg/dl = 2 units Condition: 200-259 mg/dl = 4 units Condition: 260-324 mg/dl = 6 units Condition: 325-374 mg/dl = 8 units Condition: 375-409 mg/dl = 10 units Condition: 410-449 mg/dl = 11 units Condition: Greater than 449 call physician Protocol Text: - Use for Total Daily Dose of Insulin 56-80 units - Patient who are insulin resistant or septic HIGH MEDIUM DOSING ALGORITHM Rx Instructions: Take 8 units of short acting (insulin aspart) with meals in addition to the sliding scale insulin. Scale will be provided for you. Max 19 units at one time and Max 68 units daily insulin glargine [Lantus Solostar U-100 Insulin] 100 unit/mL (3 mL) insulin pen 15 unit subcut BID Qty: 15 0RF cephalexin 500 mg capsule 500 mg PO Q6H 7 Days Qty: 28 0RF Rx Instructions: To start 08/27/22 Primary Care Provider: Theo Hubbard Referrals: Theo Hubbard MD [Primary Care Provider] - Activity Restrictions/Additional Instructions: Please contact your family doctor and discuss restarting your Lasix based on your shortness of breath and labs and x-rays showing changes consistent with heart failure. If you have any further concerns please return to the ER for repeat evaluation Disposition Disposition: Home, Self Care
[2022-09-04 23:48] LABS: Absolute Neutrophil Count 8.2 X10^3/uL (2.0-7.7); Basophil# 0.06 X10^3/uL; Basophil% 0.5 % (0-1); Eosinophil# 0.15 X10^3/uL; Eosinophils% 1.3 % (0-5); Hematocrit 30.1 % (37-47); Hemoglobin 9.5 g/dL (12.0-15.0); Lymphocyte % 15.5 % (19-41); Mean Corp Hgb Conc 31.6 g/dL (32-36); Mean Corpuscular Hgb 27.4 pg (27.0-32.0); Mean Corpuscular Volume 86.7 fL (81-99); Mean Platelet Vol. 10.1 fl (6.2-12.0); Monocyte# 1.38 X10^3/uL; Monocyte% 11.9 % (0-10); NRBC Flagged by Analyzer 0 % (0-5); Neutrophil # 8.15 X10^3/uL (2.7-7.7); POSITIVE MORPHOLOGY YES; Platelet Count 281 K/mm3 (150-450); RBC Distribution Width CV 21.5 % (11.6-14.6); RBC Distribution Width SD 65.1 fl (35.1-43.9); Red Blood Count 3.47 M/mm3 (4.2-5.4); White Blood Count 11.6 K/mm3 (4.4-11.0)
[2022-09-04 23:53] LABS: Anion Gap 8 (5-15); BUN 19 mg/dL (7-18); BUN/Creat Ratio 16.8 RATIO (10-20); Chloride 110 mmol/L (98-107); Creatinine, Serum 1.13 mg/dL (0.55-1.02); Differential Indicated SCAN CRITERIA MET; EST Glomerular Filtration Rate 49 mL/min (>60); Est Glom Filt Rate - Afr Amer 60 mL/min (>60); Estimated Creatinine Clearance 30.46 ml/min; Glucose 62 mg/dL (74-106); Magnesium 2.1 mg/dL (1.6-2.6); Potassium 4.5 mmol/L (3.5-5.1); Sodium Level 139 mmol/L (136-145)
[2022-09-04 23:54] LABS: D-Dimer Quantitative (DVT/PE) 1.18 FEU/ug/m (0.27-0.49)
[2022-09-04 23:58] VITALS: BP 128/56; PULSE 61; RESP 18; O2SAT 91
[2022-09-05 00:01] LABS: Anisocytosis 2+; Burr Cells 1+
[2022-09-05 00:09] LABS: BNP,B-Type NATRIURETIC PEPTIDE 576.6 pg/mL (0-100)
[2022-09-05 00:18] LABS: Bacteria 0 SEEN /hpf (None Seen); Mucous, Urine 0 SEEN /hpf (<or=2+); Red Blood Cells-Urine 0 SEEN /hpf (0-5); Squamous Epithelial Cells - UA 0 SEEN /hpf (5-10); White Blood Cells 0 SEEN /hpf (0-5)
[2022-09-05 00:19] LABS: Color, Urine Yellow (Yellow); Glucose, Dipstick Normal (Normal); Ketone-Dipstick Negative (Negative); Leukocyte Esterase-Dipstick 25 /ul (Negative); Nitrite-Dipstick Negative (Negative); Occult Blood-Urine Negative /ul (Negative); Protein-Dipstick 30 mg/dl (Negative); Urine Bilirubin Dipstick Negative (Negative); Urine Clarity Clear (Clear); Urine Urobilinogen Normal (Normal)
[2022-09-05 00:38] VITALS: O2SAT 91
[2022-09-05] MEDS: Furosemide 40 MG/4 ML Vial IV (01:08)
== END 2022-09-05 01:32 | disposition home or self-care (01) ==
PROVIDERS: Emergency Provider Emergency Medicine; PCP Family Medicine; Visit Provider Emergency Medicine
DX: I50.9 Heart failure, unspecified (principal); E11.51 Type 2 diabetes mellitus with diabetic peripheral angiopathy without gangrene; E11.22 Type 2 diabetes mellitus with diabetic chronic kidney disease; I48.0 Paroxysmal atrial fibrillation; Z79.4 Long term (current) use of insulin; N18.30 Chronic kidney disease, stage 3 unspecified; I25.10 Atherosclerotic heart disease of native coronary artery without angina pectoris; E78.00 Pure hypercholesterolemia, unspecified; Z79.899 Other long term (current) drug therapy; Z79.82 Long term (current) use of aspirin; Z95.1 Presence of aortocoronary bypass graft; Z79.01 Long term (current) use of anticoagulants; Z87.891 Personal history of nicotine dependence
CPT/HCPCS: 71045; 80048; 81001; 83735; 83880; 85025; 85379; 87428; 93005; 96374; 99284; A4216; J1940

== ENCOUNTER → 2022-10-03 | Outpatient (CLI) | payer MEDICARE, SELFPAY ==
[2022-10-03 13:37] LABS: Anion Gap 6 (5-15); BUN 42 mg/dL (7-18); BUN/Creat Ratio 27.1 RATIO (10-20); Calcium,Total 9.3 mg/dL (8.5-10.1); Chloride 106 mmol/L (98-107); Creatinine, Serum 1.55 mg/dL (0.55-1.02); EST Glomerular Filtration Rate 34 mL/min (>60); Est Glom Filt Rate - Afr Amer 41 mL/min (>60); Glucose 163 mg/dL (74-106); Potassium 4.4 mmol/L (3.5-5.1); Sodium Level 140 mmol/L (136-145)
== END | disposition home or self-care (01) ==
LOC: MFPLAB 10:44
PROVIDERS: PCP Family Medicine; Referring Provider Family Medicine; Visit Provider Family Medicine
DX: N17.9 Acute kidney failure, unspecified (principal)
CPT/HCPCS: 36415; 80048

== ENCOUNTER → 2022-11-21 | Outpatient (CLI) | payer MEDICARE, SELFPAY ==
[2022-11-21 19:30] LABS: Anion Gap 9 (5-15); Calcium,Total 9.9 mg/dL (8.5-10.1); Chloride 103 mmol/L (98-107); Cholesterol 132 mg/dL (200); Creatinine, Serum 1.97 mg/dL (0.55-1.02); EST Glomerular Filtration Rate 26 mL/min (>60); Est Glom Filt Rate - Afr Amer 31 mL/min (>60); Glucose 151 mg/dL (74-106); High Density Lipoprotein 83 mg/dL; Potassium 4.5 mmol/L (3.5-5.1); Sodium Level 140 mmol/L (136-145); Triglycerides 91 mg/dL; Very Low Density Lipoprotein 18 mg/dL (5-40)
[2022-11-22 10:06] LABS: BUN 59 mg/dL (7-18); BUN/Creat Ratio 29.9 RATIO (10-20)
== END | disposition home or self-care (01) ==
LOC: MFPLAB 15:25
PROVIDERS: PCP Family Medicine; Referring Provider Family Medicine; Visit Provider Family Medicine
DX: E11.9 Type 2 diabetes mellitus without complications (principal)
CPT/HCPCS: 36415; 80048; 80061

== ENCOUNTER → 2022-11-23 | Outpatient (CLI) | payer MEDICARE, SELFPAY ==
--- NOTE | 2022-11-23 12:47 | PFTCOMP_ITS ---
COMPLETE PULMONARY FUNCTION TEST INTERPRETATION Brief HPI: Patient is a 81-year-old female, currently under the care of Dr. Murcia, who presents to [facility] for complete pulmonary function tests secondary to diagnosis of high risk med use. Respiratory therapist reports good effort and reproducible results. Interpretation: Forced expiration spirometry shows no large airways obstructive ventilatory defect with an FEV1 of 103% predicted. There is no significant bronchodilator response by strict ATS criteria. Spirograms are of good quality and plateau normally. The respiratory flow volume loop shows a normal pattern. Lung volumes by body plethysmography show a normal total lung capacity at 4.93 L, 119% predicted. All other lung volumes are increased symmetrically. Diffusion capacity by carbon monoxide is normal at 88% predicted. The airway resistance is normal. No previous pulmonary function tests were available for review. Impression: These pulmonary function tests are grossly within normal limits
== END | disposition home or self-care (01) ==
LOC: PSN 09:27
PROVIDERS: PCP Family Medicine; Visit Provider Internal Medicine Cardiovascular Disease
DX: I11.0 Hypertensive heart disease with heart failure (principal); I50.32 Chronic diastolic (congestive) heart failure; I48.0 Paroxysmal atrial fibrillation; I25.10 Atherosclerotic heart disease of native coronary artery without angina pectoris; E78.5 Hyperlipidemia, unspecified; Z92.29 Personal history of other drug therapy
CPT/HCPCS: 94060; 94726; 94729

== ENCOUNTER → 2023-05-20 | Outpatient (CLI) | payer MEDICARE, SELFPAY ==
[2023-05-20 18:40] LABS: Anion Gap 7 (5-15); BUN 48 mg/dL (7-18); BUN/Creat Ratio 24.4 RATIO (10-20); Calcium,Total 9.5 mg/dL (8.5-10.1); Chloride 105 mmol/L (98-107); Creatinine, Serum 1.97 mg/dL (0.55-1.02); EST Glomerular Filtration Rate 26 mL/min (>60); Est Glom Filt Rate - Afr Amer 31 mL/min (>60); Glucose 115 mg/dL (74-106); Potassium 3.8 mmol/L (3.5-5.1); Sodium Level 139 mmol/L (136-145)
== END | disposition home or self-care (01) ==
LOC: MFPLAB 14:30
PROVIDERS: PCP Family Medicine; Visit Provider Family Medicine
DX: E11.9 Type 2 diabetes mellitus without complications (principal)
CPT/HCPCS: 36415; 80048

== ENCOUNTER → 2023-08-21 | Outpatient (CLI) | payer MEDICARE, SELFPAY ==
[2023-08-21 19:52] LABS: ALB/GLOB Ratio 0.7 RATIO (0.9-2.4); AST(SGOT) 26 U/L (15-37); Alanine Aminotransfer ALT/SGPT 25 U/L (13-56); Albumin, Serum 3.6 g/dL (3.2-5.0); Alkaline Phosphatase 67 U/L (45-117); Anion Gap 10 (5-15); BUN 53 mg/dL (7-18); BUN/Creat Ratio 31.2 RATIO (10-20); Calcium,Total 9.6 mg/dL (8.5-10.1); Chloride 105 mmol/L (98-107); EST Glomerular Filtration Rate 31 mL/min (>60); Est Glom Filt Rate - Afr Amer 37 mL/min (>60); Globulin 5.1 g/dL (2.2-4.2); Glucose 169 mg/dL (74-106); Potassium 4.3 mmol/L (3.5-5.1); Protein, Total 8.7 g/dL (6.4-8.2); Sodium Level 143 mmol/L (136-145); Thyroid Stim Hormone (TSH) 1.13 uIU/mL (0.358-3.74)
== END | disposition home or self-care (01) ==
LOC: MFPLAB 11:42
PROVIDERS: PCP Family Medicine; Visit Provider Nurse Practitioner Gerontology
DX: I50.32 Chronic diastolic (congestive) heart failure (principal); Z92.29 Personal history of other drug therapy
CPT/HCPCS: 36415; 80053; 84443

== ENCOUNTER → 2023-11-20 | Outpatient (CLI) | payer MEDICARE, SELFPAY ==
[2023-11-20 17:39] LABS: Absolute Lymphocyte Count 1.51 X10^3/uL (0.83-4.51); Absolute Neutrophil Count 5.2 X10^3/uL (2.0-7.7); Basophil# 0.06 X10^3/uL; Basophil% 0.7 % (0-1); Eosinophil# 0.22 X10^3/uL; Eosinophils% 2.7 % (0-5); Hematocrit 32.3 % (37-47); Hemoglobin 9.8 g/dL (12.0-15.0); Lymphocyte # 1.51 X10^3/ul (0.83-4.51); Lymphocyte % 18.6 % (19-41); Mean Corp Hgb Conc 30.3 g/dL (32-36); Mean Corpuscular Hgb 22.3 pg (27.0-32.0); Mean Corpuscular Volume 73.4 fL (81-99); Mean Platelet Vol. 9.6 fl (6.2-12.0); Monocyte# 1.17 X10^3/uL; Monocyte% 14.4 % (0-10); NRBC Flagged by Analyzer 0 % (0-5); Neutrophil # 5.15 X10^3/uL (2.7-7.7); Neutrophil % 63.2 % (47-70); Platelet Count 316 K/mm3 (150-450); RBC Distribution Width CV 17.6 % (11.6-14.6); RBC Distribution Width SD 45.9 fl (35.1-43.9); White Blood Count 8.1 K/mm3 (4.4-11.0)
[2023-11-20 19:29] LABS: ALB/GLOB Ratio 0.6 RATIO (0.9-2.4); AST(SGOT) 22 U/L (15-37); Alanine Aminotransfer ALT/SGPT 19 U/L (13-56); Albumin, Serum 3.2 g/dL (3.2-5.0); Alkaline Phosphatase 64 U/L (45-117); Anion Gap 6 (5-15); BUN 38 mg/dL (7-18); BUN/Creat Ratio 16.8 RATIO (10-20); Calcium,Total 9.4 mg/dL (8.5-10.1); Chloride 102 mmol/L (98-107); Creatinine, Serum 2.26 mg/dL (0.55-1.02); EST Glomerular Filtration Rate 22 mL/min (>60); Est Glom Filt Rate - Afr Amer 27 mL/min (>60); Globulin 5.6 g/dL (2.2-4.2); Glucose 107 mg/dL (74-106); Potassium 4.3 mmol/L (3.5-5.1); Protein, Total 8.8 g/dL (6.4-8.2); Sodium Level 133 mmol/L (136-145)
== END | disposition home or self-care (01) ==
LOC: MFPLAB 15:58
PROVIDERS: Family Medicine; PCP Family Medicine; Visit Provider Family Medicine
DX: S37.009A Unspecified injury of unspecified kidney, initial encounter (principal)
CPT/HCPCS: 36415; 80053; 85025

== ENCOUNTER → 2023-12-04 | Outpatient (CLI) | payer MEDICARE, SELFPAY ==
[2023-12-04 19:21] LABS: Anion Gap 10 (5-15); BUN 61 mg/dL (7-18); BUN/Creat Ratio 32.8 RATIO (10-20); Calcium,Total 9.5 mg/dL (8.5-10.1); Chloride 105 mmol/L (98-107); Creatinine, Serum 1.86 mg/dL (0.55-1.02); EST Glomerular Filtration Rate 28 mL/min (>60); Est Glom Filt Rate - Afr Amer 33 mL/min (>60); Glucose 151 mg/dL (74-106); Potassium 4.4 mmol/L (3.5-5.1); Sodium Level 140 mmol/L (136-145)
== END | disposition home or self-care (01) ==
LOC: MFPLAB 15:48
PROVIDERS: PCP Family Medicine; Visit Provider Family Medicine
DX: N17.9 Acute kidney failure, unspecified (principal)
CPT/HCPCS: 36415; 80048

== ENCOUNTER → 2023-12-11 | Outpatient (CLI) | payer MEDICARE, SELFPAY ==
[2023-12-05 13:43] LABS: Protein, Urine (Random) 101.8 mg/dL (<11.9); Protein:Creat Ratio 1298 mg/g CRE (0-200)
== END | disposition home or self-care (01) ==
LOC: LABSPEC 10:10
PROVIDERS: PCP Family Medicine; Referring Provider Internal Medicine Nephrology; Visit Provider Internal Medicine Nephrology
DX: N18.4 Chronic kidney disease, stage 4 (severe) (principal)
CPT/HCPCS: 82570; 84156

== ENCOUNTER → 2023-12-30 | Outpatient (CLI) | payer MEDICARE, SELFPAY ==
--- NOTE | 2023-12-30 12:50 | US_ITS ---
EXAM: US RETROPERITONEAL LIMITED, RENAL CLINICAL INDICATION: CKD 4 TECHNIQUE: Limited grayscale and color Doppler sonographic evaluation of the retroperitoneum was performed. COMPARISON: No relevant prior studies available. FINDINGS: RIGHT KIDNEY: Right kidney measures 10.0 x 3.8 x 3.6 cm. The right renal cortex measures 1.2 cm. No hydronephrosis. No shadowing calculus. No perinephric collection is demonstrated. LEFT KIDNEY: The left kidney measures 8.8 x 3.4 x 3.8 cm. The left renal cortex measures 1.5 cm. No hydronephrosis. No shadowing calculus. No perinephric collection is demonstrated. BLADDER: The bladder measures 6.2 x 1.9 x 6.0 cm for volume of 37 mL. The urinary bladder wall measures 3 mm. US/Kidney and Bladder IMPRESSION: No acute findings in the retroperitoneum. Electronically Signed: Markell Jaquez MD at 0:03 EDT ,
== END | disposition home or self-care (01) ==
LOC: US 12:46
PROVIDERS: PCP Family Medicine; Referring Provider Family Medicine; Visit Provider Family Medicine
DX: N18.4 Chronic kidney disease, stage 4 (severe) (principal)
CPT/HCPCS: 76770

== ENCOUNTER → 2024-01-28 | Outpatient (CLI) | payer MEDICARE, SELFPAY ==
[2024-01-28 09:29] LABS: Hematocrit 33.7 % (37-47); Hemoglobin 10.1 g/dL (12.0-15.0); Mean Corpuscular Hgb 22.1 pg (27.0-32.0); Mean Corpuscular Volume 73.9 fL (81-99); Mean Platelet Vol. 9.9 fl (6.2-12.0); POSITIVE MORPHOLOGY YES; Platelet Count 299 K/mm3 (150-450); RBC Distribution Width CV 24.9 % (11.6-14.6); RBC Distribution Width SD 64.5 fl (35.1-43.9); Red Blood Count 4.56 M/mm3 (4.2-5.4); White Blood Count 6.9 K/mm3 (4.4-11.0)
[2024-01-28 09:33] LABS: Scan Indicated on CBC? Y/N YES- FLAGS NOTED
[2024-01-28 10:20] LABS: PTHIN 62.7 pg/mL (18.4-80.1)
[2024-01-28 15:20] LABS: BUN 40 mg/dL (7-18); BUN/Creat Ratio 24.2 RATIO (10-20); Calcium,Total 9.5 mg/dL (8.5-10.1); Chloride 103 mmol/L (98-107); Creatinine, Serum 1.65 mg/dL (0.55-1.02); EST Glomerular Filtration Rate 32 mL/min (>60); Est Glom Filt Rate - Afr Amer 38 mL/min (>60); Ferritin 33 ng/mL (8-252); Glucose 235 mg/dL (74-106); Iron 86 ug/dL (50-170); Iron Binding Capacity,Total 395 ug/dL (250-450); PERCENT IRON SATURATION 21.8 % (15.0-55.0); Phosphorus 2.6 mg/dL (2.5-4.9); Potassium 3.7 mmol/L (3.5-5.1); Sodium Level 134 mmol/L (136-145)
== END | disposition home or self-care (01) ==
LOC: LAB 08:20
PROVIDERS: PCP Family Medicine; Referring Provider Internal Medicine Nephrology; Visit Provider Internal Medicine Nephrology
DX: N18.4 Chronic kidney disease, stage 4 (severe) (principal); D64.9 Anemia, unspecified
CPT/HCPCS: 36415; 80069; 82728; 83540; 83550; 83970; 85027

== ENCOUNTER → 2024-05-27 | Outpatient (CLI) | payer MEDICARE, SELFPAY ==
[2024-05-27 16:37] LABS: Hemoglobin A1c 6.6 % (3.8-5.6)
[2024-05-27 17:12] LABS: ALB/GLOB Ratio 0.5 RATIO (0.9-2.4); AST(SGOT) 29 U/L (15-37); Alanine Aminotransfer ALT/SGPT 23 U/L (13-56); Albumin, Serum 3.3 g/dL (3.2-5.0); Alkaline Phosphatase 64 U/L (45-117); Anion Gap 5 (5-15); Calcium,Total 9.8 mg/dL (8.5-10.1); Chloride 104 mmol/L (98-107); Cholesterol 71 mg/dL (200); Creatinine, Serum 1.94 mg/dL (0.55-1.02); EST Glomerular Filtration Rate 26 mL/min (>60); Est Glom Filt Rate - Afr Amer 32 mL/min (>60); Globulin 6.3 g/dL (2.2-4.2); Glucose 173 mg/dL (74-106); High Density Lipoprotein 97 mg/dL; Protein, Total 9.6 g/dL (6.4-8.2); Sodium Level 138 mmol/L (136-145); Triglycerides 36 mg/dL; Very Low Density Lipoprotein 7 mg/dL (5-40)
== END | disposition home or self-care (01) ==
LOC: MFPLAB 11:24
PROVIDERS: PCP Family Medicine; Visit Provider Family Medicine
DX: E11.9 Type 2 diabetes mellitus without complications (principal)
CPT/HCPCS: 36415; 80053; 80061; 83036

== ENCOUNTER → 2024-05-28 | Outpatient (CLI) | payer MEDICARE, SELFPAY ==
[2024-05-28 21:15] LABS: ALB/GLOB Ratio 0.6 RATIO (0.9-2.4); AST(SGOT) 29 U/L (15-37); Alanine Aminotransfer ALT/SGPT 18 U/L (13-56); Albumin, Serum 3.2 g/dL (3.2-5.0); Alkaline Phosphatase 73 U/L (45-117); Anion Gap 9 (5-15); Calcium,Total 9.2 mg/dL (8.5-10.1); Chloride 109 mmol/L (98-107); Creatinine, Serum 1.94 mg/dL (0.55-1.02); EST Glomerular Filtration Rate 26 mL/min (>60); Est Glom Filt Rate - Afr Amer 32 mL/min (>60); Globulin 5.8 g/dL (2.2-4.2); Glucose 97 mg/dL (74-106); Potassium 3.7 mmol/L (3.5-5.1); Sodium Level 142 mmol/L (136-145)
== END | disposition home or self-care (01) ==
LOC: MFPLAB 13:39
PROVIDERS: PCP Family Medicine; Visit Provider Family Medicine
DX: E11.9 Type 2 diabetes mellitus without complications (principal)
CPT/HCPCS: 80053

== ENCOUNTER → 2024-06-03 | Outpatient (CLI) | payer MEDICARE, SELFPAY ==
[2024-06-03 15:41] LABS: Hematocrit 39.7 % (37-47); Hemoglobin 12.9 g/dL (12.0-15.0); Mean Corp Hgb Conc 32.5 g/dL (32-36); Mean Corpuscular Hgb 26.8 pg (27.0-32.0); Mean Corpuscular Volume 82.5 fL (81-99); Mean Platelet Vol. 9.7 fl (6.2-12.0); Platelet Count 244 K/mm3 (150-450); RBC Distribution Width SD 53.8 fl (35.1-43.9); Red Blood Count 4.81 M/mm3 (4.2-5.4)
[2024-06-03 16:22] LABS: Albumin, Serum 3.2 g/dL (3.2-5.0); Calcium,Total 9.5 mg/dL (8.5-10.1); Chloride 100 mmol/L (98-107); Creatinine, Serum 1.66 mg/dL (0.55-1.02); EST Glomerular Filtration Rate 32 mL/min (>60); Est Glom Filt Rate - Afr Amer 38 mL/min (>60); Glucose 111 mg/dL (74-106); Phosphorus 3.3 mg/dL (2.5-4.9); Potassium 3.9 mmol/L (3.5-5.1); Sodium Level 135 mmol/L (136-145)
[2024-06-04 07:25] LABS: BUN 37 mg/dL (7-18); BUN/Creat Ratio 22.3 RATIO (10-20)
== END | disposition home or self-care (01) ==
LOC: LAB 15:10
PROVIDERS: PCP Family Medicine; Referring Provider Internal Medicine Nephrology; Visit Provider Internal Medicine Nephrology
DX: E11.22 Type 2 diabetes mellitus with diabetic chronic kidney disease (principal); N18.32 Chronic kidney disease, stage 3b; D50.9 Iron deficiency anemia, unspecified
CPT/HCPCS: 36415; 80069; 85027

== ENCOUNTER → 2024-06-04 | Outpatient (CLI) | payer MEDICARE, SELFPAY ==
[2024-06-04 14:23] LABS: Protein, Urine (Random) 36.3 mg/dL (<11.9); Protein:Creat Ratio 1921 mg/g CRE (0-200)
== END | disposition home or self-care (01) ==
LOC: LAB 12:29 → LABSPEC 12:32
PROVIDERS: PCP Family Medicine; Referring Provider Internal Medicine Nephrology; Visit Provider Internal Medicine Nephrology
DX: E11.22 Type 2 diabetes mellitus with diabetic chronic kidney disease (principal); N18.32 Chronic kidney disease, stage 3b; D50.9 Iron deficiency anemia, unspecified
CPT/HCPCS: 82570; 84156

== ENCOUNTER → 2024-08-18 | Outpatient (CLI) | payer MEDICARE, SELFPAY ==
--- NOTE | 2024-08-18 10:48 | RAD_ITS ---
INDICATION: Amiodarone EXAMINATION/TECHNIQUE: X-RAY - XR Chest 2 Views COMPARISON: Prior study dated: 09/04/2022 FINDINGS: LINES/DEVICES: None. LUNGS: Linear atelectatic changes or scarring in the lower lungs. No new infiltrate is seen. Surgical clips in the left upper chest. No evidence of pleural effusions. MEDIASTINUM AND CARDIOVASCULAR STRUCTURES: Stable cardiomediastinal silhouette. Atherosclerotic calcifications of tortuosity of the thoracic aorta. BONES AND SOFT TISSUES: Compression fractures of lower thoracic vertebrae appear to be chronic. RAD/Chest PA and Lateral IMPRESSION: No radiographic evidence of acute cardiopulmonary disease. Electronically Signed: Henok Pearson MD at 12:57 EDT ,
[2024-08-18 12:34] LABS: Free T3 1.7 pg/mL (2.18-3.98); T4 Free Direct 1.27 ng/dL (0.76-1.46)
== END | disposition home or self-care (01) ==
LOC: RAD 10:33
PROVIDERS: PCP Family Medicine; Referring Provider Nurse Practitioner Gerontology; Visit Provider Nurse Practitioner Gerontology
DX: Z79.899 Other long term (current) drug therapy (principal); Z92.29 Personal history of other drug therapy
CPT/HCPCS: 36415; 71046; 84439; 84443; 84481

== ENCOUNTER → 2024-09-02 | Outpatient (CLI) | payer MEDICARE, SELFPAY ==
[2024-09-02 15:35] LABS: ALB/GLOB Ratio 0.6 RATIO (0.9-2.4); AST(SGOT) 25 U/L (15-37); Alanine Aminotransfer ALT/SGPT 22 U/L (13-56); Albumin, Serum 3.5 g/dL (3.2-5.0); Alkaline Phosphatase 66 U/L (45-117); Anion Gap 4 (5-15); BUN 41 mg/dL (7-18); BUN/Creat Ratio 22.5 RATIO (10-20); Calcium,Total 9.7 mg/dL (8.5-10.1); Chloride 105 mmol/L (98-107); Cholesterol 150 mg/dL (200); Creatinine, Serum 1.82 mg/dL (0.55-1.02); EST Glomerular Filtration Rate 28 mL/min (>60); Est Glom Filt Rate - Afr Amer 34 mL/min (>60); Globulin 5.7 g/dL (2.2-4.2); Glucose 147 mg/dL (74-106); High Density Lipoprotein 110 mg/dL; Protein, Total 9.2 g/dL (6.4-8.2); Sodium Level 139 mmol/L (136-145); Triglycerides 29 mg/dL; Very Low Density Lipoprotein 6 mg/dL (5-40)
== END | disposition home or self-care (01) ==
LOC: MFPLAB 11:48
PROVIDERS: PCP Family Medicine; Visit Provider Family Medicine
DX: E11.9 Type 2 diabetes mellitus without complications (principal)
CPT/HCPCS: 36415; 80053; 80061

== ENCOUNTER → 2024-12-11 | Outpatient (CLI) | payer MEDICARE, SELFPAY ==
--- NOTE | 2024-12-11 10:19 | RAD_ITS ---
PROCEDURE: FEMUR MIN 2 VIEWS REASON FOR EXAM: Fall with injury TECHNIQUE: 4 view(s) of each femur COMPARISON: None. FINDINGS: RIGHT FEMUR: No fracture. No suspicious bone lesion. Moderate degenerative changes in the hip and knee. Soft tissues are unremarkable. RAD/Femur Min 2 Views IMPRESSION: Degenerative changes with no acute osseous abnormality in the right femur Reading Location: [facility]
--- NOTE | 2024-12-11 10:20 | RAD_ITS ---
PROCEDURE: AP PELVIS AND BILATERAL HIPS REASON FOR EXAM: Patient fell in October. Pain in both hips for 10-12 days. TECHNIQUE: AP pelvis and two views each hip. COMPARISON: Right femur dated 12/11/2024. FINDINGS: No fracture. No suspicious bone lesion. Normal alignment. Mild degenerative narrowing involving the bilateral hip joints. Vascular clips are noted bilaterally. Atherosclerotic calcific disease. 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 No acute osseous findings. Reading Location: [facility]
== END | disposition home or self-care (01) ==
LOC: MTRAD 10:17
PROVIDERS: PCP Family Medicine; Referring Provider Family Medicine; Visit Provider Family Medicine
DX: M25.551 Pain in right hip (principal); W19.XXXA Unspecified fall, initial encounter
CPT/HCPCS: 73521; 73552

== ENCOUNTER → 2024-12-30 | Outpatient (CLI) | payer MEDICARE, SELFPAY ==
[2024-12-30 17:44] LABS: Albumin, Serum 3.7 g/dL (3.4-4.8); Anion Gap 14 (5-15); BUN 40 mg/dL (4-19); BUN/Creat Ratio 21.8 RATIO (10-20); Calcium,Total 9.6 mg/dL (7.6-11.0); Carbon Dioxide 22.9 mmol/L (21.0-32.0); Chloride 103 mmol/L (98-108); Creatinine, Serum 1.84 mg/dL (0.70-1.20); EST Glomerular Filtration Rate 27 (>60); Glucose 204 mg/dL (70-99); Phosphorus 3.2 mg/dL (2.7-4.5); Potassium 4.1 mmol/L (3.3-5.1); Sodium Level 140 mmol/L (133-145)
== END | disposition home or self-care (01) ==
LOC: BIMLAB 13:44
PROVIDERS: PCP Family Medicine; Referring Provider Internal Medicine Nephrology; Visit Provider Internal Medicine Nephrology
DX: M05.70 Rheumatoid arthritis with rheumatoid factor of unspecified site without organ or systems involvement (principal); Z79.899 Other long term (current) drug therapy; K76.0 Fatty (change of) liver, not elsewhere classified
CPT/HCPCS: 36415; 80069

== ENCOUNTER → 2025-01-20 | Outpatient (CLI) | payer MEDICARE, SELFPAY ==
[2025-01-20 15:54] LABS: Anion Gap 13 (5-15); BUN 33 mg/dL (4-19); BUN/Creat Ratio 22.5 RATIO (10-20); Calcium,Total 9.6 mg/dL (7.6-11.0); Carbon Dioxide 23.9 mmol/L (21.0-32.0); Chloride 104 mmol/L (98-108); Creatinine, Serum 1.46 mg/dL (0.70-1.20); EST Glomerular Filtration Rate 36 (>60); Glucose 113 mg/dL (70-99); Magnesium 2.1 mg/dL (1.5-2.2); Potassium 3.7 mmol/L (3.3-5.1); Sodium Level 141 mmol/L (133-145)
== END | disposition home or self-care (01) ==
LOC: MFPLAB 11:40
PROVIDERS: PCP Family Medicine; Referring Provider Family Medicine; Visit Provider Family Medicine
DX: R25.2 Cramp and spasm (principal)
CPT/HCPCS: 36415; 80048; 83735

== ENCOUNTER → 2025-03-18 | Outpatient (CLI) | payer MEDICARE, SELFPAY | END | disposition home or self-care (01) | LOC: LABSPEC 16:49 | PROVIDERS: PCP Family Medicine; Visit Provider Podiatrist Foot & Ankle Surgery | DX: L97.523 Non-pressure chronic ulcer of other part of left foot with necrosis of muscle (principal) | CPT/HCPCS: 87070; 87077; 87186; 87205 ==

== ENCOUNTER → 2025-08-25 | Outpatient (CLI) | payer MEDICARE, SELFPAY ==
[2025-08-25 11:27] LABS: Hematocrit 39.0 % (37-47); Hemoglobin 12.4 g/dL (12.0-15.0); Mean Corp Hgb Conc 31.8 g/dL (32-36); Mean Corpuscular Volume 90.1 fL (81-99); Mean Platelet Vol. 10.5 fl (6.2-12.0); Platelet Count 265 K/mm3 (150-450); RBC Distribution Width CV 16.8 % (11.6-14.6); RBC Distribution Width SD 55.2 fl (35.1-43.9); Red Blood Count 4.33 M/mm3 (4.2-5.4); White Blood Count 6.4 K/mm3 (4.4-11.0)
[2025-08-25 11:58] LABS: PTHIN 38 pg/mL (11-61)
[2025-08-25 12:03] LABS: Albumin, Serum 3.4 g/dL (3.4-4.8); Anion Gap 14 (5-15); BUN 28 mg/dL (4-19); BUN/Creat Ratio 27.6 RATIO (10-20); Calcium,Total 9.9 mg/dL (7.6-11.0); Carbon Dioxide 22.9 mmol/L (21.0-32.0); Chloride 107 mmol/L (98-108); Glucose 145 mg/dL (70-99); Potassium 3.5 mmol/L (3.3-5.1)
== END | disposition home or self-care (01) ==
PROVIDERS: PCP Family Medicine; Referring Provider Internal Medicine Nephrology; Visit Provider Internal Medicine Nephrology
DX: N18.32 Chronic kidney disease, stage 3b (principal)
CPT/HCPCS: 36415; 80069; 83970; 85027

== ENCOUNTER → 2025-09-01 | Outpatient (CLI) | payer MEDICARE, SELFPAY ==
--- NOTE | 2025-09-01 10:25 | BD_ITS ---
PROCEDURE: DEXA BONE DENSITY STUDY 09/01/2025 REASON FOR EXAM: F, age 84 y/o . Postmenopausal. TECHNIQUE: Procedure Code: BDDBD Modality: DX Procedure: DEXA BONE DENSITY STUDY COMPARISON: None FINDINGS: BMD and T-SCORES Lumbar spine: 1.208 g/cm2, T-score 1.4 Levels: L1 through L4 Left femoral neck: 0.464 g/cm2, T-score -3.5 Femoral neck comparison data not recommended for monitoring change. Left total hip: 0.535 g/cm2, T-score -3.3 The World Health Organization has defined the following categories based on bone density: Normal bone density: T-score equal to or greater than -1.0 Osteopenia: T-score between -1.0 and -2.5 Osteoporosis: T-score equal to or less than -2.5 FRAX (or Comparable) Fracture Risk Assessment: 10 Year Probability of Fracture: Major Osteoporotic Fracture: 37% Hip Fracture: 16% (Note: FRAX is not to be reported in setting of normal range bone density, osteoporosis on DEXA, known history of osteoporosis, prior osteoporotic hip or vertebral fracture, or for any patient undergoing pharmacological treatment for bone loss.) The National Osteoporosis Foundation (NOF) recommends pharmacological treatment for patients with a FRAX 10-year risk of 3% or higher for a hip fracture, or 20% or higher for a major osteoporotic fracture, to prevent osteoporosis and reduce fracture risk. The patient does meet the pharmacological treatment recommendations for prevention of osteoporosis. BD/Dexa Bone Density Study IMPRESSION: OSTEOPOROSIS. Recommend follow-up as clinically warranted. Reading Location: [place] [id number]
== END | disposition home or self-care (01) ==
LOC: OPBD 10:16
PROVIDERS: PCP Family Medicine; Referring Provider Family Medicine; Visit Provider Family Medicine
DX: Z78.0 Asymptomatic menopausal state (principal); N95.9 Unspecified menopausal and perimenopausal disorder
CPT/HCPCS: 77080